=== PATIENT | female | born 1960 | race Caucasian/White ===

== ENCOUNTER → 2016-04-23 | Outpatient (REF) | payer BC | LOC: M LAB REF 16:17 | PROVIDERS: ATTEND Internal Medicine | DX: M79.662 Pain in left lower leg (principal) ==

== ENCOUNTER → 2016-04-23 | Outpatient (CLI) | payer BC ==
[~2016-04-23] MED LIST: ISOVUE-370 76% 100ML VIAL (Q9967) As Ordered ONE
--- NOTE | 2016-04-23 17:06 | REP ---
Left lower extremity Duplex Doppler venous ultrasound: Real time compression and duplex Doppler interrogation of the left lower extremity deep venous system is performed. The left common femoral, superficial femoral and popliteal veins are fully compressible with transducer pressure and demonstrate normal spontaneous and phasic flow, without evidence of deep venous thrombosis. Impression: No evidence of deep venous thrombosis of the left lower extremity femoral popliteal venous system. Signed by Francisco Barrientos MD 04/23/2016 04:57 P
--- NOTE | 2016-04-23 18:26 | REP ---
CHEST PA AND LATERAL: 04/23/2016. Clinical history: Dyspnea and chest pain. Lower extremity swelling on the left. Two-views show the lung cooper adequately inflated. Some minor basilar fibrotic change but no definite effusion. Some minor lateral pleural thickening. No pneumothorax, acute infiltrate or nodular mass. Heart size not grossly enlarged. The aorta is normal for age. Airway is intact. No mediastinal or hilar mass. Degenerative changes are seen in the spine. Bony thorax shows no compression deformity. Right upper quadrant clips from prior cholecystectomy. Impression: 1. Minor basilar fibrotic change without acute cardiopulmonary change. Signed by Brooks Hernández MD 04/23/2016 07:41 P
--- NOTE | 2016-04-23 18:39 | REP ---
CT ANGIOGRAM OF THE CHEST: 04/23/2016. Clinical history: Dyspnea, chest pain, evaluate for pulmonary emboli. Technique: Bolus of 75 mL of Isovue-370 with scanning through the chest with our pulmonary embolism protocol and with coronal and sagittal thick slab MIP reformats. Comparison: 06/30/2012 CT. Findings: Atelectatic changes seen bilaterally in the mid and lower chest. There is no pleural effusion, acute infiltrate or air bronchograms. No bronchiectasis. I do not see any significant interstitial lung disease or fibrosis. No parenchymal mass or nodules. Heart size mildly enlarged, but no pericardial thickening or effusion. The aorta shows atherosclerotic changes but without aneurysm or dissection. The main, right and left pulmonary arteries and the mediastinum are without filling defects. The lobar, segmental and subsegmental arteries are without filling defects or vessel cutoff within either lung. No hilar adenopathy or mass and no axillary, supraclavicular mass. The bone windows show sternum, manubrium, medial heads of the clavicles, scapulae, visualized portions of the glenohumeral joints and humeral heads as well as the ribs all without fracture or destructive lesion. Marginal osteophytes throughout the mid and lower thoracic spine, greatest in the lower thoracic spine, but without compression deformity or destructive lesion. In the upper abdomen, there is no splenomegaly or focal splenic lesion. Only a portion of the liver is included without gross enlargement of the right lobe, although the left lobe is mildly prominent. No biliary dilatation or adjacent ascites. Adrenal glands intact. Upper poles of kidneys show function without obstruction. The adrenal glands without nodular cyst. That portion of pancreas included was unremarkable. Clips about the gallbladder fossa noted with the common duct without visible filling defect. No hiatal hernia. Impression: 1. No CT evidence of pulmonary thromboembolism. I see no infiltrate, effusion or pneumothorax. There is some dependent atelectatic change but no nodule, mass or other significant finding. 2. Slightly prominent left hepatic lobe, but no gross hepatosplenomegaly. 3. No mediastinal, hilar, axillary, supraclavicular or upper abdominal adenopathy. Bones are intact. Signed by Brooks Hernández MD 04/23/2016 07:42 P
== END ==
LOC: M RAD 16:18
PROVIDERS: ATTEND Internal Medicine
DX: R06.02 Shortness of breath (principal); M79.605 Pain in left leg
CPT/HCPCS: 71020; 71275; 93971; Q9967

== ENCOUNTER → 2016-05-02 | Outpatient (CLI) | payer BC ==
[~2016-05-02] MED LIST changes: -ISOVUE-370 76% 100ML VIAL (Q9967) As Ordered ONE; +METHACHOLINE KIT (J7674) INH ONE
== END ==
LOC: M CARPUL 12:31
PROVIDERS: ATTEND Internal Medicine
DX: R06.00 Dyspnea, unspecified (principal)

== ENCOUNTER → 2016-06-25 | Outpatient (REF) | payer BC | LOC: M LAB REF 12:06 | PROVIDERS: ATTEND Internal Medicine | DX: L02.413 Cutaneous abscess of right upper limb (principal) ==

== ENCOUNTER → 2016-06-25 | Outpatient (CLI) | payer BC ==
--- NOTE | 2016-06-27 14:45 | SLEEPHOME ---
DATE OF PROCEDURE: 06/25/2016 REFERRING PROVIDER: Kathy Mckeon NP INTERPRETATION: Diagnostic home sleep testing was performed due to concern for the obstructive sleep apnea syndrome in this patient with history of excessive somnolence. For testing, a NOX-T3 respiratory monitoring device was used. Continuous record was made of pulse, oxygen saturation, air flow, chest and abdominal strain, and body position. 9 hours and 59 minutes of data were reviewed. Of these, 7 hours and 29 minutes were marked as time in bed. During the interval marked time in bed, there were 174 respiratory events identified of 10 seconds in duration or greater for a respiratory event index of 23.2. The events were primarily obstructive. Baseline heart rate was 69 beats per minute. Pulse rate ranged 56 to 84. Baseline saturation was 89%. Lowest oxygen saturation recorded was 57%. Testing was performed in both the supine and nonsupine positions. IMPRESSION: Abnormal home sleep testing with repetitive respiratory events and oxygen desaturations to 57% with a respiratory event index of 23 is consistent with the obstructive sleep apnea syndrome. RECOMMENDATION: The patient should undergo formal sleep evaluation and in laboratory pressure titration in light of the profound oxygen desaturations.
== END ==
LOC: M SLEEP HO 09:59
PROVIDERS: ATTEND Nurse Practitioner Adult Health
DX: G47.30 Sleep apnea, unspecified (principal)

== ENCOUNTER → 2016-08-05 | Outpatient (CLI) | payer BC ==
--- NOTE | 2016-08-07 11:19 | SLEEPCENT ---
DATE OF STUDY: 08/05/2016 ORDERING PROVIDER: Kathy Mckeon NP Nocturnal polysomnography was performed for the titration of pressure therapy in this patient with a clinical diagnosis of obstructive sleep apnea syndrome, confirmed by home testing, which revealed a respiratory event index of 24. For testing, the patient was fit with a ResMed AirFit F20 full face mask of medium size. 4 cm of water pressure were applied to the circuit, and the lights were extinguished. 7 hours and 22 minutes of data were reviewed. There were 373 minutes of sleep identified. Sleep latency was prolonged at 59 minutes. Rapid eye movement (REM) latency was prolonged at 110 minutes. Sleep architecture was quite good with three REM periods appreciated. Overall sleep efficiency was 85%. The patient's electrocardiogram (EKG) showed a sinus rhythm with an average heart rate of 58 beats per minute. Electroencephalogram (EEG) showed normal waveforms for awake and sleep. Respiratory events were fully palliated with continuous positive airway pressure (CPAP) at a pressure of +8. Hypoventilatory oxygen desaturations, however, prompted the addition of supplemental oxygen at 2 liters. Best sleep was seen with CPAP 8 cm and 2 liters of oxygen bled through the system. Limb activity persisted over the course of the study, but arousals were few, and the remaining measures of sleep physiology were normal. IMPRESSION: Obstructive sleep apnea syndrome (G47.33). RECOMMENDATION: Nightly use of pressure therapy with 8 cm of water with supplemental oxygen at 2 liters to address hypoventilatory oxygen desaturations.
== END ==
LOC: M SLEEP 20:25
PROVIDERS: ATTEND Nurse Practitioner Adult Health
DX: G47.33 Obstructive sleep apnea (adult) (pediatric) (principal)

== ENCOUNTER → 2016-12-28 | Outpatient (REF) | payer BC | LOC: M LAB REF 16:19 | PROVIDERS: ATTEND Internal Medicine | DX: L03.115 Cellulitis of right lower limb (principal) ==

== ENCOUNTER → 2017-02-19 | Outpatient (REF) | payer BC | LOC: M LAB REF 12:05 | PROVIDERS: ATTEND Internal Medicine | DX: L72.3 Sebaceous cyst (principal) ==

== ENCOUNTER → 2017-04-17 | Outpatient (REF) | payer MEDICAID | LOC: M LAB REF 17:10 | DX: J20.9 Acute bronchitis, unspecified (principal) ==

== ENCOUNTER → 2018-02-21 | Outpatient (REF) | payer MEDICAID, OTHER | LOC: M SFHCPLAZ 17:36 | DX: L57.0 Actinic keratosis (principal); L57.8 Other skin changes due to chronic exposure to nonionizing radiation | CPT/HCPCS: 88305 ==

== ENCOUNTER → 2019-03-26 | Outpatient (REF) | payer OTHER, MEDICAID | LOC: M LAB REF 18:15 | PROVIDERS: ATTEND Dermatology | DX: L57.0 Actinic keratosis (principal) ==

== ENCOUNTER → 2019-07-16 | Outpatient (REF) | payer OTHER | LOC: M LAB REF 16:56 | PROVIDERS: ATTEND Dermatology | DX: L72.0 Epidermal cyst (principal) ==

== ENCOUNTER → 2020-04-06 | Outpatient (CLI) | payer OTHER ==
--- NOTE | 2020-04-06 10:48 | REP ---
INDICATION: DVT COMPARISON: None. TECHNIQUE: Barrientos scale and color Doppler evaluation right lower extremity using linear high frequency transducer. FINDINGS: Ultrasound examination of the right lower extremity deep venous structures from the common femoral vein to the popliteal vein demonstrates normal compressibility flow and wave patterns in response to respiration and augmentation. There is no evidence for deep venous thrombosis. IMPRESSION: No evidence for deep venous thrombosis. <Electronically signed by Gerson Pollard > 04/06/20 [id number]
== END ==
LOC: M RAD 10:03
PROVIDERS: ATTEND Physician Assistant
DX: R22.41 Localized swelling, mass and lump, right lower limb (principal); M79.604 Pain in right leg

== ENCOUNTER 2020-11-10 20:38 | Emergency (ER) | payer OTHER ==
[~2020-11-10] VITALS: Ht 170.2 cm; Wt 114.8 kg
[2020-11-10] MEDS ORDERED: GABA-282 (20:54)
[2020-11-10] MEDS ORDERED: IRBE150T7 (20:54)
[2020-11-10] MEDS ORDERED: PRAM1TAB7 (20:54)
[2020-11-10] MEDS ORDERED: DULO1CAP6 (20:54)
[2020-11-10] MEDS ORDERED: XARE15TA (20:54)
[2020-11-10] MEDS ORDERED: MONT10TA10 (20:54)
[2020-11-10] MEDS ORDERED: SIMV10TA21 (20:54)
[2020-11-10] MEDS ORDERED: LEVO150T7 (20:54)
--- NOTE | 2020-11-10 22:03 | REPVR ---
PROCEDURE INFORMATION: Exam: US Duplex Right Lower Extremity Veins, Limited Exam date and time: 11/10/2020 9:41 PM Age: 60 years old Clinical indication: Pain; Leg, lower; Right; Additional info: HX of bloot clots with pain and swelling of right lower leg TECHNIQUE: Imaging protocol: Real-time Duplex ultrasound of the Right Lower Extremity with 2-D gr scale, color Doppler flow and spectral waveform analysis with image documentation. Limited exam was focused on the right lower extremity veins. COMPARISON: US Duplex, Ext,LOWER veins,unilat 04/06/2020 10:38 AM FINDINGS: Right deep veins: Unremarkable. The common femoral, femoral, proximal profunda femoral and popliteal veins are patent without thrombus. Normal Doppler waveforms. Normal compressibility and/or augmentation response. Right superficial veins: Unremarkable. Saphenofemoral junction is patent without thrombus. Soft tissues: Unremarkable. IMPRESSION: No evidence of deep vein thrombosis. Electronically signed by: Abner Crow On 11/10/2020 22:02:56 PM
[2020-11-10 23:53] LABS: BASO % 0.4 % (0.0-1.0); EOS # 0.3 10^3/uL (0.0-0.5); EOS % 3.6 % (0.0-3.0); HEMATOCRIT 42.6 % (36.0-47.0); HEMOGLOBIN 13.5 g/dl (12.0-15.5); LYMPH # 2.4 10^3/uL (1.5-5.0); LYMPH % 32.9 % (24.0-44.0); MEAN CORPUSCULAR HEMOGLOBIN 30.2 pg (27.0-33.0); MEAN CORPUSCULAR HGB CONC 31.7 g/dl (32.0-36.5); MEAN CORPUSCULAR VOLUME 95.3 fl (80.0-96.0); MONO # 0.8 10^3/uL (0.0-0.8); MONO % 11.7 % (2.0-8.0); NEUTROPHILS # 3.7 10^3/uL (1.5-8.5); NEUTROPHILS % 51.1 % (36.0-66.0); PLATELET COUNT, AUTOMATED 248 10^3/uL (150-450); RED BLOOD COUNT 4.47 10^6/uL (4.00-5.40); WHITE BLOOD COUNT 7.2 10^3/uL (4.0-10.0)
[2020-11-11 00:07] LABS: PARTIAL THROMBOPLASTIN TIME 29.4 SECONDS (25.9-37.0)
[2020-11-11] MEDS ORDERED: ACETAMINOPHEN 500 MG TAB PO ONE (00:15)
[2020-11-11] MEDS ORDERED: GABAPENTIN 300 MG CAP PO ONE (00:15)
[2020-11-11 00:29] LABS: BLOOD UREA NITROGEN 12 MG/DL (7-18); C REACTIVE PROTEIN QUANTITATIV 1.14 MG/DL (0.00-0.30); CALCIUM LEVEL 8.8 MG/DL (8.8-10.2); CARBON DIOXIDE LEVEL 29 MEQ/L (21-32); CHLORIDE LEVEL 111 MEQ/L (98-107); CREATININE FOR GFR 0.88 MG/DL (0.55-1.30); GLOMERULAR FILTRATION RATE > 60.0 (>45); GLUCOSE, FASTING 95 MG/DL (70-100); SODIUM LEVEL 143 MEQ/L (136-145); URIC ACID 6.2 MG/DL (2.6-6.0)
[2020-11-11 00:33] LABS: INR 0.95; PROTHROMBIN TIME 13.1 SECONDS (12.7-14.5)
[2020-11-11 00:36] LABS: ERYTHROCYTE SEDIMENTATION RATE 35 mm/hr (0-30)
--- NOTE | 2020-11-11 01:49 | REPVR ---
PROCEDURE INFORMATION: Exam: XR Right Foot Exam date and time: 11/11/2020 12:49 AM Age: 60 years old Clinical indication: Other: R foot pain, redness/swelling TECHNIQUE: Imaging protocol: XR Right foot. Views: 3 or more views. COMPARISON: 1. US Duplex, Ext,LOWER veins,unilat RIGHT 2020-11-10 21:32 2. US Duplex, Ext,LOWER veins,unilat 2020-04-06 10:38 FINDINGS: Bones/joints: Moderate degenerative joint disease. No bony erosion. Soft tissues: Soft tissue swelling. IMPRESSION: Soft tissue swelling. No bony erosion. Electronically signed by: Tahir Patton On 11/11/2020 01:48:56 AM
--- NOTE | 2020-11-11 01:50 | REPVR ---
PROCEDURE INFORMATION: Exam: XR Right Tibia and Fibula Exam date and time: 11/11/2020 12:49 AM Age: 60 years old Clinical indication: Other: Rle redness/swelling, ttp TECHNIQUE: Imaging protocol: XR Right tibia and fibula. Views: 2 views. COMPARISON: 1. US Duplex, Ext,LOWER veins,unilat RIGHT 2020-11-10 21:32 2. US Duplex, Ext,LOWER veins,unilat 2020-04-06 10:38 FINDINGS: Bones/joints: Moderate degenerative joint disease.No acute fracture or dislocation. Soft tissues: Mild soft tissue swelling. IMPRESSION: No acute osseous abnormality. Electronically signed by: Tahir Patton On 11/11/2020 01:50:23 AM
[2020-11-11] MEDS ORDERED: CLINDAMYCIN 600 MG in IV 1 EA IV ONE (02:00)
[2020-11-11] MEDS ORDERED: CEPH500C PO (02:01)
[2020-11-11] MEDS ORDERED: PRED20TA PO (02:01)
[2020-11-11 02:54] VITALS: BP 152/76
== END 2020-11-11 02:56 | disposition home or self-care (01) ==
LOC: M ED 20:38
DX: L03.115 Cellulitis of right lower limb (principal); E66.9 Obesity, unspecified; I10 Essential (primary) hypertension; M51.86 Other intervertebral disc disorders, lumbar region; M54.9 Dorsalgia, unspecified; E78.5 Hyperlipidemia, unspecified; J45.909 Unspecified asthma, uncomplicated; E03.9 Hypothyroidism, unspecified; F32.9 Major depressive disorder, single episode, unspecified; Z86.718 Personal history of other venous thrombosis and embolism

== ENCOUNTER 2021-01-08 14:21 | Emergency (ER) | payer OTHER ==
[~2021-01-08] VITALS: Ht 167.6 cm; Wt 127.3 kg
[~2021-01-08 14:21] MED LIST changes: +CEPH500C PO; +DULO1CAP6; +GABA-282; +IRBE150T7; +LEVO150T7; -METHACHOLINE KIT (J7674) INH ONE; +MONT10TA10; +PRAM1TAB7; +PRED20TA PO; +SIMV10TA21; +XARE15TA
--- OUTSIDE RECORDS SUMMARY | 2021-01-08 14:28 | CCD | Continuity of Care Document ---
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 take on empty stomach. 30tabs Unknown Gabapentin 100mg Capsules 1 by mouth twice a day Unknown Irbesartan 150mg Tablets Take One Tablet By Mouth Every Day Unknown Pramipexole Dihydrochloride 1mg Ta blets Take One Tablet By Mouth Every Morning And One Tablet Before Bedtime Unknown Immunizations Description No Information Available Vital Signs Date Vital Result Comment 03/16/2019 10:27am BP Systolic 153 mmHg BP Diastolic 80 mmHg Heart Rate 67 /min Respiratory Rate 20 /min O2 % BldC Oximetry 97 % Body Temperature 99.0 F Weight 228.00 lb Height 67 inches 5'7" BMI (Body Mass Index) 35.7 kg/m2 Pain Level 5 12/06/2018 1:06pm BP Systolic 143 mmHg BP Diastolic 79 mmHg Heart Rate 61 /min Respiratory Rate 18 /min O2 % BldC Oximetry 97 % Body Temperature 98.7 F Weight 228.00 lb Height 67 inches 5'7" BMI (Body Mass Index) 35.7 kg/m2 Pain Level 6 Results Test Acquired Date Facility Test Result H/L Range Note Basic Metabolic Profile 11/10/[address] [address] [phone] Glucose, Fasting 95 mg/dL Normal 70-100 1 Blood Urea Nitrogen 12 mg/dL Normal 7-18 Creatinine For GFR 0.88 mg/dL Normal 0.55-1.30 Glomerular Filtration Rate > 60.0 Normal >45 2 Sodium Level 143 mEq/L Normal 136-145 Potassium Serum 4.0 mEq/L Normal 3.5-5.1 Chloride Level 111 mEq/L High 98-107 Carbon Dioxide Level 29 mEq/L Normal 21-32 Anion Gap 3 mEq/L Low 8-16 Calcium Level 8.8 mg/dL Normal 8.8-10.2 Laboratory test finding 11/10/[address] [address] [phone] Uric Acid 6.2 mg/dL High 2.6-6.0 3 C Reactive Protein Quantitativ 1.14 mg/dL High 0.00-0.30 4 Prothrombin Time/Inr 11/10/2020 [facility] enter [address] [place] [address] [phone] Prothrombin Time 13.1 seconds Normal 12.7-14.5 Inr 0.95 Normal 5 Laboratory test finding 11/10/[address] [address] [phone] Partial Thromboplastin Time 29.4 seconds Normal 25 .9-37.0 CBC With Differential 11/10/[address] [address] [phone] White Blood Count 7.2 10 Normal 4.0-10.0 Red Blood Count 4.47 10 Normal 4.00-5.40 Hemoglobin 13.5 g/dL Normal 12.0-15.5 Hematocrit 42.6 % Normal 36.0-47.0 Mean Corpuscular Volume 95.3 fl Normal 80.0-96.0 Mean Corpuscular Hemoglobin 30.2 pg Normal 27.0-33.0 Mean Corpuscular HGB Conc 31.7 g/dL Low 32.0-36.5 Red Cell Distribution Width 13.1 % Normal 11.5-14.5 Platelet Count, Automated 248 10 Normal 150-450 Neutrophils % 51.1 % Normal 36.0-66.0 Lymph % 32.9 % Normal 24.0-44.0 [place] % 11.7 % High 2.0-8.0 Eos % 3.6 % High 0.0-3.0 Baso % 0.4 % Normal 0.0-1.0 Immature Granulocyte % 0.3 % Normal 0-3.0 Nucleated Red Blood Cell % 0.0 % Normal 0-0 Neutrophils # 3.7 10 Normal 1.5-8.5 Lymph # 2.4 10 Normal 1.5-5.0 [place] # 0.8 10 Normal 0.0-0.8 Eos # 0.3 10 Normal 0.0-0.5 Baso # 0.0 10 Normal 0.0-0.2 Laboratory test finding 11/10/2020 [place] [address] [phone] Erythrocyte Sedimentation Rate 35 mm/hr High 0 -30 1 Not an Urgent Care Patient 2 Units are mL/min/1.73 m2 Chronic Kidney Disease Staging per NKF: Stage I & II GFR >=60 Normal to Mildly Decreased Stage III GFR 30-59 Moderately Decreased Stage IV GFR 15-29 Severely Decreased Stage V GFR <15 Very Little GFR Left ESRD GFR <15 on MAID SUPERVISOR 3 0003] @---END MOBILAB COMMEN T--- 4 0003] @---END MOBILAB COMMEN T--- 5 THERAPUTIC HUMAN INR VALUES INDICATIONS NORMAL RANGES PROPHYLAXIS/TREATMENT OF: VENOUS THROMBOSIS 2.0-3.0 PULMONARY EMBOLISM 2.0-3.0 PREVENTION OF SYSTEMIC EMBOLISM FROM: TISSUE HEART VALVES 2.0-3.0 ACUTE MYOCARDIAL INFARCTION 2.0-3.0 VALVULAR HEART DISEASE 2.0-3.0 ATRIAL FIBRILLATION 2.0-3.0 MECHANICAL VALVES(HIGH RISK) 2.5-3.5 RECURRENT MYOCARDIAL INFARCTION 2.5-3.5 Procedures Description No Information Available Medical Devices Description No Information Available Encounters Description No Information Available Assessments Description No Information Available Plan of Treatment No Information Available Functional Status Description No Information Available Mental Status Description No Information Available Referrals Description No Information Available
--- OUTSIDE RECORDS SUMMARY | 2021-01-08 14:28 | CCD | Continuity of Care Document ---
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 Camp ra DO Grace Onset: 08/03/2011 Pure hypercholesterolemia Fatou Greco DO Onset: 012 Varicose veins of lower extremity Fatou Greco DO Onset: 08/03/2011 Social History Type Date Description Comments Sex Unknown Tobacco Use Start: Unknown Never Smoked Cigarettes ETOH Use Occasionally consumes wine Tobacco Use Start: Unknown Patient has never smoked Allergies, Adverse Reactions, Alerts Description No Known Drug Allergies Medications Active Medications SIG Qnty Indications Ordering Provide r Date Xarelto 10mg Tablets 1 by mouth every day with food 30tabs Fatou Greco DO 09/07/2020 Gabapentin 100mg Capsules 1 an am and 1 in afternoon 60gerard Greco DO 07/08/2020 Levothyroxine Sodium 150mcg Tablet s take one tablet by mouth every day 30tabs Fatou Greco DO Aspirin 81 Low Dose 81mg Chewtabs 1 by mouth every day 30units Fatou Greco DO 04/07/2020 Duloxetine HCL 60mg Caps DR Part Take One Capsule By Mouth Twice A Day 60caps Fatou Greco DO 05/2019 Montelukast Sodium 10mg Tablets Take One Tablet By Mouth AT Bedtime 30tabs Fatou Greco,DO 01/19 Pramipexole Dihydrochloride 1mg Ta blets take one tablet by mouth every morning and take one tablet by mouth at bedtime 60tabs Fatou Greco,DO 09/12/2018 Irbesartan 150mg Tablets Take One Tablet By Mouth Every Day 90tabs Fatou Greco,DO 10/22/2017 Simvastatin 10mg Tablets take one tablet by mouth at bedtime 30tabs Fatou Greco,DO 09/19/2017 Cetirizine HCL 10mg Tablets one tab by mouth daily at bed time 30tabs Fatou Greco,DO 03/07/20 17 Hibiclens 4% Liquid use as directed with showering daily 750ml Fatou Greco,DO 01/04/2017 Vesicare 10mg Tablets take one tablet by mouth every day 30tabs Fatou Greco,DO 11/05/2016 Clobetasol Propionate E 0.05% Crea m apply to affected areas twice a day 180gm Fatou Greco,DO Proair Respiclick 10 8(90Base) mcg/Act Aerosol one to two puffs four times a day or as needed for cough or shortness of breath and before exercising. 1units Fatou GrecoDO Co Q 10 100mg Capsules 1 by mouth every day Fatou Greco,DO 01/20/2016 Tylenol 8 Hour Arthritis Pain 650mg Tablets ER 1 by mouth as needed every 8 hours Fatou GrecoDO 11/29/2015 Flonase Allergy Relief 50mcg/Act Suspension 2 sprays per nostril every in the morning as needed 1units Fatou GrecoDO 05/06/2015 Gabapentin 300mg Capsules take one in pm 30caps Fatou GrecoDO 12/08/2014 Compression Stockings 30-40 use as directed 2units Fatou Greco DO 04/04/2011 Triamcinolone Acetonide 0.1% Cream use bid as directed 1Tube Fatou Greco DO 04/04/2011 Vitamin D3 2000Unit Capsules 1 po qd 30caps Fatou GrecoDO 03/15/2009 Clindamycin Phosphate 1% Solution 1 drop to affected area bid Unknown Medications Administered in Office Medication SIG Qnty Indications Ordering Provider Date Immunization Adminstration,1 Vaccine/Tox oid Injection Fatou Greco,DO 12/28/2019 Immunization Adminstration,1 Vaccine/Tox oid Injection Fatou Greco,DO 01/20/2019 Immunization Adminstration,1 Vaccine/Tox oid Injection Fatou Greco,DO 01/23/2018 Immunizations CPT Code Status Date Vaccine Lot # [id number] Given 12/28/2019 Influenza Vaccin e Quadrivalent Preser/Antibiotic Free Im Use [id number] Given 01/20/2019 Influenza Vaccin e Quadrivalent Preser/Antibiotic Free Im Use [id number] [id number] Given 01/23/2018 Influenza Virus Vaccine, Quadrivalent ([id number]), Derived From 2 Given 12/28/2016 Influenza Vaccin e Quadrivalent Preser/Antibiotic Free Im Use [id number] Q2037 Given 02/20/2016 Fluvirin Virus Vaccine [id number] 01 Q2037 Given 12/24/2014 Fluvirin Virus Vaccine [id number] 01 Q2037 Given 01/09/2013 Fluvirin Virus Vaccine [id number] 01 Q2037 Given 01/14/2012 Fluvirin Virus Vaccine 60617 01 [id number] Given 01/31/2009 Influenza Virus Vaccine Vital Signs Date Vital Result Comment 09/07/2020 9:35am BP Systolic 132 mmHg BP Diastolic 80 mmHg Heart Rate 74 /min Height 66 inches 5'6" Weight 256.00 lb BMI (Body Mass Index) 41.3 kg/m2 07/08/2020 9:37am BP Systolic 138 mmHg RT Arm BP Diastolic 84 mmHg RT Arm Heart Rate 64 /min Height 66 inches 5'6" Weight 260.12 lb BMI (Body Mass Index) 42.0 kg/m2 Results Test Acquired Date Facility Test Result H/L Range Note Basic Metabolic Profile 11/10/[address] [address] [phone] Glucose, Fasting 95 mg/dL Normal 70-100 Blood Urea Nitrogen 12 mg/dL Normal 7-18 Creatinine For GFR 0.88 mg/dL Normal 0.55-1.30 Glomerular Filtration Rate > 60.0 Normal >45 1 Sodium Level 143 mEq/L Normal 136-145 Potassium Serum 4.0 mEq/L Normal 3.5-5.1 Chloride Level 111 mEq/L High 98-107 Carbon Dioxide Level 29 mEq/L Normal 21-32 Anion Gap 3 mEq/L Low 8-16 Calcium Level 8.8 mg/dL Normal 8.8-10.2 Laboratory test finding 11/10/[address] [address] [phone] Uric Acid 6.2 mg/dL High 2.6-6.0 2 C Reactive Protein Quantitativ 1.14 mg/dL High 0.00-0.30 3 Prothrombin Time/Inr 11/10/2020 [facility] enter [address] [place] [address] [phone] Prothrombin Time 13.1 seconds Normal 12.7-14.5 Inr 0.95 Normal 4 Laboratory test finding 11/10/[address] [address] [phone] Partial Thromboplastin Time 29.4 seconds Normal 25 .9-37.0 CBC With Differential 11/10/[address] [address] [phone] White Blood Count 7.2 10 Normal 4.0-10.0 [...] 36.0-66.0 Lymph % 32.9 % Normal 24.0-44.0 Campbell % 11.7 % High 2.0-8.0 Eos % 3.6 % High 0.0-3.0 Baso % 0.4 % Normal 0.0-1.0 Immature Granulocyte % 0.3 % Normal 0-3.0 Nucleated Red Blood Cell % 0.0 % Normal 0-0 Neutrophils # 3.7 10 Normal 1.5-8.5 Lymph # 2.4 10 Normal 1.5-5.0 Campbell # 0.8 10 Normal 0.0-0.8 Eos # 0.3 10 Normal 0.0-0.5 Baso # 0.0 10 Normal 0.0-0.2 Laboratory test finding 11/10/2020 [facility] [address] [id number] [phone] Erythrocyte Sedimentation Rate 35 mm/hr High 0 -30 Comprehensive Chem Profile 09/07/2020 [facility] [employer] Instrument Tuner: [place] [address] [phone] Glucose 116 mg/dL High 74 - 99 5 BUN 14 mg/dL 7 - 18 Creatinine 0.9 mg/dL 0.6 - 1.3 Sodium 140 mEq/L 136 - 145 Potassium 4.2 mEq/L 3.5 - 5.1 Chloride 104 mEq/L 98 - 107 Carbon Dioxide 28 mEq/L 21 - 32 Calcium 9.1 mg/dL 8.5 - 10.1 Alk. Phosphatase 122 mg/dL High 46 - 116 Total Bilirubin 0.4 mg/dL 0.2 - 1.0 Ast (Sgot) 19 U/L 15 - 37 Alt (SGPT) 23 U/L 12 - 78 Albumin 3.4 g/dL 3.4 - 5.0 Total Protein 7.0 g/dL 6.4 - 8.2 A/G Ratio 0.94 CALC Low 1.00 - 1.90 GFR >= 60 mL/min >60 GFR >= 60 mL/min >60 6 Laboratory test finding 09/07/2020 [facility] P[employer] Instrument Tuner: [place] [address] [phone] Thyroid Stimulating Hormone 0.84 uIU/mL 0.3 6 - 3.74 Complete Blood Count 07/08/2020 [facility] [employer] Instrument Tuner: [place] [address] [phone] WBC 5.6 x10*3/UL 4.1 - 10.9 RBC 4.44 x10*6/UL 4.20 - 6.30 Hemoglobin 13.5 g/dL 12.0 - 18.0 Hematocrit 40.2 % 37.0 - 51.0 MCV 90.5 fL 80.0 - 97.0 MCH 30.5 pg 26.0 - 32.0 MCHC 33.7 g/dL 31.0 - 38.0 RDW 12.8 % 11.6 - 13.7 PLT 230 x10*3/UL 140 - 440 MPV 9.9 FL 7.8 - 11.0 Lymph % 31.2 % 10.0 - 58.5 Mid % 8.5 % 1.7 - 9.3 Neut % 60.3 % 37.0 - 92.0 Lymph # 1.7 x10*3/UL 0.6 - 4.1 Mid # 0.5 x10*3/UL 0.1 - 0.6 Neut # 3.4 x10*3/UL 2.0 - 7.8 Comprehensive Chem Profile 07/08/2020 [facility] [employer] Tuner: [place] [address] [phone] Glucose 123 mg/dL High 74 - 99 7 BUN 18 mg/dL 7 - 18 Creatinine 1.0 mg/dL 0.6 - 1.3 Sodium 140 mEq/L 136 - 145 Potassium 4.1 mEq/L 3.5 - 5.1 Chloride 105 mEq/L 98 - 107 Carbon Dioxide 28 mEq/L 21 - 32 Calcium 8.8 mg/dL 8.5 - 10.1 Alk. Phosphatase 111 mg/dL 46 - 116 Total Bilirubin 0.5 mg/dL 0.2 - 1.0 Ast (Sgot) 26 U/L 15 - 37 Alt (SGPT) 30 U/L 12 - 78 Albumin 3.8 g/dL 3.4 - 5.0 Total Protein 7.5 g/dL 6.4 - 8.2 A/G Ratio 1.03 CALC 1.00 - 1.90 GFR 57 mL/min Low >60 GFR >= 60 mL/min >60 8 Laboratory test finding 07/08/2020 [facility] Percussion Instrument Tuner: Dr Enmanuel [place] [address] [phone] Thyroid Stimulating Hormone 3.58 uIU/mL 0.3 6 - 3.74 T4 Free 1.04 ng/dL 0.76 - 1.46 1 Units are mL/min/1.73 m2 Chronic Kidney Disease Staging per NKF: Stage I & II GFR >=60 Normal to Mildly Decreased Stage III GFR 30-59 Moderately Decreased Stage IV GFR 15-29 Severely Decreased Stage V GFR <15 Very Little GFR Left ESRD GFR <15 on [facility] [facility] 2 0003] @---END MOBILAB COMMEN T--- 3 0003] @---END MOBILAB COMMEN T--- 4 THERAPUTIC HUMAN INR VALUES INDICATIONS NORMAL RANGES PROPHYLAXIS/TREATMENT OF: VENOUS THROMBOSIS 2.0-3.0 PULMONARY EMBOLISM 2.0-3.0 PREVENTION OF SYSTEMIC EMBOLISM FROM: TISSUE HEART VALVES 2.0-3.0 ACUTE MYOCARDIAL INFARCTION 2.0-3.0 VALVULAR HEART DISEASE 2.0-3.0 ATRIAL FIBRILLATION 2.0-3.0 MECHANICAL VALVES(HIGH RISK) 2.5-3.5 RECURRENT MYOCARDIAL INFARCTION 2.5-3.5 5 100-125 mg/dL PRE-DIABET ES/FASTING >126 mg/dL DIABETES/FASTING 6 CHRONIC KIDNEY DISEASE STAGI NG PER NKF STAGE I & II GFR >= 60 NORMAL TO MILDLY DECREASED STAGE III GFR 30-59 MODERATELY DECREASED STAGE IV GFR 15-29 SEVERELY DECREASED STAGE V GFR <15 VERY LITTLE GFR LEFT ESRD GFR <15 ON [facility] 7 100-125 mg/dL PRE-DIABET ES/FASTING >126 mg/dL DIABETES/FASTING 8 CHRONIC KIDNEY DISEASE STAGI NG PER NKF STAGE I & II GFR >= 60 NORMAL TO MILDLY DECREASED STAGE III GFR 30-59 MODERATELY DECREASED STAGE IV GFR 15-29 SEVERELY DECREASED STAGE V GFR <15 VERY LITTLE GFR LEFT ESRD GFR <15 ON [facility] Procedures Date Code Description Status 09/07/2020 10685 Office/Outpatient Established Mo d MDM 30-39 Min Completed 07/08/2020 09892 Office/Outpatient Established Mo d MDM 30-39 Min Completed 01/15/2020 [id number] Mammogram Completed 08/25/2018 [id number] Mammogram Completed 04/30/2014 [id number] Colonoscopy Completed 02/15/2014 [id number] Mammogram Completed 02/10/2013 [id number] Mammogram Completed 01/24/2012 [id number] Mammogram Completed Medical Devices Description No Information Available Encounters Type Date Location Provider Dx Diagnosis [facility]/07[facility] I[facility] Phlbts and thombophlb of superfic vessels of low extrm, bi M43.17 Spondylolisthesis, lumbosacr al region M54.17 Radiculopathy, lumbosacral r egion E03.9 Hypothyroidism, unspecified G47.33 Obstructive sleep apnea (carolyn lt) (pediatric) I10 Essential (primary) hyperten ami G89.29 Other chronic pain E66.01 Morbid (severe) obesity due to excess calories Z68.41 Body mass index [BMI] 40.0-4 4.9, adult Office Visit 07/08/2020 9:[facility] I80.03 Phlbts and thombophlb of superfic vessels of low extrm, bi M43.17 Spondylolisthesis, lumbosacr al region M54.17 Radiculopathy, lumbosacral r egion E03.9 Hypothyroidism, unspecified G47.33 Obstructive sleep apnea (carolyn lt) (pediatric) I10 Essential (primary) hyperten ami H81.319 Aural vertigo, unspecified e ar E66.01 Morbid (severe) obesity due to excess calories Z68.41 Body mass index [BMI] 40.0-4 4.9, adult Assessments Date Code Description Provider 09/07/2020 I80.03 Phlebitis and thromb ophlebitis of superficial vessels of lower extremities, bilateral Fatou Greco,DO 09/07/2020 M43.17 Spondylolisthesis, lumbosacral r egion Fatou Greco,DO 09/07/2020 M54.17 Radiculopathy, lumbosacral regio n Fatou Greco,DO 09/07/2020 E03.9 Hypothyroidism, unspecified Fritz Greco,DO 09/07/2020 G47.33 Obstructive sleep apnea (adult) (pediatric) Fatou Greco,DO 09/07/2020 I10 Essential (primary) hypertension Fatou Greco,DO 09/07/2020 G89.29 Other chronic pain Damari Escobar 09/07/2020 E66.01 Morbid (severe) obesity due to e xcess calories Fatou Greco,DO 09/07/2020 Z68.41 Body mass index [BMI]40.0-44.9, adult Fatou Greco,DO 07/08/2020 I80.03 Phlebitis and thromb ophlebitis of superficial vessels of lower extremities, bilateral Fatou Greco,DO 07/08/2020 M43.17 Spondylolisthesis, lumbosacral r egion Fatou Greco,DO 07/08/2020 M54.17 Radiculopathy, lumbosacral regio n Fatou Greco,DO 07/08/2020 E03.9 Hypothyroidism, unspecified Fritz Greco,DO 07/08/2020 G47.33 Obstructive sleep apnea (adult) (pediatric) Fatou Greco,DO 07/08/2020 I10 Essential (primary) hypertension Fatou Greco,DO 07/08/2020 H81.319 Aural vertigo, unspecified ear L darion Greco,DO 07/08/2020 E66.01 Morbid (severe) obesity due to e xcess calories Fatou Greco,DO 07/08/2020 Z68.41 Body mass index [BMI]40.0-44.9, adult Fatou Greco DO Plan of Treatment Future Appointment(s):* 02/03/2021 10:20 am - Fatou Greco DO at [facility] 09/07/2020 - Fatou Greco DO* I80.03 Phlebitis and thrombophlebitis of superficial vessels of lower extremities, bilateral * M43.17 Spondylolisthesis, lumbosacral region * M54.17 Radiculopathy, lumbosacral region * E03.9 Hypothyroidism, unspecified * G47.33 Obstructive sleep apnea (adult) (pediatric) * I10 Essential (primary) hypertension * G89.29 Other chronic pain * E66.01 Morbid (severe) obesity due to excess calories * Z68.41 Body mass index [BMI]40.0-44.9, adult * All * New Medication:* Xarelto 10 mg - 1 by mouth every day with food Functional Status Description No Information Available Mental Status Description No Information Available Referrals Description No Information Available
--- OUTSIDE RECORDS SUMMARY | 2021-01-08 14:29 | CCD ---
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 Name Role Phone Shanae Astudillo MD Unavailable Unavailable Shanae sAtudillo MD Unavailable Unavailable Shanae Astudillo MD Unavailable Unavailable Shanae Astudillo MD Unavailable Unavailable Shanae Astudillo MD Unavailable Unavailable Shanae Astudillo MD Unavailable Unavailable Shanae Astudillo MD Unavailable Unavailable Shanae Astudillo MD Unavailable Unavailable Shanae Astudillo MD Unavailable Unavailable Shanae Astudillo MD Unavailable Unavailable Shanae Astudillo MD Unavailable Unavailable Shanae Astudillo MD Unavailable Unavailable Shanae Astudillo MD Unavailable Unavailable Shanae Astudillo MD Unavailable Unavailable Shanae Astudillo MD Unavailable Unavailable Shanae Astudillo MD Unavailable Unavailable Shanae Astudillo MD Unavailable Unavailable Shanae Astudillo MD Unavailable Unavailable Shanae Astudillo MD Unavailable Unavailable Sahnae Astudillo MD Unavailable Unavailable Shanae Astudillo MD Unavailable Unavailable Shanae Astudillo MD Unavailable Unavailable Shanae Astudillo MD Unavailable Unavailable Shanae Astudillo MD Unavailable Unavailable Bolla, S Kieran DAIGLE Unavailable Unavailable Bolla, Shanae Alcaraz MD Unavailable Unavailable Bolla, S Kieran DAIGLE Unavailable Unavailable Bolla, S Kieran DAIGLE Unavailable Unavailable Bolla, S Kieran DAIGLE Unavailable Unavailable Bolla, S Kieran DAIGLE Unavailable Unavailable Bolla, Shanae Alcaraz MD Unavailable Unavailable Bolla, S Kieran DAIGLE Unavailable Unavailable Bolla, S Kieran DIAGLE Unavailable Unavailable Bolla, S Kieran DAIGLE Unavailable Unavailable Bolla, S Kieran DAIGLE Unavailable Unavailable Bolla, S Kieran DAIGLE Unavailable Unavailable Bolla, S Kieran DAIGLE Unavailable Unavailable Bolla, S Kieran DAIGLE Unavailable Unavailable Bolla, S Kieran DAIGLE Unavailable Unavailable Bolla, S Kieran DAIGLE Unavailable Unavailable Bolla, S Kieran DAIGLE Unavailable Unavailable Bolla, S Kieran DAIGLE Unavailable Unavailable Bolla, S Kieran DAIGLE Unavailable Unavailable Bolla, S Kieran DAIGLE Unavailable Unavailable Bolla, S Kieran DAIGLE Unavailable Unavailable Bolla, S Kieran DAIGLE Unavailable Unavailable Bolla, S Kieran DAIGLE Unavailable Unavailable Bolla, S Kieran DAIGLE Unavailable Unavailable Bolla, Shanae Alcaraz MD Unavailable Unavailable CHANG, Isaiah SHAW MD Unavailable Unavailable CHANG, Isaiah SHAW MD Unavailable Unavailable CHANG, Isaiah SHAW MD Unavailable Unavailable CHANG, Isaiah SHAW MD Unavailable Unavailable CHANG, Isaiah SHAW MD Unavailable Unavailable CHANG, Isaiah SHAW MD Unavailable Unavailable CHANG, Isaiah SHAW MD Unavailable Unavailable CHANG, Isaiah SHAW MD Unavailable Unavailable CHANG, Isaiah SHAW MD Unavailable Unavailable CHANG, Isaiah SHAW MD Unavailable Unavailable CHANG, Isaiah SHAW MD Unavailable Unavailable CHANG, Isaiah SHAW MD Unavailable Unavailable CHANG, Isaiah SHAW MD Unavailable Unavailable CHANG, Isaiah SHAW MD Unavailable Unavailable CHANG, Isaiah SHAW MD Unavailable Unavailable CHANG, Isaiah SHAW MD Unavailable Unavailable CHANG, Isaiah SHAW MD Unavailable Unavailable CHANG, Isaiah SHAW MD Unavailable Unavailable CHANG, Isaiah SHAW MD Unavailable Unavailable CHANG, Isaiah SHAW MD Unavailable Unavailable CHANG, Isaiah SHAW MD Unavailable Unavailable CHANG, Isaiah SHAW MD Unavailable Unavailable CHANG, Isaiah SHAW MD Unavailable Unavailable CHANG, Isaiah SHAW MD Unavailable Unavailable CHANG, Isaiah SHAW MD Unavailable Unavailable CHANG, Isaiah SHAW MD Unavailable Unavailable CHANG, Isaiah SHAW MD Unavailable Unavailable CHANG, Isaiah SHAW MD Unavailable Unavailable CHANG, L COLIN DAIGLE Unavailable Unavailable CHANG, L COLIN DAIGLE Unavailable Unavailable CHANG, L COLIN DAIGLE Unavailable Unavailable CHANG, L COLIN DAIGLE Unavailable Unavailable CHANG, L COLIN DAIGLE Unavailable Unavailable CHANG, L COLIN DAIGLE Unavailable Unavailable CHANG, L COLIN DAIGLE Unavailable Unavailable CHANG, L COLIN DAIGLE Unavailable Unavailable CHANG, L COLIN DAIGLE Unavailable Unavailable CHANG, L COLIN DAIGLE Unavailable Unavailable CHANG, L COLIN DAIGLE Unavailable Unavailable CHANG, L COLIN DAIGLE Unavailable Unavailable CHANG, L COLIN DAIGLE Unavailable Unavailable CHANG, L COLIN DAIGLE Unavailable Unavailable CHANG, L COLIN DAIGLE Unavailable Unavailable CHANG, L COLIN DAIGLE Unavailable Unavailable CHANG, L COLIN DAIGLE Unavailable Unavailable BETO, Pradeep BROUSSARD MD Unavailable Unavailable BETO, Pradeep BROUSSARD MD Unavailable Unavailable BETO, Pradeep BROUSSARD MD Unavailable Unavailable BETO, Pradeep BROUSSARD MD Unavailable Unavailable BETO, Pradeep BROUSSARD MD Unavailable Unavailable BETO, Pradeep BROUSSARD MD Unavailable Unavailable BETO, Pradeep BROUSSARD MD Unavailable Unavailable BETO, Pradeep BROUSSARD MD Unavailable Unavailable BETO, Pradeep BROUSSARD MD Unavailable Unavailable BETO, Pradeep BROUSSARD MD Unavailable Unavailable BETO, Pradeep BROUSSARD MD Unavailable Unavailable BETO, Pradeep BROUSSARD MD Unavailable Unavailable BETO, Pradeep BROUSSRAD MD Unavailable Unavailable BETO, Pradeep BROUSSARD MD Unavailable Unavailable BETO, Pradeep BROUSSARD MD Unavailable Unavailable BETO, Pradeep BROUSSARD MD Unavailable Unavailable BETO, Pradeep BROUSSARD MD Unavailable Unavailable BETO, Pradeep BROUSSARD MD Unavailable Unavailable BETO, Pradeep BROUSSARD MD Unavailable Unavailable BETO, Pradeep BROUSSARD MD Unavailable Unavailable BETO, Pradeep BROUSSARD MD Unavailable Unavailable BETO, Pradeep BROUSSARD MD Unavailable Unavailable BETOPradeep CERON MD Unavailable Unavailable BETO, Pradeep BROUSSARD MD Unavailable Unavailable EBTO, Pradeep BROUSSARD MD Unavailable Unavailable BETO, Pradeep BROUSSARD MD Unavailable Unavailable BETO, Pradeep BROUSSARD MD Unavailable Unavailable BETO, Pradeep BROUSSARD MD Unavailable Unavailable BETO, Pradeep BROUSSARD MD Unavailable Unavailable BETO, Pradeep BROUSSARD MD Unavailable Unavailable BETO, Pradeep BROUSSARD MD Unavailable Unavailable BETO, Pradeep BROUSSARD MD Unavailable Unavailable BETO, Pradeep BROUSSARD MD Unavailable Unavailable BETO, Pradeep BROUSSARD MD Unavailable Unavailable BETO, Pradeep BROUSSARD MD Unavailable Unavailable BETO, Pradeep BROUSSARD MD Unavailable Unavailable BETO, Pradeep BROUSSARD MD Unavailable Unavailable BETO, Pradeep BROUSSARD MD Unavailable Unavailable BETO, Pradeep BROUSSARD MD Unavailable Unavailable BETO, Pradeep BROUSSARD MD Unavailable Unavailable BETO, Pradeep BROUSSARD MD Unavailable Unavailable BETO, Pradeep BROUSSARD MD Unavailable Unavailable BETO, Pradeep BROUSSARD MD Unavailable Unavailable BETO, Pradeep BROUSSARD MD Unavailable Unavailable BETO, Pradeep BROUSSARD MD Unavailable Unavailable BETO, Pradeep BROUSSARD MD Unavailable Unavailable BETO, Pradeep BROUSSARD MD Unavailable Unavailable BETO, Pradeep BROUSSARD MD Unavailable Unavailable BETO, Pradeep BROUSSARD MD Unavailable Unavailable BETO, E BOBO DAIGLE Unavailable Unavailable BETO, Pradeep BROUSSARD MD Unavailable Unavailable BETO, E BOBO DAIGLE Unavailable Unavailable BETO, Pradeep BROUSSARD MD Unavailable Unavailable BETO, Pradeep BROUSSARD MD Unavailable Unavailable BETO, Pradeep BROUSSARD MD Unavailable Unavailable BETO, Pradeep BROUSSARD MD Unavailable Unavailable BETO, Pradeep BROUSSARD MD Unavailable Unavailable BETO, Pradeep BROUSSARD MD Unavailable Unavailable BETO, Pradeep BROUSSARD MD Unavailable Unavailable BETO, Pradeep BROUSSARD MD Unavailable Unavailable BETO, Pradeep BROUSSARD MD Unavailable Unavailable BETO, Pradeep BROUSSARD MD Unavailable Unavailable BETO, Pradeep BROUSSARD MD Unavailable Unavailable BETO, Pradeep BROUSSARD MD Unavailable Unavailable BETO, Pradeep BROUSSARD MD Unavailable Unavailable BETO, Pradeep BROUSSARD MD Unavailable Unavailable BETO, Pradeep BROUSSARD MD Unavailable Unavailable BETO, Pradeep BROUSSARD MD Unavailable Unavailable BETO, Pradeep BROUSSARD MD Unavailable Unavailable BETO, Pradeep BROUSSARD MD Unavailable Unavailable BETO, Pradeep BROUSSARD MD Unavailable Unavailable BETO, Pradeep BROUSSARD MD Unavailable Unavailable BETO, Pradeep BROUSSARD MD Unavailable Unavailable BETO, Pradeep BROUSSARD MD Unavailable Unavailable BETO, Pradeep BROUSSARD MD Unavailable Unavailable BETO, Pradeep BROUSSARD MD Unavailable Unavailable BETO, Pradeep BROUSSARD MD Unavailable Unavailable BETO, Pradeep BROUSSARD MD Unavailable Unavailable BETO, Pradeep BROUSSARD MD Unavailable Unavailable BETO, Pradeep BROUSSARD MD Unavailable Unavailable BETO, Pradeep BROUSSARD MD Unavailable Unavailable BETO, Pradeep BROUSSARD MD Unavailable Unavailable BETO, Pradeep BROUSSARD MD Unavailable Unavailable BETO, Pradeep BROUSSARD MD Unavailable Unavailable BETO, Pradeep BROUSSARD MD Unavailable Unavailable BETO, Pradeep BROUSSARD MD Unavailable Unavailable BETO, Pradeep BROUSSARD MD Unavailable Unavailable BETO, Pradeep BROUSSARD MD Unavailable Unavailable BETO, Pradeep BROUSSARD MD Unavailable Unavailable BETO, Pradeep BROUSSARD MD Unavailable Unavailable BETO, Pradeep BROUSSARD MD Unavailable Unavailable BETO, Pradeep BROUSSARD MD Unavailable Unavailable BETO, Pradeep BROUSSARD MD Unavailable Unavailable BETO, Pradeep BROUSSARD MD Unavailable Unavailable BETO, Pradeep BROUSSARD MD Unavailable Unavailable BETO, Pradeep BROUSSARD MD Unavailable Unavailable BETO, Pradeep BROUSSARD MD Unavailable Unavailable BETO, Pradeep BROUSSARD MD Unavailable Unavailable Grace, Fatou DO Unavailable Unavailable Grace, Fatou DO Unavailable Unavailable Grace, Fatou DO Unavailable Unavailable Grace, Fatou DO Unavailable Unavailable Grace, Fatou DO Unavailable Unavailable Grace, Fatou DO Unavailable Unavailable Grace, Fatou DO Unavailable Unavailable Grace, Fatou DO Unavailable Unavailable Grace, Fatou DO Unavailable Unavailable Grace, Fatou DO Unavailable Unavailable Grace, Fatou DO Unavailable Unavailable Grace, Fatou DO Unavailable Unavailable Grace, Fatou DO Unavailable Unavailable Grace, Fatou DO Unavailable Unavailable Grace, Fatou DO Unavailable Unavailable Grace, Fatou DO Unavailable Unavailable Grace, Fatou DO Unavailable Unavailable Grace, Fatou DO Unavailable Unavailable Grace, Fatou DO Unavailable Unavailable Grace, Fatou DO Unavailable Unavailable Grace, Fatou DO Unavailable Unavailable Grace, Fatou DO Unavailable Unavailable Grace, Fatou DO Unavailable Unavailable Grace, Fatou DO Unavailable Unavailable Grace, Fatou DO Unavailable Unavailable Grace, Fatou DO Unavailable Unavailable Grace, Fatou DO Unavailable Unavailable Grace, Fatou DO Unavailable Unavailable Grace, Fatou DO Unavailable Unavailable Grace, Fatou DO Unavailable Unavailable Grace, Fatou DO Unavailable Unavailable Grace, Fatou DO Unavailable Unavailable Grace, Fatou DO Unavailable Unavailable Grace, Fatou DO Unavailable Unavailable Grace, Fatou DO Unavailable Unavailable Grace, Fatou DO Unavailable Unavailable Grace, Fatou DO Unavailable Unavailable Grace, Fatou DO Unavailable Unavailable Grace, Fatuo DO Unavailable Unavailable Grace, Fatou DO Unavailable Unavailable Grace, Fatou DO Unavailable Unavailable Grace, Fatou DO Unavailable Unavailable Grace, Fatou DO Unavailable Unavailable Grace, Fatou DO Unavailable Unavailable Grace, Fatou DO Unavailable Unavailable Grace, Fatou DO Unavailable Unavailable Grace, Fatou DO Unavailable Unavailable Grace, Fatou DO Unavailable Unavailable Grace, Fatou DO Unavailable Unavailable Grace, Fatou DO Unavailable Unavailable Grace, Fatou DO Unavailable Unavailable Grace, Fatou DO Unavailable Unavailable Grace, Fatou DO Unavailable Unavailable Grace, Fatou DO Unavailable Unavailable Grace, Fatou DO Unavailable Unavailable Grace, Fatou DO Unavailable Unavailable Grace, Fatou DO Unavailable Unavailable Grace, Fatou DO Unavailable Unavailable Grace, Fatou DO Unavailable Unavailable Grace, Fatou DO Unavailable Unavailable Grace, Fatou DO Unavailable Unavailable Grace, Fatou DO Unavailable Unavailable Grace, Fatou DO Unavailable Unavailable Grace, Fatou DO Unavailable Unavailable Grace, Fatou DO Unavailable Unavailable Grace, Fatou DO Unavailable Unavailable Grace, Fatou DO Unavailable Unavailable Grace, Fatou DO Unavailable Unavailable Grace, Fatou DO Unavailable Unavailable Grace, Fatou DO Unavailable Unavailable Grace, Fatou DO Unavailable Unavailable Grace, Fatou DO Unavailable Unavailable Grace, Fatou DO Unavailable Unavailable Grace, Fatou DO Unavailable Unavailable DEY, L ARPITA PA Unavailable Unavailable DEY, L ARPITA PA Unavailable Unavailable DEY, L ARPITA PA Unavailable Unavailable DEY, L ARPITA PA Unavailable Unavailable DEY, L ARPITA PA Unavailable Unavailable DEY, L ARPITA PA Unavailable Unavailable DEY, L ARPITA PA Unavailable Unavailable DEY, L ARPITA PA Unavailable Unavailable DEY, L ARPITA PA Unavailable Unavailable DEY, L ARPITA PA Unavailable Unavailable DEY, L ARPITA PA Unavailable Unavailable DEY, L ARPITA PA Unavailable Unavailable DEY, L ARPITA PA Unavailable Unavailable DEY, L ARPITA PA Unavailable Unavailable DEY, L ARPITA PA Unavailable Unavailable DEY, L ARPITA PA Unavailable Unavailable DEY, L ARPITA PA Unavailable Unavailable DEY, L ARPITA PA Unavailable Unavailable DEY, L ARPITA PA Unavailable Unavailable DEY, L ARPITA PA Unavailable Unavailable DEY, L ARPITA PA Unavailable Unavailable DEY, L ARPITA PA Unavailable Unavailable DEY, L ARPITA PA Unavailable Unavailable DEY, L ARPITA PA Unavailable Unavailable DEY, L ARPITA PA Unavailable Unavailable DEY, L ARPITA PA Unavailable Unavailable DEY, L ARPITA PA Unavailable Unavailable DEY, L ARPITA PA Unavailable Unavailable DEY, L ARPITA PA Unavailable Unavailable DEY, L ARPITA PA Unavailable Unavailable DEY, L ARPITA PA Unavailable Unavailable DEY, L ARPITA PA Unavailable Unavailable DEY, L ARPITA PA Unavailable Unavailable DEY, L ARPITA PA Unavailable Unavailable DEY, L ARPITA PA Unavailable Unavailable Isaiah DEY PA Unavailable Unavailable Isaiah DEY PA Unavailable Unavailable ESTRELLITA, L ARPITA PA Unavailable Unavailable DEY, L ARPITA PA Unavailable Unavailable Grace, Fatou DO Unavailable Unavailable Grace, Fatou DO Unavailable Unavailable Grace, Fatou DO Unavailable Unavailable Grace, Fatou DO Unavailable Unavailable Grace, Fatou DO Unavailable Unavailable Grace, Fatou DO Unavailable Unavailable Grace, Fatou DO Unavailable Unavailable Grace, Fatou DO Unavailable Unavailable Grace, Fatou DO Unavailable Unavailable Grace, Fatou DO Unavailable Unavailable Grace, Fatou DO Unavailable Unavailable Grace, Fatou DO Unavailable Unavailable Grace, Fatou DO Unavailable Unavailable Grace, Fatou DO Unavailable Unavailable Grace, Fatou DO Unavailable Unavailable Grace, Fatou DO Unavailable Unavailable Grace, Fatou DO Unavailable Unavailable Grace, Fatou DO Unavailable Unavailable Grace, Fatou DO Unavailable Unavailable Grace, Fatou DO Unavailable Unavailable Grace, Fatou DO Unavailable Unavailable Grace, Fatou DO Unavailable Unavailable Grace, Fatou DO Unavailable Unavailable Grace, Fatou DO Unavailable Unavailable Grace, Fatou DO Unavailable Unavailable Grace, Fatou DO Unavailable Unavailable Grace, Fatou DO Unavailable Unavailable Grace, Fatou DO Unavailable Unavailable Grace, Fatou DO Unavailable Unavailable Grace, Fatou DO Unavailable Unavailable Grace, Fatou DO Unavailable Unavailable Grace, Fatou DO Unavailable Unavailable Grace, Fatou DO Unavailable Unavailable Grace, Fatou DO Unavailable Unavailable Grace, Fatou DO Unavailable Unavailable Grace, Fatou DO Unavailable Unavailable Grace, Fatou DO Unavailable Unavailable Grace, Fatou DO Unavailable Unavailable Grace, Fatou DO Unavailable Unavailable Grace, Fatou DO Unavailable Unavailable Grace, Fatou DO Unavailable Unavailable Grace, Fatou DO Unavailable Unavailable Grace, Fatou DO Unavailable Unavailable Grace, Fatou DO Unavailable Unavailable Grace, Fatou DO Unavailable Unavailable Grace, Fatou DO Unavailable Unavailable Grace, Fatou DO Unavailable Unavailable Grace, Fatou DO Unavailable Unavailable Grace, Fatou DO Unavailable Unavailable Grace, Fatou DO Unavailable Unavailable Grace, Fatou DO Unavailable Unavailable Grace, Fatou DO Unavailable Unavailable Grace, Fatou DO Unavailable Unavailable Grace, Fatou DO Unavailable Unavailable Grace, Fatou DO Unavailable Unavailable Grace, Fatou DO Unavailable Unavailable Grace, Fatou DO Unavailable Unavailable Grace, Fatou DO Unavailable Unavailable Grace, Fatou DO Unavailable Unavailable Grace, Fatou DO Unavailable Unavailable Grace, Fatou DO Unavailable Unavailable Grace, Fatou DO Unavailable Unavailable Grace, Fatou DO Unavailable Unavailable Grace, Fatou DO Unavailable Unavailable Grace, Fatou DO Unavailable Unavailable Grace, Fatou DO Unavailable Unavailable Grace, Fatou DO Unavailable Unavailable Grace, Fatou DO Unavailable Unavailable Grace, Fatou DO Unavailable Unavailable Grace, Fatou DO Unavailable Unavailable Grace, Fatou DO Unavailable Unavailable Grace, Fatou DO Unavailable Unavailable Grace, Fatou DO Unavailable Unavailable Grace, Fatou DO Unavailable Unavailable Re-disclosure Warning The records that you are about to access may contain information from federally-assisted alcohol or drug abuse programs. If such information is present, then the following federally mandated warning applies: This information has been disclosed to you from records protected by federal confidentiality rules (42 CFR part 2). The federal rules prohibit you from making any further disclosure of this information unless further disclosure is expressly permitted by the written consent of the person to whom it pertains or as otherwise permitted by 42 CFR part 2. A general authorization for the release of medical or other information is NOT sufficient for this purpose. The Federal rules restrict any use of the information to criminally investigate or prosecute any alcohol or drug abuse patient.The records that you are about to access may contain highly sensitive health information, the redisclosure of which is protected by Article 27-F of the [facility] Public Health law. If you continue you may have access to information: Regarding HIV / AIDS; Provided by facilities licensed or operated by the [facility] Office of Mental Health; or Provided by the [facility] Office for People With Developmental Disabilities. If such information is present, then the following [facility] mandated warning applies: This information has been disclosed to you from confidential records which are protected by state law. State law prohibits you from making any further disclosure of this information without the specific written consent of the person to whom it pertains, or as otherwise permitted by law. Any unauthorized further disclosure in violation of state law may result in a fine or retirement sentence or both. A general authorization for the release of medical or other information is NOT sufficient authorization for further disc losure. Family History Family Member Name Family Member Gender Family Member Status Date o f Status Description Data Source(s) Unknown Unknown Problem [facility] Encounters Encounter Providers Location Date Indications Data Source(s ) Outpatient Attender: Fatou Delgado 09/07 09:20:00 AM EDT [facility] ([facility] ) Outpatient Attender: Fatou Delgado 07/08 09:40:00 AM EDT [facility] ([facility] ) Outpatient Attender: Fatou Delgado 04/22 01:45:00 PM EST [facility] ([facility] ) Outpatient Attender: ARPITA DEY PAReferrer: Fatou Burk 04/18/2020 02:19:26 PM EST [facility] Recurring Patient Attender: BOBO PÉREZ MDReferrer: Fatou Edwards DO 04/18/2020 09:34:00 AM EST [facility] Outpatient Attender: Fatou Delgado 04/07 01:15:00 PM EST [facility] ([facility] ) Outpatient Attender: COLIN CHANG MD [facility] [employer] quality [employer] 07:45:00 AM EST [facility] ([facility]) Outpatient [address] [facility] [id number] 03/31/2020 12:00:00 AM EST eCW1 ([facility]) [facility] Dermatology [address] [place] [id number] 03/31/2020 12:00:00 AM EST eCW1 ([facility]) Recurring Patient Attender: BOBO PÉREZ MDReferrer: Fatou Edwards DO 03/28/2020 09:48:24 AM EST [facility] Recurring Patient Attender: BOBO PÉREZ MDReferrer: Fatou Edwards DO 03/23/2020 01:27:48 PM EST [facility] Recurring Patient Attender: BOBO PÉREZ MDReferrer: Fatou Edwards DO 03/23/2020 01:15:33 PM EST [facility] Outpatient Attender: COLIN [facility] [employer]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 Attender: Kieran Astudillo MD [place] - [facility] - Main Office 03/08/2020 12:00:00 AM EST [facility] ([facility]) Outpatient Attender: Fatou Delgado 02/25 12:30:00 PM EST [facility] ([facility] ) Outpatient Attender: Fatou Delgado 01/25 12:00:00 PM EST [facility] ([facility] ) Outpatient [address] [place] [id number] 01/11/2020 12:00:00 AM EDT eCW1 ([facility]) Outpatient Attender: Fatou Delgado 12/27 09:00:00 AM EDT [facility] ([facility] ) Outpatient Attender: Fatou Delgado 11/23 09:40:00 AM EDT [facility] ([facility] ) Immunizations Vaccine Date Status Description Data Source(s) COVID-19 VACCINE Moderna 07/12/2020 12:00:00 AM EDT completed [facility] Vaccine Series Complete: YESThis Data wa s Submitted to [facility]. COVID-19 VACCINE Moderna 06/10/2020 12:00:00 AM EDT completed [facility] Vaccine Series Complete: NOThis Data was Submitted to [facility]. Influenza, injectable, MDCK, preservative free, jaylan valent 12/28/2019 09:57:00 AM EDT completed [facility] ([facility]) Medications Medication Brand Name Start Date Product Form Dose Route Admi nistrative Instructions Pharmacy Instructions Status Indications Reaction Description Data Source(s) 20 mg 11/11/2020 12:00:00 AM EDT tablet 3 TAKE ONE TABLET BY MOUTH EVERY DAY TAKE ONE TABLET BY MOUTH EVERY DAY SOLD: 11/11/2020 [facility] Cephalexin 500 MG Oral Capsule CEPHALEXIN 11/11/2020 12:00:00 AM EDT capsule 28 TAKE ONE CAPSULE BY MOUTH FOUR TIMES A DAY TAKE ONE CA PSULE BY MOUTH FOUR TIMES A DAY SOLD: 11/11/2020 [facility] 10 mg 09/22/2020 12:00:00 AM EDT tablet 30 TAKE ONE TABLET BY MOUTH AT BEDTIME TAKE ONE TABLET BY MOUTH AT BEDTIME SOLD: 10/24/2020 [facility] 10 mg 09/22/2020 12:00:00 AM EDT tablet 30 TAKE ONE TABLET BY MOUTH AT BEDTIME TAKE ONE TABLET BY MOUTH AT BEDTIME SOLD: 09/30/2020 [facility] 10 mg 09/22/2020 12:00:00 AM EDT tablet 30 TAKE ONE TABLET BY MOUTH AT BEDTIME TAKE ONE TABLET BY MOUTH AT BEDTIME SOLD: 12/02/2020 [facility] rivaroxaban 10 MG Oral Tablet [Xarelto] Xarelto 09/07/2020 12:00:0 0 AM EDT ORAL active [facility] ([facility]) montelukast 10 MG Oral Tablet MONTELUKAST SODIUM 09/05/2020 12:0 0:00 AM EDT tablet 30 TAKE ONE TABLET BY MOUTH AT BEDT ABIDA TAKE ONE TABLET BY MOUTH AT BEDTIME SOLD: 09/07/2020 [facility] 60 mg 09/05/2020 12:00:00 AM EDT capsule,delayed release (DR/EC) 60 TAKE ONE CAPSULE BY MOUTH TWICE A DAY TAKE ONE CAPSULE BY MOUTH TWICE A DAY SOLD: 09/07/2020 [facility] 60 mg 09/05/2020 12:00:00 AM EDT capsule,delayed release (DR/EC) 60 TAKE ONE CAPSULE BY MOUTH TWICE A DAY TAKE ONE CAPSULE BY MOUTH TWICE A DAY SOLD: 12/02/2020 [facility] montelukast 10 MG Oral Tablet MONTELUKAST SODIUM 09/05/2020 12:0 0:00 AM EDT tablet 30 TAKE ONE TABLET BY MOUTH AT BEDT ABIDA TAKE ONE TABLET BY MOUTH AT BEDTIME SOLD: 12/02/2020 [facility] 60 mg 09/05/2020 12:00:00 AM EDT capsule,delayed release (DR/EC) 60 TAKE ONE CAPSULE BY MOUTH TWICE A DAY TAKE ONE CAPSULE BY MOUTH TWICE A DAY SOLD: 10/24/2020 [facility] montelukast 10 MG Oral Tablet MONTELUKAST SODIUM 09/05/2020 12:0 0:00 AM EDT tablet 30 TAKE ONE TABLET BY MOUTH AT BEDT ABIDA TAKE ONE TABLET BY MOUTH AT BEDTIME SOLD: 10/24/2020 [facility] gabapentin 100 MG Oral Capsule Gabapentin 07/08/2020 12:00:00 AM EDT active [facility] ([facility]) 300 mg 06/18/2020 12:00:00 AM EDT capsule 90 TAKE ONE CAPSULE BY MOUTH EVERY MORNING AND THEN TAKE TWO CAPSULES BY MOUTH EVERY EVENING TAKE ONE CAPSULE BY MOUTH EVERY MORNING AND THEN TAKE TWO CAPSULES BY MOUTH EVERY EVENING SOLD: 09/01/2020 [facility] 300 mg 06/18/2020 12:00:00 AM EDT capsule 90 TAKE ONE CAPSULE BY MOUTH EVERY MORNING AND THEN TAKE TWO CAPSULES BY MOUTH EVERY EVENING TAKE ONE CAPSULE BY MOUTH EVERY MORNING AND THEN TAKE TWO CAPSULES BY MOUTH EVERY EVENING SOLD: 10/24/2020 [facility] 300 mg 06/18/2020 12:00:00 AM EDT capsule 90 TAKE ONE CAPSULE BY MOUTH EVERY MORNING AND THEN TAKE TWO CAPSULES BY MOUTH EVERY EVENING TAKE ONE CAPSULE BY MOUTH EVERY MORNING AND THEN TAKE TWO CAPSULES BY MOUTH EVERY EVENING SOLD: 06/21/2020 [facility] 300 mg 06/18/2020 12:00:00 AM EDT capsule 90 TAKE ONE CAPSULE BY MOUTH EVERY MORNING AND THEN TAKE TWO CAPSULES BY MOUTH EVERY EVENING TAKE ONE CAPSULE BY MOUTH EVERY MORNING AND THEN TAKE TWO CAPSULES BY MOUTH EVERY EVENING SOLD: 12/02/2020 [facility] 300 mg 06/18/2020 12:00:00 AM EDT capsule 90 TAKE ONE CAPSULE BY MOUTH EVERY MORNING AND THEN TAKE TWO CAPSULES BY MOUTH EVERY EVENING TAKE ONE CAPSULE BY MOUTH EVERY MORNING AND THEN TAKE TWO CAPSULES BY MOUTH EVERY EVENING SOLD: 07/30/2020 [facility] 150 mg 06/15/2020 12:00:00 AM EDT tablet 30 TAKE ONE TABLET BY MOUTH EVERY DAY TAKE ONE TABLET BY MOUTH EVERY DAY SOLD: 10/24/2020 [facility] 150 mg 06/15/2020 12:00:00 AM EDT tablet 30 TAKE ONE TABLET BY MOUTH EVERY DAY TAKE ONE TABLET BY MOUTH EVERY DAY SOLD: 07/30/2020 [facility] 150 mg 06/15/2020 12:00:00 AM EDT tablet 30 TAKE ONE TABLET BY MOUTH EVERY DAY TAKE ONE TABLET BY MOUTH EVERY DAY SOLD: 12/02/2020 [facility] 150 mg 06/15/2020 12:00:00 AM EDT tablet 30 TAKE ONE TABLET BY MOUTH EVERY DAY TAKE ONE TABLET BY MOUTH EVERY DAY SOLD: 09/01/2020 [facility] 150 mg 06/15/2020 12:00:00 AM EDT tablet 30 TAKE ONE TABLET BY MOUTH EVERY DAY TAKE ONE TABLET BY MOUTH EVERY DAY SOLD: 06/21/2020 [facility] 60 mg 05/10/2020 12:00:00 AM EST capsule,delayed release (DR/EC) 60 TAKE ONE CAPSULE BY MOUTH TWICE A DAY TAKE ONE CAPSULE BY MOUTH TWICE A DAY SOLD: 06/21/2020 [facility] 60 mg 05/10/2020 12:00:00 AM EST capsule,delayed release (DR/EC) 60 TAKE ONE CAPSULE BY MOUTH TWICE A DAY TAKE ONE CAPSULE BY MOUTH TWICE A DAY SOLD: 05/14/2020 [facility] 60 mg 05/10/2020 12:00:00 AM EST capsule,delayed release (DR/EC) 60 TAKE ONE CAPSULE BY MOUTH TWICE A DAY TAKE ONE CAPSULE BY MOUTH TWICE A DAY SOLD: 07/30/2020 [facility] 150 mcg 04/25/2020 12:00:00 AM EST tablet 30 TAKE ONE TABLET BY MOUTH EVERY DAY TAKE ONE TABLET BY MOUTH EVERY DAY SOLD: 07/30/2020 [facility] 150 mcg 04/25/2020 12:00:00 AM EST tablet 30 TAKE ONE TABLET BY MOUTH EVERY DAY TAKE ONE TABLET BY MOUTH EVERY DAY SOLD: 12/02/2020 [facility] 150 mcg 04/25/2020 12:00:00 AM EST tablet 30 TAKE ONE TABLET BY MOUTH EVERY DAY TAKE ONE TABLET BY MOUTH EVERY DAY SOLD: 06/21/2020 [facility] 150 mcg 04/25/2020 12:00:00 AM EST tablet 30 TAKE ONE TABLET BY MOUTH EVERY DAY TAKE ONE TABLET BY MOUTH EVERY DAY SOLD: 05/08/2020 [facility] 150 mcg 04/25/2020 12:00:00 AM EST tablet 30 TAKE ONE TABLET BY MOUTH EVERY DAY TAKE ONE TABLET BY MOUTH EVERY DAY SOLD: 10/24/2020 [facility] 150 mcg 04/25/2020 12:00:00 AM EST tablet 30 TAKE ONE TABLET BY MOUTH EVERY DAY TAKE ONE TABLET BY MOUTH EVERY DAY SOLD: 09/01/2020 [facility] 1 mg 04/23/2020 12:00:00 AM EST tablet 60 TAKE ONE TABLET BY MOUTH EVERY MORNING AND 1 AT BEDTIME TAKE ONE TABLET BY MOUTH EVERY MORNING A ND 1 AT BEDTIME SOLD: 07/30/2020 [facility] 1 mg 04/23/2020 12:00:00 AM EST tablet 60 TAKE ONE TABLET BY MOUTH EVERY MORNING AND 1 AT BEDTIME TAKE ONE TABLET BY MOUTH EVERY MORNING A ND 1 AT BEDTIME SOLD: 12/02/2020 [facility] 1 mg 04/23/2020 12:00:00 AM EST tablet 60 TAKE ONE TABLET BY MOUTH EVERY MORNING AND 1 AT BEDTIME TAKE ONE TABLET BY MOUTH EVERY MORNING A ND 1 AT BEDTIME SOLD: 10/24/2020 [facility] 1 mg 04/23/2020 12:00:00 AM EST tablet 60 TAKE ONE TABLET BY MOUTH EVERY MORNING AND 1 AT BEDTIME TAKE ONE TABLET BY MOUTH EVERY MORNING A ND 1 AT BEDTIME SOLD: 04/24/2020 [facility] 1 mg 04/23/2020 12:00:00 AM EST tablet 60 TAKE ONE TABLET BY MOUTH EVERY MORNING AND 1 AT BEDTIME TAKE ONE TABLET BY MOUTH EVERY MORNING A ND 1 AT BEDTIME SOLD: 06/21/2020 [facility] 1 mg 04/23/2020 12:00:00 AM EST tablet 60 TAKE ONE TABLET BY MOUTH EVERY MORNING AND 1 AT BEDTIME TAKE ONE TABLET BY MOUTH EVERY MORNING A ND 1 AT BEDTIME SOLD: 09/01/2020 [facility] Levothyroxine Sodium 0.15 MG Oral Tablet Levothyroxine Sodiu m 04/22/2020 12:00:00 AM EST ORAL active M [facility]ANTA ([facility]) 15 mg 04/08/2020 12:00:00 AM EST tablet 30 TAKE ONE TABLET BY MOUTH EVERY DAY WITH FOOD TAKE ONE TABLET BY MOUTH EVERY DAY WITH FOOD SOLD: 06/21/2020 [facility] 15 mg 04/08/2020 12:00:00 AM EST tablet 30 TAKE ONE TABLET BY MOUTH EVERY DAY WITH FOOD TAKE ONE TABLET BY MOUTH EVERY DAY WITH FOOD SOLD: 05/14/2020 [facility] 15 mg 04/08/2020 12:00:00 AM EST tablet 30 TAKE ONE TABLET BY MOUTH EVERY DAY WITH FOOD TAKE ONE TABLET BY MOUTH EVERY DAY WITH FOOD SOLD: 07/30/2020 [facility] 15 mg 04/08/2020 12:00:00 AM EST tablet 30 TAKE ONE TABLET BY MOUTH EVERY DAY WITH FOOD TAKE ONE TABLET BY MOUTH EVERY DAY WITH FOOD SOLD: 04/11/2020 [facility] rivaroxaban 15 MG Oral Tablet [Xarelto] Xarelto 04/07/2020 12:00:0 0 AM EST ORAL completed [facility] ([facility]) Aspirin 81 MG Chewable Tablet Aspirin 81 Low Dose 04/07/2020 12:00: 00 AM EST ORAL active [facility] ([facility]) 10 mg 02/19/2020 12:00:00 AM EST tablet 30 TAKE ONE TABLET BY MOUTH AT BEDTIME TAKE ONE TABLET BY MOUTH AT BEDTIME SOLD: 02/26/2020 [facility] 10 mg 02/19/2020 12:00:00 AM EST tablet 30 TAKE ONE TABLET BY MOUTH AT BEDTIME TAKE ONE TABLET BY MOUTH AT BEDTIME SOLD: 06/21/2020 [facility] 10 mg 02/19/2020 12:00:00 AM EST tablet 30 TAKE ONE TABLET BY MOUTH AT BEDTIME TAKE ONE TABLET BY MOUTH AT BEDTIME SOLD: 09/01/2020 [facility] 10 mg 02/19/2020 12:00:00 AM EST tablet 30 TAKE ONE TABLET BY MOUTH AT BEDTIME TAKE ONE TABLET BY MOUTH AT BEDTIME SOLD: 05/14/2020 [facility] 10 mg 02/19/2020 12:00:00 AM EST tablet 30 TAKE ONE TABLET BY MOUTH AT BEDTIME TAKE ONE TABLET BY MOUTH AT BEDTIME SOLD: 07/30/2020 [facility] 10 mg 02/19/2020 12:00:00 AM EST tablet 30 TAKE ONE TABLET BY MOUTH AT BEDTIME TAKE ONE TABLET BY MOUTH AT BEDTIME SOLD: 04/07/2020 [facility] 60 mg 01/28/2020 12:00:00 AM EST capsule,delayed release (DR/EC) 60 TAKE ONE CAPSULE BY MOUTH TWICE A DAY TAKE ONE CAPSULE BY MOUTH TWICE A DAY SOLD: 01/29/2020 [facility] 60 mg 01/28/2020 12:00:00 AM EST capsule,delayed release (DR/EC) 60 TAKE ONE CAPSULE BY MOUTH TWICE A DAY TAKE ONE CAPSULE BY MOUTH TWICE A DAY SOLD: 04/07/2020 [facility] montelukast 10 MG Oral Tablet MONTELUKAST SODIUM 01/26/2020 12:0 0:00 AM EST tablet 30 TAKE ONE TABLET BY MOUTH AT BEDT ABIDA TAKE ONE TABLET BY MOUTH AT BEDTIME SOLD: 06/21/2020 [facility] montelukast 10 MG Oral Tablet MONTELUKAST SODIUM 01/26/2020 12:0 0:00 AM EST tablet 30 TAKE ONE TABLET BY MOUTH AT BEDT ABIDA TAKE ONE TABLET BY MOUTH AT BEDTIME SOLD: 05/14/2020 [facility] montelukast 10 MG Oral Tablet MONTELUKAST SODIUM 01/26/2020 12:0 0:00 AM EST tablet 30 TAKE ONE TABLET BY MOUTH AT BEDT ABIDA TAKE ONE TABLET BY MOUTH AT BEDTIME SOLD: 07/30/2020 [facility] montelukast 10 MG Oral Tablet MONTELUKAST SODIUM 01/26/2020 12:0 0:00 AM EST tablet 30 TAKE ONE TABLET BY MOUTH AT BEDT ABIDA TAKE ONE TABLET BY MOUTH AT BEDTIME SOLD: 01/29/2020 [facility] duloxetine 60 MG Delayed Release Oral Capsule Duloxetine HCL 01/26/2020 12:00:00 AM EST active [facility] ([facility] montelukast 10 MG Oral Tablet MONTELUKAST SODIUM 01/26/2020 12:0 0:00 AM EST tablet 30 TAKE ONE TABLET BY MOUTH AT BEDT ABIDA TAKE ONE TABLET BY MOUTH AT BEDTIME SOLD: 04/07/2020 [facility] 10 mg 01/26/2020 12:00:00 AM EST tablet 30 TAKE ONE TABLET BY MOUTH AT BEDTIME TAKE ONE TABLET BY MOUTH AT BEDTIME SOLD: 01/29/2020 [facility] 30 mg 12/29/2019 12:00:00 AM EDT capsule,delayed release (DR/EC) 60 TAKE ONE CAPSULE BY MOUTH EVERY DAY FOR 7 DAYS THEN TAKE ONE CAPSULE BY MOUTH TWICE A DAY TAKE ONE CAPSULE BY MOUTH EVERY DAY FOR 7 DAYS THEN TAKE ONE CAPSULE BY MOUTH TWICE A DAY SOLD: 01/05/2020 [facility] Immunization Adminstration,1 Vaccine/Toxoid 12/28/2019 12:00 :00 AM EDT completed [facility] ([facility]) Medication administered onsite duloxetine 30 MG Delayed Release Oral Capsule Duloxetine HCL 12/28/2019 12:00:00 AM EDT ORAL completed [facility] ([facility]) 137 mcg 11/25/2019 12:00:00 AM EDT tablet 30 TAKE ONE TABLET BY MOUTH EVERY DAY TAKE ONE TABLET BY MOUTH EVERY DAY SOLD: 12/01/2019 [facility] 137 mcg 11/25/2019 12:00:00 AM EDT tablet 30 TAKE ONE TABLET BY MOUTH EVERY DAY TAKE ONE TABLET BY MOUTH EVERY DAY SOLD: 04/07/2020 [facility] 137 mcg 11/25/2019 12:00:00 AM EDT tablet 30 TAKE ONE TABLET BY MOUTH EVERY DAY TAKE ONE TABLET BY MOUTH EVERY DAY SOLD: 02/26/2020 [facility] 137 mcg 11/25/2019 12:00:00 AM EDT tablet 30 TAKE ONE TABLET BY MOUTH EVERY DAY TAKE ONE TABLET BY MOUTH EVERY DAY SOLD: 01/11/2020 [facility] Levothyroxine Sodium 0.137 MG Oral Tablet Levothyroxine Sodi um 11/24/2019 12:00:00 AM EDT ORAL completed [facility] ([facility]) Amoxicillin 500 MG / Clavulanate 125 MG Oral Tablet [Augment in] Augmentin 06/15/2019 12:00:00 AM EDT ORAL completed [facility] ([facility]) Escitalopram 20 MG Oral Tablet ESCITALOPRAM OXALATE 06/15/2019 1 2:00:00 AM EDT tablet 30 TAKE ONE TABLET BY MOUTH AT BEDT ABIDA TAKE ONE TABLET BY MOUTH AT BEDTIME SOLD: 12/23/2019 [facility] Escitalopram 20 MG Oral Tablet ESCITALOPRAM OXALATE 06/15/2019 1 2:00:00 AM EDT tablet 30 TAKE ONE TABLET BY MOUTH AT BEDT ABIDA TAKE ONE TABLET BY MOUTH AT BEDTIME SOLD: 11/13/2019 [facility] 150 mg 06/15/2019 12:00:00 AM EDT tablet 30 TAKE ONE TABLET BY MOUTH EVERY DAY TAKE ONE TABLET BY MOUTH EVERY DAY SOLD: 04/07/2020 [facility] 125 mcg 06/15/2019 12:00:00 AM EDT tablet 30 TAKE ONE TABLET BY MOUTH EVERY DAY TAKE ONE TABLET BY MOUTH EVERY DAY SOLD: 11/13/2019 [facility] 1 mg 06/15/2019 12:00:00 AM EDT tablet 60 TAKE ONE TABLET BY MOUTH EVERY MORNING AND TAKE ONE TABLET BY MOUTH AT BEDTIME TAKE ONE TABLET BY MOUTH EVERY MORNING AND TAKE ONE TABLET BY MOUTH AT BEDTIME SOLD: 12/23/2019 [facility] 150 mg 06/15/2019 12:00:00 AM EDT tablet 30 TAKE ONE TABLET BY MOUTH EVERY DAY TAKE ONE TABLET BY MOUTH EVERY DAY SOLD: 11/13/2019 [facility] 10 mg 06/15/2019 12:00:00 AM EDT tablet 30 TAKE ONE TABLET BY MOUTH AT BEDTIME TAKE ONE TABLET BY MOUTH AT BEDTIME SOLD: 11/13/2019 [facility] montelukast 10 MG Oral Tablet MONTELUKAST SODIUM 06/15/2019 12:0 0:00 AM EDT tablet 30 TAKE ONE TABLET BY MOUTH AT BEDT ABIDA TAKE ONE TABLET BY MOUTH AT BEDTIME SOLD: 12/23/2019 [facility] 10 mg 06/15/2019 12:00:00 AM EDT tablet 30 TAKE ONE TABLET BY MOUTH AT BEDTIME TAKE ONE TABLET BY MOUTH AT BEDTIME SOLD: 12/23/2019 [facility] 1 mg 06/15/2019 12:00:00 AM EDT tablet 60 TAKE ONE TABLET BY MOUTH EVERY MORNING AND TAKE ONE TABLET BY MOUTH AT BEDTIME TAKE ONE TABLET BY MOUTH EVERY MORNING AND TAKE ONE TABLET BY MOUTH AT BEDTIME SOLD: 01/29/2020 [facility] 150 mg 06/15/2019 12:00:00 AM EDT tablet 30 TAKE ONE TABLET BY MOUTH EVERY DAY TAKE ONE TABLET BY MOUTH EVERY DAY SOLD: 05/14/2020 [facility] montelukast 10 MG Oral Tablet MONTELUKAST SODIUM 06/15/2019 12:0 0:00 AM EDT tablet 30 TAKE ONE TABLET BY MOUTH AT BEDT ABIDA TAKE ONE TABLET BY MOUTH AT BEDTIME SOLD: 11/13/2019 [facility] 150 mg 06/15/2019 12:00:00 AM EDT tablet 30 TAKE ONE TABLET BY MOUTH EVERY DAY TAKE ONE TABLET BY MOUTH EVERY DAY SOLD: 12/23/2019 [facility] 150 mg 06/15/2019 12:00:00 AM EDT tablet 30 TAKE ONE TABLET BY MOUTH EVERY DAY TAKE ONE TABLET BY MOUTH EVERY DAY SOLD: 01/29/2020 [facility] 1 mg 06/15/2019 12:00:00 AM EDT tablet 60 TAKE ONE TABLET BY MOUTH EVERY MORNING AND TAKE ONE TABLET BY MOUTH AT BEDTIME TAKE ONE TABLET BY MOUTH EVERY MORNING AND TAKE ONE TABLET BY MOUTH AT BEDTIME SOLD: 11/13/2019 [facility] 300 mg 05/14/2019 12:00:00 AM EST capsule 90 TAKE ONE CAPSULE BY MOUTH EVERY MORNING AND THEN TAKE TWO CAPSULES BY MOUTH EVERY EVENING TAKE ONE CAPSULE BY MOUTH EVERY MORNING AND THEN TAKE TWO CAPSULES BY MOUTH EVERY EVENING SOLD: 11/13/2019 [facility] 300 mg 05/14/2019 12:00:00 AM EST capsule 90 TAKE ONE CAPSULE BY MOUTH EVERY MORNING AND THEN TAKE TWO CAPSULES BY MOUTH EVERY EVENING TAKE ONE CAPSULE BY MOUTH EVERY MORNING AND THEN TAKE TWO CAPSULES BY MOUTH EVERY EVENING SOLD: 04/07/2020 [facility] 300 mg 05/14/2019 12:00:00 AM EST capsule 90 TAKE ONE CAPSULE BY MOUTH EVERY MORNING AND THEN TAKE TWO CAPSULES BY MOUTH EVERY EVENING TAKE ONE CAPSULE BY MOUTH EVERY MORNING AND THEN TAKE TWO CAPSULES BY MOUTH EVERY EVENING SOLD: 05/14/2020 [facility] 8 HR Acetaminophen 650 MG Extended Relea se Oral Tablet [Tylenol] Tylenol Arthritis Pain 650 mg tablet,extended release Take 2 tablets every 8 hours by oral route. Tylenol Arthritis Pain 650 mg tablet,ext ended release Take 2 tablets every 8 hours by oral route. 2 complete d 8 HR acetaminophen 650 MG Extended Release Oral Tablet [Tylenol] SE[facility]US ([facility]) chlorhexidine gluconate 40 MG/ML Medicat ed Liquid Soap [Hibiclens] Hibiclens 4 % topical liquid NEEDED Hibiclens 4 % topical liquid NEEDED completed chlorhexidine glucon ate 40 MG/ML Medicated Liquid Soap [Hibiclens] [facility] ([facility]) 200 ACTUAT Albuterol 0.09 MG/ACTUAT Dry Powder Inhaler [ProAir] ProAir RespiClick 90 mcg/actuation breath activated Inhale 2 puffs every 4 hours by inhalation route as needed. ProAir RespiClick 90 mcg/actuation breat h activated Inhale 2 puffs every 4 hours by inhalation route as needed. 2 puff(s) completed 200 ACTUAT albuterol 0.09 MG/ACT UAT Dry Powder Inhaler [ProAir] [facility] ([facility]) Insurance Providers Payer name Policy type / Coverage type Policy ID Covered libertarian ID Covered libertarian's relationship to foley Policy Foley Plan Information [facility] Healthcare Commercial [id number] Self [id number] [facility] [place] [id number] [facility] Commercial [id number] Self [id number] [place] [employer] Medigap Part B [id number] Self [id number] [place] [employer] Commercial [id number] Self BS [place] Tr[employer]/[place] Commercial [id number] Self [id number] BS [place] [employer] Commercial [id number] Self [id number] BS [place] [employer] Commercial [id number] Self [id number] [place] [employer] Commercial [id number] Self [id number] [place] [employer] Medigap Part B [id number] Self [id number] BS [place] Tr[employer]/[place] Commercial [id number] Self [id number] [place] [employer] Commercial [id number] Self BS [place] Trad/[place] Medigap Part B [id number] Self [id number] BS [place] [employer]/[place] Commercial [id number] Self [id number] [place] [employer] Commercial [id number] Self [id number] BS [place] Trad/[place] Medigap Part B [id number] Self [id number] Blue Cross Blue Shield P [id number] SELF [id number] BS [place] Trad/[place] Commercial [id number] Self [id number] Blue Cross Blue Shield P [id number] SELF [id number] [place] Tr[employer]/[place] Commercial [id number] Self [id number] BS [place] Trad/[place] Commercial [id number] Self [id number] BS [place] Trad/[place] Commercial [id number] Self [id number] BS [place] Trad/[place] Medigap Part B [id number] Self [id number] O BLUE [id number] SP [id number] MVP Medicaid Commercial [id number] Self [id number] MVP Medicaid F [id number] SELF [id number] MVP Medicaid F [id number] SELF [id number] [employer] BC[employer] P [id number] S [id number] SELF PAY UNAVAILABLE UNAVAILA BLE [employer] BCBS S UNAVAILABLE [id number] S UNAV AILABLE [facility] PHY [id number] SP [id number] MVP [id number] SP [id number] [facility] O [id number] S [id number] [facility] [id number] SP [id number] MEDICAID M [id number] S [id number] [facility] P [id number] S [id number] [facility] [id number] SP [id number] MEDICAID [id number] SP [id number] Medicaid Medigap Part B [id number] Self [id number] [facility] Medigap Part B [id number] Self [id number] [facility] Medigap Part B [id number] Self [id number] ANSI-Not a Secondary Insurance [id number] ANSI-Medicaid [id number] Medicaid Medigap Part B [id number] Self [id number] Medicaid Medigap Part B [id number] Self [id number] Medicaid Medigap Part B [id number] Self [id number] Medicaid Medicaid [id number] Self [id number] [employer] BCBS B [id number] S [id number] Medicaid Medicaid [id number] Self [id number] [place] [facility] Medigap Part B [id number] Self Umr Medigap Part B [id number] Self [place] 306/806 [id number] SP [id number] [place] 306/806 [id number] SP [id number] [place] PPO 302/307 [id number] SP [id number] [employer] BCBS B [id number] S [id number] [place] 090/590 [id number] SP [id number] [place] 090/590 [id number] SP [id number] [employer] BCBS P [id number] S [place] [id number] Problems, Conditions, and Diagnoses Code Display Name Description Problem Type Effective Dates Data Source(s) D22.71 [id number] Melanocytic nevi of right lower limb, inc luding hip Problem 03/31/2020 12:00:00 AM EST eCW1 ([facility]) D22.72 [id number] Melanocytic nevi of left lower l imb, including hip Problem 03/31/2020 12:00:00 AM EST eCW1 ([facility]) D18.01 [id number] [place] angioma Problem 03/31/2020 12:00:00 A M EST eCW1 ([facility]) D22.61 [id number] Melanocytic nevi of right upper limb, including shoulder Problem 03/31/2020 12:00:00 AM EST eCW1 ([facility]) D22.62 [id number] Melanocytic nevi of left upper l imb, including shoulder Problem 03/31/2020 12:00:00 AM EST eCW1 ([facility]) Surgeries/Procedures Procedure Description Date Indications Data Source(s) OFFICE OUTPATIENT VISIT 25 MINUTES 09/07/2020 12:00:00 AM EDT [facility] ([facility]) OFFICE OUTPATIENT VISIT 25 MINUTES 07/08/2020 12:00:00 AM EDT [facility] ([facility]) OFFICE OUTPATIENT VISIT 25 MINUTES 04/22/2020 12:00:00 AM EST [facility] ([facility]) OFFICE OUTPATIENT VISIT 25 MINUTES 04/07/2020 12:00:00 AM EST [facility] ([facility]) Pessary Fitting & Insertion Of Pessary/Intravaginal Support Rima 03/30/2020 12:00:00 AM EST [facility] ([facility]) Mammogram 01/15/2020 12:00:00 AM EDT M EDENT ([facility]) Results ID Date Data Source [id number] 11/10/2020 11:42:00 PM EDT MED[facility] ([facility]) Name Value Range Interpretation Code Description Data Fabiana rce(s) Supporting Document(s) Erythrocyte sedimentation rate by Westergren method 35 mm/hr 0-30 [facility] ([facility]) ID Date Data Source [id number] 11/10/2020 11:42:00 PM EDT [facility] ([facility]) Name Value Range Interpretation Code Description Data Fabiana rce(s) Supporting Document(s) White Blood Count 7.2 10 4.0-10.0 [facility] ([facility]) Red Blood Count 4.47 10 4.00-5.40 [facility] ([facility]) Hemoglobin 13.5 g/dL 12.0-15.5 [facility] Hematocrit 42.6 % 36.0-47.0 [facility] Mean Corpuscular Volume 95.3 fl 80.0-96.0 [facility] Mean Corpuscular Hemoglobin 30.2 pg 27.0-33.0 [facility] ([facility]) Mean Corpuscular HGB Conc 31.7 g/dL 32.0-36.5 [facility] Red Cell Distribution Width 13.1 % 11.5-14.5 [facility] ([facility]) Platelet Count, Automated 248 10 150-450 MED[facility] NT ([facility]) Neutrophils % 51.1 % 36.0-66.0 [facility] ([facility]) Lymph % 32.9 % 24.0-44.0 [facility] [place] % 11.7 % 2.0-8.0 [facility] ([facility]) Eos % 3.6 % 0.0-3.0 [facility] ([facility]) Immature Granulocyte % 0.3 % 0-3.0 [facility] ([facility]) Baso % 0.4 % 0.0-1.0 [facility] ([facility]) Neutrophils # 3.7 10 1.5-8.5 [facility] ([facility]) Nucleated Red Blood Cell % 0.0 % 0-0 MED ENT ([facility]) Lymph # 2.4 10 1.5-5.0 [facility] ([facility]) Knox # 0.8 10 0.0-0.8 [facility] ([facility]) Baso # 0.0 10 0.0-0.2 [facility] ([facility]) Eos # 0.3 10 0.0-0.5 [facility] ([facility]) ID Date Data Source [id number] 11/10/2020 11:42:00 PM EDT [facility] ([facility]) Name Value Range Interpretation Code Description Data Fabiana rce(s) Supporting Document(s) aPTT in Blood by Coagulation assay 29.4 s 25.9-37.0 [facility] ([facility]) ID Date Data Source [id number] 11/10/2020 11:42:00 PM EDT [facility] ([facility]) Name Value Range Interpretation Code Description Data Fabiana rce(s) Supporting Document(s) Prothrombin Time 13.1 s 12.7-14.5 [facility] ([facility]) Inr 0.95 [facility] ([facility]) THERAPUTIC HUMAN INR VALUES INDICATIONS NORMAL RANGES PROPHYLAXIS/TREATMENT OF: VENOUS THROMBOSIS 2.0-3.0 PULMONARY EMBOLISM 2.0-3.0 PREVENTION OF SYSTEMIC EMBOLISM FROM: TISSUE HEART VALVES 2.0-3.0 ACUTE MYOCARDIAL INFARCTION 2.0-3.0 VALVULAR HEART DISEASE 2.0-3.0 ATRIAL FIBRILLATION 2.0-3.0 MECHANICAL VALVES(HIGH RISK) 2.5-3.5 RECURRENT MYOCARDIAL INFARCTION 2.5-3.5 ID Date Data Source [id number] 11/10/2020 11:42:00 PM EDT [facility] ([facility]) Name Value Range Interpretation Code Description Data Fabiana rce(s) Supporting Document(s) Urate [Mass/volume] in Serum or Plasma 6.2 mg/dL 2.6-6.0 [facility] ([facility]) 0003] @---END MOBILAB COMMENT--- C reactive protein [Mass/volume] in Serum or Plasma by High sensitivity method 1.14 mg/dL 0.00-0.30 [email or web address] 0003] @---END MOBILAB COMMENT--- ID Date Data Source [id number] 11/10/2020 11:42:00 PM EDT [facility] ([facility]) Name Value Range Interpretation Code Description Data Fabiana rce(s) Supporting Document(s) Glucose, Fasting 95 mg/dL 70-100 [facility] ([facility]) Blood Urea Nitrogen 12 mg/dL 7-18 [facility] ([facility]) Glomerular Filtration Rate Laboratory [facility] <content>Units are mL/min/1.73 m2</content>
<content></content>
<content>Chronic Kidney Disease Staging per NKF:</content>
<content></content>
<content>Stage I & II GFR >=60 Normal to Mildly Decreased</content>
<content>Stage III GFR 30-59 Moderately Decreased</content>
<content>Stage IV GFR 15-29 Severely Decreased</content>
<content>Stage V GFR <15 Very Little GFR Left</content>
<content>ESRD GFR <15 on HAMMERER TAB</content>
<content></content> Creatinine For GFR 0.88 mg/dL 0.55-1.30 [facility] Sodium Level 143 meq/L 136-145 [facility] ([facility]) Potassium Serum 4.0 meq/L 3.5-5.1 [facility] ([facility]) Chloride Level 111 meq/L 98-107 [facility] ([facility]) Anion Gap 3 meq/L 8-16 [facility] ([facility]) Carbon Dioxide Level 29 meq/L 21-32 [facility] ([facility]) Calcium Level 8.8 mg/dL 8.8-10.2 [facility] ([facility]) ID Date Data Source [id number] 11/10/2020 11:42:00 PM EDT [facility] ([facility], [facility]) Name Value Range Interpretation Code Description Data Fabiana rce(s) Supporting Document(s) Erythrocyte sedimentation rate by 2H Westergren method 35 mm/hr 0-3 0 [facility] ([facility], [facility]) Not an Urgent Care Patient ID Date Data Source [id number] 11/10/2020 11:42:00 PM EDT [facility] ([facility], [facility]) Name Value Range Interpretation Code Description Data Fabiana rce(s) Supporting Document(s) White Blood Count 7.2 10 4.0-10.0 [facility] ([facility], [facility]) Not an Urgent Care Patient Red Blood Count 4.47 10 4.00-5.40 [facility] ([facility], [facility]) Not an Urgent Care Patient Hematocrit 42.6 % 36.0-47.0 [facility] Not an Urgent Care Patient Hemoglobin 13.5 g/dL 12.0-15.5 [facility] Not an Urgent Care Patient Mean Corpuscular Volume 95.3 fl 80.0-96.0 M EDENT ([facility], [facility]) Not an Urgent Care Patient Mean Corpuscular Hemoglobin 30.2 pg 27.0-33.0 [facility] ([facility], [facility]) Not an Urgent Care Patient Mean Corpuscular HGB Conc 31.7 g/dL 32.0-36.5 [facility] ([facility], [facility]) Not an Urgent Care Patient Red Cell Distribution Width 13.1 % 11.5-14.5 [facility] ([facility], [facility]) Not an Urgent Care Patient Neutrophils % 51.1 % 36.0-66.0 [facility] ([facility], [facility]) Not an Urgent Care Patient Platelet Count, Automated 248 10 150-450 [facility] ([facility], [facility]) Not an Urgent Care Patient Lymph % 32.9 % 24.0-44.0 [facility] ([facility], [facility]) Not an Urgent Care Patient Knox % 11.7 % 2.0-8.0 [facility] ([facility], [facility]) Not an Urgent Care Patient Eos % 3.6 % 0.0-3.0 [facility] ([facility], [facility]) Not an Urgent Care Patient Baso % 0.4 % 0.0-1.0 [facility] ([facility], [facility]) Not an Urgent Care Patient Immature Granulocyte % 0.3 % 0-3.0 [facility] ([facility]) Not an Urgent Care Patient Nucleated Red Blood Cell % 0.0 % 0-0 MED ENT ([facility], [facility]) Not an Urgent Care Patient Neutrophils # 3.7 10 1.5-8.5 [facility] ([facility], [facility]) Not an Urgent Care Patient Lymph # 2.4 10 1.5-5.0 [facility] ([facility], [facility]) Not an Urgent Care Patient Knox # 0.8 10 0.0-0.8 [facility] ([facility], [facility]) Not an Urgent Care Patient Baso # 0.0 10 0.0-0.2 [facility] ([facility], [facility]) Not an Urgent Care Patient Eos # 0.3 10 0.0-0.5 [facility] ([facility], [facility]) Not an Urgent Care Patient ID Date Data Source [id number] 11/10/2020 11:42:00 PM EDT [facility] ([facility]) Name Value Range Interpretation Code Description Data Fabiana rce(s) Supporting Document(s) aPTT in Platelet poor plasma by Coagulation assay 29.4 s 25.9-37. 0 [facility] ([facility]) Not an Urgent Care Patient ID Date Data Source [id number] 11/10/2020 11:42:00 PM EDT [facility] ([facility]) Name Value Range Interpretation Code Description Data Fabiana rce(s) Supporting Document(s) Prothrombin Time 13.1 s 12.7-14.5 [facility] ([facility]) Not an Urgent Care Patient Inr 0.95 [facility] ([facility]) Not an Urgent Care Patient ID Date Data Source [id number] 11/10/2020 11:42:00 PM EDT [facility] ([facility]) Name Value Range Interpretation Code Description Data Fabiana rce(s) Supporting Document(s) Urate [Mass/volume] in Serum or Plasma 6.2 mg/dL 2.6-6.0 [facility] ([facility]) Not an Urgent Care Patient C reactive protein [Mass/volume] in Serum or Plasma by High sensitivity method 1.14 mg/dL 0.00-0.30 [facility] Not [facility] Patient ID Date Data Source [id number] 11/10/2020 11:42:00 PM EDT [facility] ([facility]) Name Value Range Interpretation Code Description Data Fabiana rce(s) Supporting Document(s) Blood Urea Nitrogen 12 mg/dL 7-18 [facility] ([facility]) Not an Urgent Care Patient Glucose, Fasting 95 mg/dL 70-100 [facility] ([facility]) Not an Urgent Care Patient Creatinine For GFR 0.88 mg/dL 0.55-1.30 [facility] ([facility]) Not an Urgent Care Patient Glomerular Filtration Rate Laboratory test result [facility] ([facility]) Not an Urgent Care Patient Potassium Serum 4.0 meq/L 3.5-5.1 [facility] ([facility]) Not an Urgent Care Patient Sodium Level 143 meq/L 136-145 [facility] ([facility]) Not an Urgent Care Patient Carbon Dioxide Level 29 meq/L 21-32 [facility] ( [facility]) Not an Urgent Care Patient Chloride Level 111 meq/L 98-107 [facility] ([facility], [facility]) Not an Urgent Care Patient Calcium Level 8.8 mg/dL 8.8-10.2 [facility] ([facility], [facility]) Not an Urgent Care Patient Anion Gap 3 meq/L 8-16 [facility] ([facility], [facility]) Not an Urgent Care Patient ID Date Data Source [id number] 09/07/2020 10:14:00 AM EDT [facility] ([facility]) Name Value Range Interpretation Code Description Data Fabiana rce(s) Supporting Document(s) Thyrotropin [Units/volume] in Serum or Plasma by Detec tion limit <= 0.05 mIU/L 0.84 uIU/mL 0.36-3.74 [facility] ([facility] ) ID Date Data Source [id number] 09/07/2020 10:14:00 AM EDT [facility] ([facility]) Name Value Range Interpretation Code Description Data Fabiana rce(s) Supporting Document(s) Glucose [Mass/volume] in Serum or Plasma 116 mg/dL 74-99 [facility] ([facility]) 100-125 mg/dL PRE-DIABETES/FASTING >126 mg/dL DIABETES/FASTING Urea nitrogen [Mass/volume] in Serum or Plasma 14 mg/dL 7-18 [facility] ([facility]) Sodium [Moles/volume] in Serum or Plasma 140 meq/L 136-145 [facility] ([facility]) Creatinine 0.9 mg/dL 0.6-1.3 [facility] ([facility]) Chloride [Moles/volume] in Serum or Plasma 104 meq/L 98-107 [facility] ([facility]) Potassium [Moles/volume] in Serum or Plasma 4.2 meq/L 3.5-5.1 [facility] ([facility]) Alkaline phosphatase isoenzyme [Units/volume] in Serum or Pl asma 122 mg/dL 46-116 [facility] ([facility]) Carbon dioxide, total [Moles/volume] in Serum or Plasma 28 meq/L 21 -32 [facility] ([facility]) Calcium [Mass/volume] in Serum or Plasma 9.1 mg/dL 8.5-10.1 [facility] ([facility]) Total Bilirubin 0.4 mg/dL 0.2-1.0 [facility] ([facility]) Alanine aminotransferase [Enzymatic activity/volume] in Seru m or Plasma 23 U/L 12-78 [facility] ([facility]) Aspartate aminotransferase [Enzymatic activity/volume] in Serum or Plasma 19 U/L 15-37 [facility] ([facility] ) Albumin [Mass/volume] in Serum or Plasma 3.4 g/dL 3.4-5.0 [facility] ([facility]) Proteinase 3 Ab [Units/volume] in Serum 7.0 g/dL 6.4-8.2 [facility] ([facility]) A/G Ratio 0.94 CALC 1.00-1.90 [facility] Glomerular filtration rate/1.73 sq M pre dicted among non-blacks [Volume Rate/Area] in Serum or Plasma by Creatinine-based formula (MDRD) Laboratory test result [facility] ([facility] ) Glomerular filtration rate/1.73 sq M pre dicted among blacks [Volume Rate/Area] in Serum or Plasma by Creatinine-based formula (MDRD) Laboratory test result [facility] ([facility]) <content>CHRONIC KIDNEY DISEASE STAGING PER NKF</content>
<content></content>
<content>STAGE I & II GFR >= 60 NORMAL TO MILDLY DECREASED</content>
<content>STAGE III GFR 30-59 MODERATELY DECREASED</content>
<content>STAGE IV GFR 15-29 SEVERELY DECREASED</content>
<content>STAGE V GFR <15 VERY LITTLE GFR LEFT</content>
<content>ESRD GFR <15 ON HAMMERER TAB</content>
<content></content> ID Date Data Source [id number] 07/08/2020 10:30:00 AM EDT [facility] ([facility]) Name Value Range Interpretation Code Description Data Fabiana rce(s) Supporting Document(s) Thyrotropin [Units/volume] in Serum or Plasma by Detec tion limit <= 0.05 mIU/L 3.58 uIU/mL 0.36-3.74 [facility] ([facility] ) Thyroxine (T4) free [Mass/volume] in Serum or Plasma 1.04 ng/dL 0.76- 1.46 [facility] ([facility]) ID Date Data Source [id number] 07/08/2020 10:30:00 AM EDT [email or web address] Name Value Range Interpretation Code Description Data Fabiana rce(s) Supporting Document(s) Glucose [Mass/volume] in Serum or Plasma 123 mg/dL 74-99 [facility] ([facility]) 100-125 mg/dL PRE-DIABETES/FASTING >126 mg/dL DIABETES/FASTING Urea nitrogen [Mass/volume] in Serum or Plasma 18 mg/dL 7-18 [facility] ([facility]) Creatinine 1.0 mg/dL 0.6-1.3 [facility] ([facility] Sodium [Moles/volume] in Serum or Plasma 140 meq/L 136-145 [facility] ([facility]) Potassium [Moles/volume] in Serum or Plasma 4.1 meq/L 3.5-5.1 [facility] ([facility]) Chloride [Moles/volume] in Serum or Plasma 105 meq/L 98-107 [facility] ([facility]) Carbon dioxide, total [Moles/volume] in Serum or Plasma 28 meq/L 21 -32 [facility] ([facility]) Calcium [Mass/volume] in Serum or Plasma 8.8 mg/dL 8.5-10.1 [facility] ([facility]) Alkaline phosphatase isoenzyme [Units/volume] in Serum or Pl asma 111 mg/dL 46-116 [facility] ([facility]) Total Bilirubin 0.5 mg/dL 0.2-1.0 [facility] ([facility]) Aspartate aminotransferase [Enzymatic activity/volume] in Serum or Plasma 26 U/L 15-37 [facility] ([facility] ) Alanine aminotransferase [Enzymatic activity/volume] in Seru m or Plasma 30 U/L 12-78 [facility]) Albumin [Mass/volume] in Serum or Plasma 3.8 g/dL 3.4-5.0 [facility] ([facility]) Proteinase 3 Ab [Units/volume] in Serum 7.5 g/dL 6.4-8.2 [facility] ([facility]) A/G Ratio 1.03 CALC 1.00-1.90 [facility] Glomerular filtration rate/1.73 sq M pre dicted among non-blacks [Volume Rate/Area] in Serum or Plasma by Creatinine-based formula (MDRD) 57 mL/min [email or web address] Glomerular filtration rate/1.73 sq M pre dicted among blacks [Volume Rate/Area] in Serum or Plasma by Creatinine-based formula (MDRD) Laboratory test result [facility] ([facility]) <content>CHRONIC KIDNEY DISEASE STAGING PER NKF</content>
<content></content>
<content>STAGE I & II GFR >= 60 NORMAL TO MILDLY DECREASED</content>
<content>STAGE III GFR 30-59 MODERATELY DECREASED</content>
<content>STAGE IV GFR 15-29 SEVERELY DECREASED</content>
<content>STAGE V GFR <15 VERY LITTLE GFR LEFT</content>
<content>ESRD GFR <15 ON HAMMERER TAB</content>
<content></content> ID Date Data Source [id number] 07/08/2020 10:30:00 AM EDT [email or web address] Name Value Range Interpretation Code Description Data Fabiana rce(s) Supporting Document(s) Leukocytes [#/volume] in Blood by Automated count 5.6 x10*3/UL 4.1-10 .9 [email or web address] Erythrocytes [#/volume] in Blood by Automated count 4.44 x10*6/UL 4.2 0-6.30 [email or web address] Hemoglobin [Mass/volume] in Blood 13.5 g/dL 12.0-18.0 [facility] ([facility]) Hematocrit [Volume Fraction] of Blood by Automated count 40.2 % 3 7.0-51.0 [facility] ([facility]) MCV 90.5 fL 80.0-97.0 [facility] ([facility]) MCH 30.5 pg 26.0-32.0 [facility] ([facility]) MCHC 33.7 g/dL 31.0-38.0 [facility] ([facility]) Erythrocyte distribution width [Ratio] by Automated count 12.8 % 11.6-13.7 [facility] ([email or web address] Platelets [#/volume] in Blood by Automated count 230 x10*3/UL 140-440 [facility] ([facility]) MPV 9.9 FL 7.8-11.0 [facility] ([facility]) Lymph % 31.2 % 10.0-58.5 [facility] ([facility]) Mid % 8.5 % 1.7-9.3 [facility] ([facility] Neut % 60.3 % 37.0-92.0 [facility] ([facility]) Lymph # 1.7 x10*3/UL 0.6-4.1 [facility] ([facility]) Mid # 0.5 x10*3/UL 0.1-0.6 [facility] ([facility]) Neut # 3.4 x10*3/UL 2.0-7.8 [facility] ([facility]) ID Date Data Source [id number] 04/22/2020 03:20:00 PM EST [facility] ([facility]) Name Value Range Interpretation Code Description Data Fabiana rce(s) Supporting Document(s) Thyroxine (T4) free [Mass/volume] in Serum or Plasma 1.10 ng/dL 0.76- 1.46 [facility] ([facility]) ID Date Data Source [id number] 04/22/2020 03:20:00 PM EST [facility] ([facility]) Name Value Range Interpretation Code Description Data Fabiana rce(s) Supporting Document(s) Thyrotropin [Units/volume] in Serum or Plasma by Detec tion limit <= 0.05 mIU/L 7.53 uIU/mL 0.36-3.74 [facility] ) ID Date Data Source [id number] 04/22/2020 03:20:00 PM EST [facility] ([facility]) Name Value Range Interpretation Code Description Data Fabiana rce(s) Supporting Document(s) Glucose [Mass/volume] in Serum or Plasma 90 mg/dL 74-99 [facility] ([facility]) 100-125 mg/dL PRE-DIABETES/FASTING >126 mg/dL DIABETES/FASTING Urea nitrogen [Mass/volume] in Serum or Plasma 10 mg/dL 7-18 [facility] ([facility]) Sodium [Moles/volume] in Serum or Plasma 143 meq/L 136-145 [facility] ([facility]) Creatinine 0.9 mg/dL 0.6-1.3 [facility] ([facility]) Potassium [Moles/volume] in Serum or Plasma 3.9 meq/L 3.5-5.1 [facility] ([facility]) Chloride [Moles/volume] in Serum or Plasma 105 meq/L 98-107 [facility] ([facility]) Carbon dioxide, total [Moles/volume] in Serum or Plasma 29 meq/L 21 -32 [facility] ([facility]) Calcium [Mass/volume] in Serum or Plasma 9.1 mg/dL 8.5-10.1 [facility] ([email or web address] Glomerular filtration rate/1.73 sq M pre dicted among blacks [Volume Rate/Area] in Serum or Plasma by Creatinine-based formula (MDRD) Laboratory test result [email or web address] <content>CHRONIC KIDNEY DISEASE STAGING PER NKF</content>
<content></content>
<content>STAGE I & II GFR >= 60 NORMAL TO MILDLY DECREASED</content>
<content>STAGE III GFR 30-59 MODERATELY DECREASED</content>
<content>STAGE IV GFR 15-29 SEVERELY DECREASED</content>
<content>STAGE V GFR <15 VERY LITTLE GFR LEFT</content>
<content>ESRD GFR <15 ON HAMMERER TAB</content>
<content></content> Glomerular filtration rate/1.73 sq M pre dicted among non-blacks [Volume Rate/Area] in Serum or Plasma by Creatinine-based formula (MDRD) Laboratory test result [facility] ([facility] ) ID Date Data Source [id number] 04/18/2020 02:19:26 PM EST [facility] PCName: Francine JohnsonOB: 1960rovider: Vincent Dey: 04/18/2020 Reason For VisitFrancine Masters is here today for lumbar spine. Patient is seen at the request of PCP. Francine Masters is a new patient. Patient has xrays and MRI -[facility] . Patient states she has low back pain across the low back. Chronic - NKI. The patient has had a course of physical therapy for greater than 4 weeks. Physical therapy and/or home exercise program has not been effective. 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 History of Present IllnessPatient comes in with years of low back pain. There was no injury. It is in her low back and buttocks. She denies leg pain or numbness. She is on gabapentin from her primary care. She recently has begun Xarelto. She has a history of blood clots and this was started. She will know in a few days if this is more of a long-term or short-term medication. She has tried injections but not for several years. She is looking for other options. She would admit surgery is not her first choice. She feels the pain is worse when she is standing and walking. She is improved when she sitting, but she cannot sit all day. Results/Data Site: Lumbar Spine Views: 4 Views, AP/Lateral/Obliques Findings:. No fractures, dislocations, or other significant abnormalities. XRays previously taken at 12/28/19 were reviewed today. Previous x-rays are very difficult to read due to exposure. Results/Data OtherLumbar Spine I reviewed the MRI images (films) taken at 03/21/20 and the report of the Radiologist. Recent MRI from 03/13/2020 shows a spondylolisthesis L5-S1. It is grade 1. She has degenerative disc disease multilevel's but worse at L5-S1. Neuroforaminal stenosis is mild to moderate at L5-S1. AssessmentSpondylolisthesis L5-S1 grade 1. Degenerative disc disease L5-S1. PlanPlan, Assessment and Recommendation(s) Follow up as needed, if not improving, or getting worse. At this time this patient is not a candidate for surgery. Firstly, she is on Xarelto and we do not know if this is long-term. Secondly, she is morbidly obese. I did advise that if she did consider surgery in the future, she would need to lose some weight. She is talking to her doctor on Saturday to see if the Xarelto is a short-term or long-term. To get an injection with Dr. Amezquita from [facility], she would even need to be off it short-term. If her circumstances change and she consider surgery in the future, we will be here. Work / School NoteThe percentage of temporary impairment is 0%. The patient is not working at this time. This docum ent was dictated and electronically signed using [employer] software. A reasonable attempt at proof reading has been made to minimize errors. Please call with any questions. Signatures Electronically signed by : Arpita Dey PA-C; Apr 18 2020 10:09AM EST (Author) Electronically signed by : Bobo Pérez M.D.; Apr 18 2020 2:19PM EST Name Value Range Interpretation Code Description Data Fabiana rce(s) Supporting Document(s) ID Date Data Source [id number] 03/21/2020 12:00:00 AM EST [facility] Fatou Edwards DO Patient Name: FRANCINE MASTERS [id number] [facility] Date of : 1960[address] [facility]: [facility] [id number] Fax: [phone] EXAM: MRI LUMBAR SPINE WITHOUT CONTRASTPROCEDURE INFORMATION:Exam: MR Lumbar Spine Without Contrast.Exam date and time: 03/21/2020 7:43 AM Age: 59 years old Clinicalindication: Low back painTECHNIQUE: Imaging protocol: Multiplanar magnetic resonance images of thelumbar spine without intravenous contrast.COMPARISON: LUMBOSACRAL SPINE (4 VIEWS) 12/28/2019 11:07 AMFINDINGS:Vertebrae: Slight mid lumbar dextroconvex scoliosis, possibly related tosupine positioning. 6 mm of grade 1 anterolisthesis of L5 on S1 due to T5ajfrwquntxbkr. No acute fracture seen. Mild, chronic anterior wedging ofT12.Spinal cord: The conus medullaris ends normally. There is disc desiccationthroughout. Mild disc height loss and spondylosis with small endplateSchmorl's nodes at T10-11, T11-12 and L1-L2. Marked disc height loss andspondylosis at L5-S1. Slight lumbar prevertebral spondylosis elsewhere.L1-L2: Vfom-gw-bzpmjpwr diffuse disc bulge, facet arthropathy andligamentum flavum buckling. The central spinal canal remains patent. Mildbilateral neural foraminal stenoses.L2-L3: Mild disc bulge as well as mild to moderate facet arthropathy andligamentum flavum buckling. The central spinal canal remains patent.Minimal right neural foraminal stenosis.L3-L4: Mild diffuse disc bulge as well as mild to moderate left and mildright facet arthropathy. The central spinal canal remains patent. Mild leftneural foraminal stenosis. No significant right neural foraminal narrowing.L4-L5: Crch-uj-jrexgayd facet arthropathy. The central spinal canal ispatent. Minimal bilateral neural foraminal stenoses.L5- S1: Anterolisthesis with pseudobulging of the intervertebral disc.Moderate to severe facet arthropathy. The central spinal canal remainspatent. No evidence of S1 nerve root impingement. Dxrn-pb-tnvqhpde rightand mild left neural foraminal stenoses, the exiting right L5 nerve rootcontacts foraminal disc osteophyte.Soft tissues: Nonspecific edema in the back subcutaneous fat, potentiallydependent/positional.IMPRESSION:1. Grade 1 L5-S1 spondylolisthesis.2. Advanced L5-S1 degenerative disc disease.3. Ljtv-mw-javndshx right neural foraminal stenosis at L5-S1.Thank you for allowing us to participate in the care of your patient.Dictated and Authenticated by: Angie Chavez MD 03/21/2020 11:11 AMEastern Time ([place] & [place])JenniV/Susan you for referring FRANCINE MASTERS to our office. Electronically Signed - JENNI 03/21/20 15:33 Name Value Range Interpretation Code Description Data Fabiana rce(s) Supporting Document(s) ID Date Data Source [id number] 01/15/2020 12:00:00 AM EDT [facility] Fatou Edwards DO Patient Name: FRANCINE MASTERS [id number] [facility] 1960[facility] Date of Exam: 01/15/2020[place], [place] [id number]#: Fax: [phone] EXAM: MAMMO SCREENING WITH CADCLINICAL INFORMATION: Screening.Based on the personal and family history information your patient suppliedat the time of imaging, her lifetime risk of breast cancer estimated by theTyrer-Cuzick model is 7.0%. Given that this patient has less than 20% TCrisk score, no further medical management is currently recommended at thistime.Digital screening (2D) mammography was performed bilaterally in the CC andMLO projections. Additionally, breast tomosynthesis (3D mammography) wasperformed bilaterally in the CC and MLO projections. Today's exam wascompared to the prior exam(s).By history, the patient has no complaints of a palpable breast abnormalityor other significant breast complaints.The patient states last clinical breast exam was two years ago.The breasts are unchanged in size and shape. There are no jasmine- soft tissuedensities or spiculated masses. There is no internal architecturaldistortion. There are no suspicious jasmine-calcific clusters. Skinthickening or nipple retraction is not present. Benign calcifications areagain seen bilaterally.The Volpara volumetric breast density category is A, the breasts are almostentirely fatty.IMPRESSION:BI-RADS Category 2 - Benign Finding(s). Stable mammogram. There is noevidence of malignant alteration of the breasts. Followup examinationrecommended in one year.This mammogram was read with the assistance of [employer], an FDAapproved computer aided detection system for mammography.Negative x-ray reports should not delay surgical consultation if a dominantor clinically suspicious mass is present.Not all breast cancers can be identified by mammography. Therefore, werecommend that you continue to perform regular breast self-examination andphysical examination and then promptly contact your physician of anyconcerns or changes.Adenosis and dense breasts may obscure an underlying neoplasm.JOYCE Rodarte/Susan you for referring FRANCINE MASTERS to our office.Electronically Signed - MIKAELA LUA DO 01/15/20 12:02 Name Value Range Interpretation Code Description Data Fabiana rce(s) Supporting Document(s) ID Date Data Source [id number] 12/28/2019 12:00:00 AM EDT [facility] Fatou Edwards DO Patient Name: FRANCINE MASTERS [id number] Date [facility] : 1960[facility] Date of Exam: 12/28/2019CarlJEREMIAH casey [id number]#: Fax: [phone] EXAM: LUMBOSACRAL SPINE (4 VIEWS)CLINICAL INFORMATION: Chronic low back pain.Five views.Comparison 11/09/2009.Scattered bilateral marginal osteophytosis has increased from the priorexam. There is posterior disc space narrowing at every level which ismoderate and has increased from the prior exam with severe changes seen atL5-S1. There is an unchanged Grade II L5 upon S1 spondylolisthesis butwith increased disc space narrowing at that level. There are degenerativefacet joint changes seen bilaterally at every level, increased.IMPRESSION:Worsened chronic changes as described above.JOYCE Rodarte/Susan you for referring FRANCINE MASTERS to our office. Electronically Signed - MIKAELA LUA DO 12/29/19 14:20 Name Value Range Interpretation Code Description Data Fabiana rce(s) Supporting Document(s) ID Date Data Source [id number] 12/28/2019 12:00:00 AM EDT [facility] Fatou Edwards DO Patient Name: FRANCINE MASTERS [id number] Date [facility] : 1960[facility]: [facility] [id number]#: Fax: [phone] EXAM: CHEST (2 VIEW) X-RAYCLINICAL INFORMATION: Dyspnea.Two views.The superior mediastinal structures are midline. The heart is notenlarged. The diaphragmatic surfaces of the lungs are regular and thecostophrenic angles are clear. The pulmonary cooper are clear. Thevisualized osseous structures are intact.IMPRESSION:There is no acute cardiopulmonary disease.No significant change from the prior exam.JOYCE Hernandez/Susan you for referring FRANCINE MASTERS to our office. Electronically Signed - MIKAELA LUA DO 12/29/19 14:20 Name Value Range Interpretation Code Description Data Fabiana rce(s) Supporting Document(s) ID Date Data Source [id number] 12/28/2019 09:38:00 AM EDT [facility] ([facility]) Name Value Range Interpretation Code Description Data Fabiana rce(s) Supporting Document(s) Urea nitrogen [Mass/volume] in Serum or Plasma 14 mg/dL 7-18 [facility] ([facility]) Glucose [Mass/volume] in Serum or Plasma 118 mg/dL 74-99 [facility] ([facility]) 100-125 mg/dL PRE-DIABETES/FASTING >126 mg/dL DIABETES/FASTING Creatinine 0.9 mg/dL 0.6-1.3 [facility] ([facility]) Potassium [Moles/volume] in Serum or Plasma 3.9 meq/L 3.5-5.1 [facility] ([facility]) Chloride [Moles/volume] in Serum or Plasma 103 meq/L 98-107 [facility] ([facility]) Sodium [Moles/volume] in Serum or Plasma 141 meq/L 136-145 [facility] ([facility]) Carbon dioxide, total [Moles/volume] in Serum or Plasma 26 meq/L 21 -32 [facility] ([facility]) Calcium [Mass/volume] in Serum or Plasma 9.1 mg/dL 8.5-10.1 [facility] ([facility]) Glomerular filtration rate/1.73 sq M pre dicted among non-blacks [Volume Rate/Area] in Serum or Plasma by Creatinine-based formula (MDRD) Laboratory test result [email or web address] Glomerular filtration rate/1.73 sq M pre dicted among blacks [Volume Rate/Area] in Serum or Plasma by Creatinine-based formula (MDRD) Laboratory test result [email or web address] <content>CHRONIC KIDNEY DISEASE STAGING PER NKF</content>
<content></content>
<content>STAGE I & II GFR >= 60 NORMAL TO MILDLY DECREASED</content>
<content>STAGE III GFR 30-59 MODERATELY DECREASED</content>
<content>STAGE IV GFR 15-29 SEVERELY DECREASED</content>
<content>STAGE V GFR <15 VERY LITTLE GFR LEFT</content>
<content>ESRD GFR <15 ON HAMMERER TAB</content>
<content></content> ID Date Data Source [id number] 12/28/2019 09:38:00 AM EDT [facility] ([facility]) Name Value Range Interpretation Code Description Data Fabiana rce(s) Supporting Document(s) Natriuretic peptide B [Mass/volume] in Serum or Plasma 82.8 pg/mL 0.0 -100.0 [email or web address] ID Date Data Source [id number] 12/28/2019 09:38:00 AM EDT [email or web address] Name Value Range Interpretation Code Description Data Fabiana rce(s) Supporting Document(s) Leukocytes [#/volume] in Blood by Automated count 5.7 x10*3/UL 4.1-10 .9 [facility] Erythrocytes [#/volume] in Blood by Automated count 4.56 x10*6/UL 4.2 0-6.30 [facility] ([facility]) MCV 88.1 fL 80.0-97.0 [facility] Hematocrit [Volume Fraction] of Blood by Automated count 40.2 % 3 7.0-51.0 [facility] ([facility]) Hemoglobin [Mass/volume] in Blood 13.6 g/dL 12.0-18.0 [facility] ([facility]) MCHC 33.9 g/dL 31.0-38.0 [facility] ([facility]) MCH 29.9 pg 26.0-32.0 [facility] ([facility]) Erythrocyte distribution width [Ratio] by Automated count 12.7 % 11.6-13.7 [facility] ([email or web address] Platelets [#/volume] in Blood by Automated count 198 x10*3/UL 140-440 [facility] ([facility]) Lymph % 31.3 % 10.0-58.5 [facility] ([facility]) MPV 9.8 FL 7.8-11.0 [facility] ([facility]) Mid % 7.9 % 1.7-9.3 [facility] ([facility]) Neut % 60.8 % 37.0-92.0 [facility] ([facility]) Mid # 0.6 x10*3/UL 0.1-0.6 [facility] ([facility]) Lymph # 1.7 x10*3/UL 0.6-4.1 [facility] ([facility]) Neut # 3.4 x10*3/UL 2.0-7.8 [facility] ([facility]) ID Date Data Source [id number] 11/24/2019 10:33:00 AM EDT [facility] ([facility]) Name Value Range Interpretation Code Description Data Fabiana rce(s) Supporting Document(s) Thyrotropin [Units/volume] in Serum or Plasma by Detec tion limit <= 0.05 mIU/L 6.64 uIU/mL 0.36-3.74 [facility] ([facility] ) ID Date Data Source [id number] 11/24/2019 10:33:00 AM EDT [facility] ([facility]) Name Value Range Interpretation Code Description Data Fabiana rce(s) Supporting Document(s) Triglyceride [Mass/volume] in Serum or Plasma 216 mg/dL 30-150 [facility] ([facility]) Cholesterol [Mass/volume] in Serum or Plasma 223 mg/dL 131-200 [facility] ([facility]) Cholesterol in HDL [Mass/volume] in Serum or Plasma 56 mg/dL 35-60 [facility] ([facility]) Cholesterol in LDL [Mass/volume] in Serum or Plasma by calcu lation 124 CALC 50-159 [facility] ([facility]) ID Date Data Source [id number] 11/24/2019 10:33:00 AM EDT [facility] ([facility]) Name Value Range Interpretation Code Description Data Fabiana rce(s) Supporting Document(s) Glucose [Mass/volume] in Serum or Plasma 108 mg/dL 74-99 [facility] ([facility]) 100-125 mg/dL PRE-DIABETES/FASTING >126 mg/dL DIABETES/FASTING Urea nitrogen [Mass/volume] in Serum or Plasma 12 mg/dL 7-18 [facility] ([facility]) Sodium [Moles/volume] in Serum or Plasma 143 meq/L 136-145 [facility] ([facility]) Creatinine 0.8 mg/dL 0.6-1.3 [facility] Chloride [Moles/volume] in Serum or Plasma 104 meq/L 98-107 [facility] ([facility]) Carbon dioxide, total [Moles/volume] in Serum or Plasma 26 meq/L 21 -32 [facility] ([facility]) Potassium [Moles/volume] in Serum or Plasma 4.4 meq/L 3.5-5.1 [facility] ([facility]) Glomerular filtration rate/1.73 sq M pre dicted among blacks [Volume Rate/Area] in Serum or Plasma by Creatinine-based formula (MDRD) [email or web address] <content>CHRONIC KIDNEY DISEASE STAGING PER NKF</content>
<content></content>
<content>STAGE I & II GFR >= 60 NORMAL TO MILDLY DECREASED</content>
<content>STAGE III GFR 30-59 MODERATELY DECREASED</content>
<content>STAGE IV GFR 15-29 SEVERELY DECREASED</content>
<content>STAGE V GFR <15 VERY LITTLE GFR LEFT</content>
<content>ESRD GFR <15 ON HAMMERER TAB</content>
<content></content> Glomerular filtration rate/1.73 sq M pre dicted among non-blacks [Volume Rate/Area] in Serum or Plasma by Creatinine-based formula (MDRD) Laboratory test result [facility] ([facility] ) Calcium [Mass/volume] in Serum or Plasma 9.1 mg/dL 8.5-10.1 [facility] ([facility]) Procedure Social History Code Duration Value Status Description Data Source(s ) Smoking 03/31/2020 12:00:00 AM EST Never Smoker completed Never S moker eCW1 ([facility]) Smoking 03/14/2020 12:00:00 AM EST Patient has never smoked co mpleted Patient has never smoked [facility] ([facility]) Smoking 01/11/2020 12:00:00 AM EDT Never Smoker completed Never S moker eCW1 ([facility]) Vital Signs ID Date Data Source UNK Name Value Range Interpretation Code Description Data Source(s) Body weight 256.00 [lb_av] 256.00 [lb_av] [facility] T ([facility]) Diastolic blood pressure 80 mm[Hg] 80 mm[Hg] [facility] ([facility]) Heart rate 74 /min 74 /min [facility] ([facility]) Systolic blood pressure 132 mm[Hg] 132 mm[Hg] M EDENT ([facility]) Body height 66 [in_i] 66 [in_i] [facility] 5'6" Body mass index (BMI) [Ratio] 41.3 kg/m2 41.3 k g/m2 [facility] Diastolic blood pressure 84 mm[Hg] 84 mm[Hg] [facility] ([facility]) RT Arm Heart rate 64 /min 64 /min [facility] ([facility]) Body height 66 [in_i] 66 [in_i] [facility] ([facility]) 5'6" Body weight 260.12 [lb_av] 260.12 [lb_av] [facility] T ([facility]) Body mass index (BMI) [Ratio] 42.0 kg/m2 42.0 k g/m2 [facility] ([facility]) Systolic blood pressure 138 mm[Hg] 138 mm[Hg] M EDENT ([facility]) RT Arm Systolic blood pressure 130 mm[Hg] 130 mm[Hg] M EDENT ([facility]) Diastolic blood pressure 78 mm[Hg] 78 mm[Hg] [facility] ([facility]) Body height 66 [in_i] 66 [in_i] [facility] ([facility]) 5'6" Body weight 260.00 [lb_av] 260.00 [lb_av] MED[facility] T ([facility]) Body mass index (BMI) [Ratio] 42.0 kg/m2 42.0 k g/m2 [facility] ([facility]) Body height 66 [in_i] 66 [in_i] [facility] ([facility]) 5'6" Heart rate 76 /min 76 /min [facility] ([facility]) Diastolic blood pressure 70 mm[Hg] 70 mm[Hg] [facility] ([facility]) Systolic blood pressure 126 mm[Hg] 126 mm[Hg] M EDENT ([facility]) Body weight 260 [lb_av] 260 [lb_av] W1 ([facility]) Body height 66 [in_i] 66 [in_i] eCW1 ([facility]) Body mass index (BMI) [Ratio] 41.96 kg/m2 41.96 kg/m2 eCW1 ([facility]) Systolic blood pressure 132 mm[Hg] 132 mm[Hg] e CW1 ([facility]) Diastolic blood pressure 78 mm[Hg] 78 mm[Hg] eCW1 ([facility]) Body weight 261.00 [lb_av] 261.00 [lb_av] MED[facility] T ([facility]) Body mass index (BMI) [Ratio] 44.4 kg/m2 44.4 k g/m2 [facility] ([facility]) Systolic blood pressure 168 mm[Hg] 168 mm[Hg] M EDENT ([facility]) Body surface area Derived from formula 2.20 m2 2.20 m2 [facility] ([facility]) Diastolic blood pressure 88 mm[Hg] 88 mm[Hg] [facility] ([facility]) Body height 64.25 [in_i] 64.25 [in_i] [facility] ([facility]) 5'4.25" Diastolic blood pressure 88 mm[Hg] 88 mm[Hg] SE[facility] ([facility]) Systolic blood pressure 150 mm[Hg] 150 mm[Hg] A THENA ([facility]) Body mass index (BMI) [Ratio] 45.7 kg/m2 45.7 k g/m2 [facility] ([facility]) Body weight 266 [lb_av] 266 [lb_av] [facility]) Body height 64 [in_i] 64 [in_i] [facility] ([facility]) Systolic blood pressure 126 mm[Hg] 126 mm[Hg] M EDENT ([facility]) Diastolic blood pressure 78 mm[Hg] 78 mm[Hg] [facility] ([facility]) Heart rate 74 /min 74 /min [facility] ([facility]) Body height 66 [in_i] 66 [in_i] [facility] ([facility]) 5'6" Systolic blood pressure 128 mm[Hg] 128 mm[Hg] M EDENT ([facility]) Body weight 267.00 [lb_av] 267.00 [lb_av] MEDEN T ([facility]) Oxygen saturation in Arterial blood by Pulse oximetry 97 % 97 % [facility] ([facility]) Air Body mass index (BMI) [Ratio] 43.1 kg/m2 43.1 k g/m2 [facility] ([facility]) Diastolic blood pressure 80 mm[Hg] 80 mm[Hg] [facility] ([facility]) Heart rate 76 /min 76 /min [facility] ([facility]) Body height 66 [in_i] 66 [in_i] [facility] ([facility]) 5'6" Body weight 269.4 [lb_av] 269.4 [lb_av] [facility] Systolic blood pressure 140 mm[Hg] 140 mm[Hg] e CW1 ([facility]) Body height 66 [in_i] 66 [in_i] eCW1 ([facility]) Diastolic blood pressure 84 mm[Hg] 84 mm[Hg] eCW1 ([facility]) Body mass index (BMI) [Ratio] 43.48 kg/m2 43.48 kg/m2 eCW1 ([facility]) Oxygen saturation in Arterial blood by Pulse oximetry 96 % 96 % [facility] ([facility]) RM Air Body mass index (BMI) [Ratio] 43.1 kg/m2 43.1 k g/m2 [facility] ([facility]) Systolic blood pressure 130 mm[Hg] 130 mm[Hg] M EDENT ([facility]) Diastolic blood pressure 80 mm[Hg] 80 mm[Hg] [facility] ([facility]) Heart rate 69 /min 69 /min [facility] ([facility]) Body height 66 [in_i] 66 [in_i] [facility] ([facility]) 5'6" Body weight 267.00 [lb_av] 267.00 [lb_av] MEDEN T ([facility]) Systolic blood pressure 130 mm[Hg] 130 mm[Hg] M EDENT ([facility]) Oxygen saturation in Arterial blood by Pulse oximetry 95 % 95 % [facility] ([facility]) RM Air Body mass index (BMI) [Ratio] 43.3 kg/m2 43.3 k g/m2 [facility] ([facility]) Diastolic blood pressure 82 mm[Hg] 82 mm[Hg] [facility] ([facility]) Heart rate 78 /min 78 /min [facility] ([facility]) Body height 66 [in_i] 66 [in_i] [facility] ([facility]) 5'6" Body weight 268.00 [lb_av] 268.00 [lb_av] MEDEN T ([facility]) Patient Treatment Plan of Care Planned Activity Planned Date Details Description Data Source (s) 8 HR Acetaminophen 650 MG Extended Release Oral Tablet [Tylenol] [facility] ([facility]) 200 ACTUAT Albuterol 0.09 MG/ACTUAT Dry Powder Inhaler [ProAir] [facility] ([facility]) chlorhexidine gluconate 40 MG/ML Medicated Liquid Soap [Hibiclens] [facility] ([facility])
[2021-01-08] MEDS ORDERED: KETOROLAC 30 MG/ML 1ML VIAL IV ONE (14:40)
--- OUTSIDE RECORDS SUMMARY | 2021-01-08 15:07 | CCD ---
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 Care Appraiser Name Role Phone Shanae Astudillo MD Unavailable Unavailable Shanae Astudillo [...] Unavailable Unavailable Shanae Astudillo MD Unavailable Unavailable Boljohnnie, Shanae Alcaraz MD Unavailable Unavailable Bolla, S [...] Unavailable Bolla, S Kieran DAIGLE Unavailable Unavailable CHANG, Isaiah SHAW MD Unavailable [...] CHANG, L COLIN DAIGLE Unavailable Unavailable BETO, Praedep BROUSSARD MD Unavailable Unavailable BETO, Pradeep BROUSSARD [...] Pradeep BROUSSARD MD Unavailable Unavailable BETO, Pradeep BROUSSADR MD Unavailable Unavailable BETO, Pradeep BROUSSARD MD [...] BETO, E BOBO DAIGLE Unavailable Unavailable BETO, E BOBO DAIGLE Unavailable Unavailable BETO, E BOBO DAIGLE Unavailable [...] Unavailable BETO, Pradeep BROUSSARD MD Unavailable Unavailable BEOT, Pradeep BROUSSARD MD Unavailable Unavailable BETO, Pradeep [...] Unavailable Unavailable Grace, Fatou DO Unavailable Unavailable Garce, Fatou DO Unavailable Unavailable Grace, Fatou DO [...] L ARPITA PA Unavailable Unavailable DEY, L APRITA PA Unavailable Unavailable DEY, L ARPITA PA Unavailable Unavailable DEY, L ARPITA PA Unavailable Unavailable DEY, L ARPITA PA Unavailable Unavailable DEY, L ARPITA PA Unavailable Unavailable DEY, L ARPITA PA Unavailable Unavailable Isaiah DEY PA Unavailable Unavailable Isaiah DEY PA Unavailable Unavailable Isaiah DEY PA Unavailable Unavailable Grace, Fatou DO Unavailable [...] is protected by Article 27-F of the [facility] Public Health law. If you continue you may have access to information: Regarding HIV / AIDS; Provided by facilities licensed or operated by the [facility] Office of Mental Health; or Provided by the [facility] Office for People With Developmental Disabilities. If such information is present, then the following [facility] mandated warning applies: This information has [...] law may result in a fine or group home sentence or both. A general authorization for the release of medical or other information is NOT sufficient authorization for further disc losure. Family History Family Member Name Family Member Gender Family Member Status Date o f Status Description Data Source(s) Unknown Unknown Problem [facility] ([facility]) Encounters Encounter Providers Location Date Indications Data Source(s ) Outpatient Attender: Fatou Delgado 09/07 09:20:00 AM EDT MED[facility] ([facility] ) Outpatient Attender: Fatou Delgado 07/08 09:40:00 AM EDT MED[facility] ([facility] ) Outpatient Attender: Fatou Delgado 04/22 01:45:00 PM EST MED[facility] ([facility] ) Outpatient Attender: ARPITA DEY PAReferrer: Fatou Burk 04/18/2020 02:19:26 PM EST [facility] Recurring Patient Attender: BOBO PÉREZ MDReferrer: Fatou Edwards DO 04/18/2020 09:34:00 AM EST [facility] Outpatient Attender: Fatou Delgado 04/07 01:15:00 PM EST MEDENT ([facility] ) Outpatient Attender: COLIN Mcgrath Woman repatcher 07:45:00 AM EST [facility] ([facility]) Outpatient [facility] [id number] 03/31/2020 12:00:00 AM EST eCW1 ([facility]) [facility] Dermatology [address] [place] [phone] 03/31/2020 12:00:00 AM EST eCW1 ([facility]) Recurring Patient Attender: BOBO PÉREZ MDReferrer: Fatou Edwards DO 03/28/2020 09:48:24 AM EST [facility] Recurring Patient Attender: BOBO PÉREZ MDReferrer: Fatou Edwards DO 03/23/2020 01:27:48 PM EST [facility] Recurring Patient Attender: BOBO PÉREZ MDReferrer: Fatou Edwards DO 03/23/2020 01:15:33 PM EST [facility] Outpatient Attender: COLIN CHANG MD [facility] repat[facility] 07:45:00 AM EST MED[facility] ([facility]) Kieran Astudillo MD: [address] [address], [place] [address], Ph. Attender: Kieran Astudillo MD [place] - [facility] - Main Office 03/08/2020 12:00:00 AM EST [facility] ([facility]) Outpatient Attender: Fatou Delgado 02/25 12:30:00 PM EST MED[facility] ([facility] ) Outpatient Attender: Fatou Delgado 01/25 12:00:00 PM EST [facility] ([facility] ) Outpatient [address] [facility] [address] 01/11/2020 12:00:00 AM EDT eCW1 ([facility]) Outpatient Attender: Fatou Delgado 12/27 09:00:00 AM EDT MED[facility] ([facility] ) Outpatient Attender: Fatou Delgado 11/23 09:40:00 AM EDT [facility] ([facility] ) Immunizations Vaccine Date Status Description Data Source(s) COVID-19 VACCINE Moderna 07/12/2020 12:00:00 AM EDT completed [facility] Vaccine Series Complete: YESThis Data wa s Submitted to [facility] Via [employer]. COVID-19 VACCINE Moderna 06/10/2020 12:00:00 AM EDT completed [place] Vaccine Series Complete: NOThis Data was Submitted to [facility] Via [employer]. Influenza, injectable, MDCK, preservative free, jaylan valent 12/28/2019 09:57:00 AM EDT completed [facility]) Medications Medication Brand Name Start [...] 12:00:0 0 AM EDT ORAL active MED[facility] ([facility]) montelukast 10 MG Oral Tablet MONTELUKAST [...] Gabapentin 07/08/2020 12:00:00 AM EDT active MED[facility] ([facility]) 300 mg 06/18/2020 12:00:00 AM EDT [...] 12:00:00 AM EST ORAL active M SAMANTA ([facility]) 15 mg 04/08/2020 12:00:00 AM EST [...] 12:00:00 AM EST active MEDENT ([facility]) montelukast 10 MG Oral Tablet MONTELUKAST [...] 12/28/2019 12:00 :00 AM EDT completed MEDENT ([facility]) Medication administered onsite duloxetine 30 MG Delayed Release Oral Capsule Duloxetine HCL 12/28/2019 12:00:00 AM EDT ORAL completed MED[facility] ([facility]) 137 mcg 11/25/2019 12:00:00 AM EDT [...] 11/24/2019 12:00:00 AM EDT ORAL completed MED[facility] ([facility]) Amoxicillin 500 MG / Clavulanate 125 MG Oral Tablet [Augment in] Augmentin 06/15/2019 12:00:00 AM EDT ORAL completed MED[facility] ([facility]) Escitalopram 20 MG Oral Tablet ESCITALOPRAM [...] Release Oral Tablet [Tylenol] [facility] ([facility]) chlorhexidine gluconate 40 MG/ML Medicat ed Liquid Soap [Hibiclens] Hibiclens 4 % topical liquid NEEDED Hibiclens 4 % topical liquid NEEDED completed chlorhexidine glucon ate 40 MG/ML Medicated Liquid Soap [Hibiclens] [facility] ([facility]) 200 ACTUAT Albuterol 0.09 MG/ACTUAT Dry Powder Inhaler [ProAir] ProAir RespiClick 90 mcg/actuation breath activated Inhale 2 puffs every 4 hours by inhalation route as needed. ProAir RespiClick 90 mcg/actuation breat h activated Inhale 2 puffs every 4 hours by inhalation route as needed. 2 puff(s) completed 200 ACTUAT albuterol 0.09 MG/ACT UAT Dry Powder Inhaler [ProAir] [facility] ([facility]) Insurance Providers Payer name Policy type / Coverage type Policy ID Covered constitution party ID Covered constitution party's relationship to foley Policy Foley Plan Information [facility] Healthcare Commercial [id number] Self [id number] [facility] [place] [id number] Self Hmo MVP Commercial [id number] [id number] Self [id number] BS Gordon Trad/MX Medigap Part B [id number] Self [id number] BS Gordon Trad/MX Commercial [id number] Self BS Gordon Trad/MX Commercial [id number] [id number] Self [id number] BS Gordon Trad/MX Commercial [id number] [id number] Self [id number] BS Melvin Trad/MX Commercial [id number] Self [id number] BS Melvin Trad/MX Commercial [id number] [id number] Self [id number] BS Melvin Trad/MX Medigap Part B [id number] Self [id number] BS Melvin Trad/MX Commercial [id number] [id number] Self [id number] BS Melvin Trad/MX Commercial [id number] Self BS Melvin Trad/MX Medigap Part B [id number] [id number] Self [id number] BS Gordon Trad/MX Commercial [id number] [id number] Self [id number] BS Melvin Trad/MX Commercial [id number] Self [id number] BS Melvin Trad/MX Medigap Part B [id number] Self [id number] Blue Cross Blue Shield P [id number] SELF [id number] BS Melvin Trad/MX Commercial [id number] Self [id number] Blue Cross Blue Shield P [id number] SELF [id number] BS Melvin Trad/MX Commercial [id number] Self 82 BS Melvin Trad/MX Commercial [id number] Self [id number] BS Melvin Trad/MX Commercial [id number] Self [id number] BS Melvin Trad/MX Medigap Part B [id number] Self [id number] O BLUE [id number] SP [id number] MVP Medicaid Commercial [id number] Self [id number] MVP Medicaid F [id number] SELF [id number] MVP Medicaid F [id number] SELF [id number] EXCELLUS BCBS P [id number] S [id number] [id number] SELF PAY UNAVAILABLE UNAVAILA BLE EXCELLUS BCBS S UNAVAILABLE [id number] S UNAV AILABLE [facility] PHY [id number] SP [id number] MVP [id number] [id number] SP [id number] [facility] O [id number] S [id number] [id number] SP [id number] MEDICAID M [id number] S [id number] [facility] P [id number] S [id number] [facility] [id number] SP [id number] MEDICAID [id number] SP [id number] Medicaid Medigap Part B [id number] Self [id number] [facility] Medigap Part B [id number] Self [id number] [facility] Medigap Part B [id number] Self [id number] ANSI-Not a Secondary Insurance [id number] ANSI-Medicaid [id number] Medicaid Medigap Part B [id number] Self [id number] Medicaid Medigap Part B [id number] 91.0 Self [id number] Medicaid Medigap Part B [id number] 91.0 Self [id number] Medicaid Medicaid [id number] Self [id number] [facility] B [id number] S [id number] Medicaid Medicaid [id number] Self [id number] [facility] Medigap Part B [id number] Self Umr Medigap Part B [id number] Self [place] 306/806 [id number] SP [id number] [place] 306/806 [id number] SP [id number] [place]BS [place] PPO 302/307 [id number] SP [id number] EXCELLUS BCBS B [id number] S [id number] [place] 090/590 [id number] SP [id number] [place] 090/590 [id number] SP [id number] EXCELLUS BCBS P [id number] [place] [id number] Problems, Conditions, and Diagnoses Code Display Name Description Problem Type Effective Dates Data Source(s) D22.71 [id number] Melanocytic nevi of right lower limb, inc luding hip Problem 03/31/2020 12:00:00 AM EST eCW1 ([facility]) D22.72 [id number] Melanocytic nevi of left lower l imb, including hip Problem 03/31/2020 12:00:00 AM EST eCW1 ([facility]) D18.01 [id number] [place] angioma Problem 03/31/2020 12:00:00 A M EST eCW1 ([facility]) D22.61 [id number] Melanocytic nevi of right upper limb, including shoulder Problem 03/31/2020 12:00:00 AM EST eCW1 ([facility]) D22.62 [id number] Melanocytic nevi of left upper l imb, including shoulder Problem 03/31/2020 12:00:00 AM EST eCW1 ([facility]) Surgeries/Procedures Procedure Description Date Indications Data Source(s) OFFICE OUTPATIENT VISIT 25 MINUTES 09/07/2020 12:00:00 AM EDT MEDENT ([facility]) OFFICE OUTPATIENT VISIT 25 MINUTES 07/08/2020 12:00:00 AM EDT MEDENT ([facility]) OFFICE OUTPATIENT VISIT 25 MINUTES 04/22/2020 12:00:00 AM EST MED[facility] ([facility]) OFFICE OUTPATIENT VISIT 25 MINUTES 04/07/2020 12:00:00 AM EST MED[facility] ([facility]) Pessary Fitting & Insertion Of Pessary/Intravaginal Support Rima 03/30/2020 12:00:00 AM EST MED[facility] ([facility]) Mammogram 01/15/2020 12:00:00 AM EDT M EDENT ([facility]) Results ID Date Data Source [id number] 11/10/2020 11:42:00 PM EDT MEDENT ([facility]) Name Value Range Interpretation Code Description Data Fabiana rce(s) Supporting Document(s) Erythrocyte sedimentation rate by Westergren method 35 mm/hr 0-30 [facility] ([facility]) ID Date Data Source [id number] 11/10/2020 11:42:00 PM EDT MEDENT ([facility]) Name Value Range Interpretation Code Description Data Fabiana rce(s) Supporting Document(s) White Blood Count 7.2 10 4.0-10.0 MEDENT ([facility]) Red Blood Count 4.47 10 4.00-5.40 [facility] ([facility]) Hemoglobin 13.5 g/dL 12.0-15.5 [facility] Hematocrit 42.6 % 36.0-47.0 [facility] Mean Corpuscular Volume 95.3 fl 80.0-96.0 [facility] Mean Corpuscular Hemoglobin 30.2 pg 27.0-33.0 [facility] ([facility]) Mean Corpuscular HGB Conc 31.7 g/dL 32.0-36.5 [facility] NT ([facility]) Red Cell Distribution Width 13.1 % 11.5-14.5 [facility] ([facility]) Platelet Count, Automated 248 10 150-450 MEDE NT ([facility]) Neutrophils % 51.1 % 36.0-66.0 MEDENT ([facility]) Lymph % 32.9 % 24.0-44.0 [facility] Blaine % 11.7 % 2.0-8.0 [facility] Eos % 3.6 % 0.0-3.0 [facility] Immature Granulocyte % 0.3 % 0-3.0 [facility] ([facility]) Baso % 0.4 % 0.0-1.0 [facility] Neutrophils # 3.7 10 1.5-8.5 MED[facility] ([facility]) Nucleated Red Blood Cell % 0.0 % 0-0 MED [facility] ([facility]) Lymph # 2.4 10 1.5-5.0 [facility] Blaine # 0.8 10 0.0-0.8 [facility] Baso # 0.0 10 0.0-0.2 [facility] Eos # 0.3 10 0.0-0.5 [facility] ID Date Data Source [id number] 11/10/2020 11:42:00 PM EDT MED[facility] ([facility]) Name Value Range Interpretation Code Description Data Fabiana rce(s) Supporting Document(s) aPTT in Blood by Coagulation assay 29.4 s 25.9-37.0 [facility] ([facility]) ID Date Data Source [id number] 11/10/2020 11:42:00 PM EDT MED[facility] ([facility]) Name Value Range Interpretation Code Description Data Fabiana rce(s) Supporting Document(s) Prothrombin Time 13.1 s 12.7-14.5 [facility] ([facility]) Inr 0.95 [facility] THERAPUTIC HUMAN INR VALUES INDICATIONS NORMAL RANGES PROPHYLAXIS/TREATMENT OF: VENOUS THROMBOSIS 2.0-3.0 PULMONARY EMBOLISM 2.0-3.0 PREVENTION OF SYSTEMIC EMBOLISM FROM: TISSUE HEART VALVES 2.0-3.0 ACUTE MYOCARDIAL INFARCTION 2.0-3.0 VALVULAR HEART DISEASE 2.0-3.0 ATRIAL FIBRILLATION 2.0-3.0 MECHANICAL VALVES(HIGH RISK) 2.5-3.5 RECURRENT MYOCARDIAL INFARCTION 2.5-3.5 ID Date Data Source [id number] 11/10/2020 11:42:00 PM EDT MED[facility] ([facility]) Name Value Range Interpretation Code Description Data Fabiana rce(s) Supporting Document(s) Urate [Mass/volume] in Serum or Plasma 6.2 mg/dL 2.6-6.0 [facility] 0003] @---END MOBILAB COMMENT--- C reactive protein [Mass/volume] in Serum or Plasma by High sensitivity method 1.14 mg/dL 0.00-0.30 [facility] 0003] @---END MOBILAB COMMENT--- ID Date Data Source [id number] 11/10/2020 11:42:00 PM EDT [facility] Name Value Range Interpretation Code Description Data Fabiana rce(s) Supporting Document(s) Glucose, Fasting 95 mg/dL 70-100 [facility]) Blood Urea Nitrogen 12 mg/dL 7-18 [facility]) Glomerular Filtration Rate Laboratory test result [facility] ([facility]) <content>Units are mL/min/1.73 m2</content>
<content></content>
<content>Chronic Kidney Disease Staging per NKF:</content>
<content></content>
<content>Stage I & II GFR >=60 Normal to Mildly Decreased</content>
<content>Stage III GFR 30-59 Moderately Decreased</content>
<content>Stage IV GFR 15-29 Severely Decreased</content>
<content>Stage V GFR <15 Very Little GFR Left</content>
<content>ESRD GFR <15 on LANGUAGE TUTOR</content>
<content></content> Creatinine For GFR 0.88 mg/dL 0.55-1.30 [facility]) Sodium Level 143 meq/L 136-145 [facility] ([facility]) Potassium Serum 4.0 meq/L 3.5-5.1 [facility] Chloride Level 111 meq/L 98-107 [facility] ([facility]) Anion Gap 3 meq/L 8-16 [facility]) Carbon Dioxide Level 29 meq/L 21-32 [facility] Calcium Level 8.8 mg/dL 8.8-10.2 MEDENT ([facility]) ID Date Data Source [id number] 11/10/2020 11:42:00 PM EDT MEDENT ([facility]) Name Value Range Interpretation Code Description Data Fabiana rce(s) Supporting Document(s) Erythrocyte sedimentation rate by 2H Westergren method 35 mm/hr 0-3 0 MED[facility] ([facility], [facility]) Not an Urgent Care Patient ID Date Data Source [id number] 11/10/2020 11:42:00 PM EDT MEDENT ([facility]) Name Value Range Interpretation Code Description Data Fabiana rce(s) Supporting Document(s) White Blood Count 7.2 10 4.0-10.0 MEDENT ([facility], [facility]) Not an Urgent Care Patient Red Blood Count 4.47 10 4.00-5.40 MEDENT ([facility], [facility]) Not an Urgent Care Patient Hematocrit 42.6 % 36.0-47.0 [facility] Not an Urgent Care Patient Hemoglobin 13.5 g/dL 12.0-15.5 [facility]) Not an Urgent Care Patient Mean Corpuscular Volume 95.3 fl 80.0-96.0 M EDENT ([facility], [facility]) Not an Urgent Care Patient Mean Corpuscular Hemoglobin 30.2 pg 27.0-33.0 [facility] ([facility], [facility]) Not an Urgent Care Patient Mean Corpuscular HGB Conc 31.7 g/dL 32.0-36.5 MEDENT ([facility]) Not an Urgent Care Patient Red Cell Distribution Width 13.1 % 11.5-14.5 MEDENT ([facility]) Not an Urgent Care Patient Neutrophils % 51.1 % 36.0-66.0 MEDENT ([facility], [facility]) Not an Urgent Care Patient Platelet Count, Automated 248 10 150-450 MEDENT ([facility]) Not an Urgent Care Patient Lymph % 32.9 % 24.0-44.0 MEDENT ([facility], [facility]) Not an Urgent Care Patient Blaine % 11.7 % 2.0-8.0 MEDENT ([facility], [facility]) Not an Urgent Care Patient Eos % 3.6 % 0.0-3.0 MED[facility] ([facility], [facility]) Not an Urgent Care Patient Baso % 0.4 % 0.0-1.0 MEDENT ([facility], [facility]) Not an Urgent Care Patient Immature Granulocyte % 0.3 % 0-3.0 MEDENT ([facility]) Not an Urgent Care Patient Nucleated Red Blood Cell % 0.0 % 0-0 MED ENT ([facility], [facility]) Not an Urgent Care Patient Neutrophils # 3.7 10 1.5-8.5 MEDENT ([facility], [facility]) Not an Urgent Care Patient Lymph # 2.4 10 1.5-5.0 MEDENT ([facility], [facility]) Not an Urgent Care Patient Blaine # 0.8 10 0.0-0.8 MEDENT ([facility], [facility]) Not an Urgent Care Patient Baso # 0.0 10 0.0-0.2 MEDENT ([facility], [facility]) Not an Urgent Care Patient Eos # 0.3 10 0.0-0.5 MEDENT ([facility], [facility]) Not an Urgent Care Patient ID Date Data Source [id number] 11/10/2020 11:42:00 PM EDT MEDENT ([facility]) Name Value Range Interpretation Code Description Data Fabiana rce(s) Supporting Document(s) aPTT in Platelet poor plasma by Coagulation assay 29.4 s 25.9-37. 0 MED[facility] ([facility]) Not an Urgent Care Patient ID Date Data Source [id number] 11/10/2020 11:42:00 PM EDT MEDENT ([facility]) Name Value Range Interpretation Code Description Data Fabiana rce(s) Supporting Document(s) Prothrombin Time 13.1 s 12.7-14.5 MEDENT ([facility]) Not an Urgent Care Patient Inr 0.95 MEDENT ([facility]) Not an Urgent Care Patient ID Date Data Source [id number] 11/10/2020 11:42:00 PM EDT MEDENT ([facility]) Name Value Range Interpretation Code Description Data Fabiana rce(s) Supporting Document(s) Urate [Mass/volume] in Serum or Plasma 6.2 mg/dL 2.6-6.0 MEDENT ([facility]) Not an Urgent Care Patient C reactive protein [Mass/volume] in Serum or Plasma by High sensitivity method 1.14 mg/dL 0.00-0.30 [facility] Not an [facility] Care Patient ID Date Data Source [id number] 11/10/2020 11:42:00 PM EDT MEDENT ([facility]) Name Value Range Interpretation Code Description Data Fabiana rce(s) Supporting Document(s) Blood Urea Nitrogen 12 mg/dL 7-18 MEDENT ([facility]) Not an Urgent Care Patient Glucose, Fasting 95 mg/dL 70-100 MEDENT ([facility]) Not an Urgent Care Patient Creatinine For GFR 0.88 mg/dL 0.55-1.30 MED[facility] ([facility]) Not an Urgent Care Patient Glomerular Filtration Rate Laboratory test result MED[facility] ([facility]) Not an Urgent Care Patient Potassium Serum 4.0 meq/L 3.5-5.1 [facility] Urgent Care) Not an Urgent Care Patient Sodium Level 143 meq/L 136-145 [facility] ([facility]) Not an Urgent Care Patient Carbon Dioxide Level 29 meq/L 21-32 [facility] ( [facility]) Not an Urgent Care Patient Chloride Level 111 meq/L 98-107 [facility] ([facility], [facility]) Not an Urgent Care Patient Calcium Level 8.8 mg/dL 8.8-10.2 [facility] ([facility], [facility]) Not an Urgent Care Patient Anion Gap 3 meq/L 8-16 [facility] ([facility], [facility]) Not an Urgent Care Patient ID Date Data Source [id number] 09/07/2020 10:14:00 AM EDT [facility] ([facility]) Name Value Range Interpretation Code Description Data Fabiana rce(s) Supporting Document(s) Thyrotropin [Units/volume] in Serum or Plasma by Detec tion limit <= 0.05 mIU/L 0.84 uIU/mL 0.36-3.74 [facility] ([facility] ) ID Date Data Source [id number] 09/07/2020 10:14:00 AM EDT [facility] ([facility]) Name Value Range Interpretation Code Description Data Fabiana rce(s) Supporting Document(s) Glucose [Mass/volume] in Serum or Plasma 116 mg/dL 74-99 [facility] ([facility]) 100-125 mg/dL PRE-DIABETES/FASTING >126 mg/dL DIABETES/FASTING Urea nitrogen [Mass/volume] in Serum or Plasma 14 mg/dL 7-18 [facility] ([facility]) Sodium [Moles/volume] in Serum or Plasma 140 meq/L 136-145 [facility] ([facility]) Creatinine 0.9 mg/dL 0.6-1.3 [facility] ([facility]) Chloride [Moles/volume] in Serum or Plasma 104 meq/L 98-107 [facility] ([facility]) Potassium [Moles/volume] in Serum or Plasma 4.2 meq/L 3.5-5.1 [facility] ([facility]) Alkaline phosphatase isoenzyme [Units/volume] in Serum or Pl asma 122 mg/dL 46-116 [facility] ([facility]) Carbon dioxide, total [Moles/volume] in Serum or Plasma 28 meq/L 21 -32 [facility] ([facility]) Calcium [Mass/volume] in Serum or Plasma 9.1 mg/dL 8.5-10.1 [facility] ([facility]) Total Bilirubin 0.4 mg/dL 0.2-1.0 [facility] ([facility]) Alanine aminotransferase [Enzymatic activity/volume] in Seru m or Plasma 23 U/L 12-78 [facility] ([facility]) Aspartate aminotransferase [Enzymatic activity/volume] in Serum or Plasma 19 U/L 15-37 [facility] ([facility] ) Albumin [Mass/volume] in Serum or Plasma 3.4 g/dL 3.4-5.0 [facility] ([facility]) Proteinase 3 Ab [Units/volume] in Serum 7.0 g/dL 6.4-8.2 [facility] ([facility]) A/G Ratio 0.94 CALC 1.00-1.90 [facility] Glomerular filtration rate/1.73 sq M pre dicted among non-blacks [Volume Rate/Area] in Serum or Plasma by Creatinine-based formula (MDRD) Laboratory test result [facility] ([facility] ) Glomerular filtration rate/1.73 sq M pre dicted among blacks [Volume Rate/Area] in Serum or Plasma by Creatinine-based formula (MDRD) Laboratory test [facility]) <content>CHRONIC KIDNEY DISEASE STAGING PER NKF</content>
<content></content>
<content>STAGE I & II GFR >= 60 NORMAL TO MILDLY DECREASED</content>
<content>STAGE III GFR 30-59 MODERATELY DECREASED</content>
<content>STAGE IV GFR 15-29 SEVERELY DECREASED</content>
<content>STAGE V GFR <15 VERY LITTLE GFR LEFT</content>
<content>ESRD GFR <15 ON LANGUAGE TUTOR</content>
<content></content> ID Date Data Source [id number] 07/08/2020 10:30:00 AM EDT [facility] ([facility]) Name Value Range Interpretation Code Description Data Fabiana rce(s) Supporting Document(s) Thyrotropin [Units/volume] in Serum or Plasma by Detec tion limit <= 0.05 mIU/L 3.58 uIU/mL 0.36-3.74 [facility] ([facility] ) Thyroxine (T4) free [Mass/volume] in Serum or Plasma 1.04 ng/dL 0.76- 1.46 [facility] ([facility]) ID Date Data Source [id number] 07/08/2020 10:30:00 AM EDT [facility] ([facility]) Name Value Range Interpretation Code Description Data Fabiana rce(s) Supporting Document(s) Glucose [Mass/volume] in Serum or Plasma 123 mg/dL 74-99 [facility] ([facility]) 100-125 mg/dL PRE-DIABETES/FASTING >126 mg/dL DIABETES/FASTING Urea nitrogen [Mass/volume] in Serum or Plasma 18 mg/dL 7-18 [facility] ([facility]) Creatinine 1.0 mg/dL 0.6-1.3 [facility] ([facility]) Sodium [Moles/volume] in Serum or Plasma 140 meq/L 136-145 [facility] ([facility]) Potassium [Moles/volume] in Serum or Plasma 4.1 meq/L 3.5-5.1 [facility] ([facility]) Chloride [Moles/volume] in Serum or Plasma 105 meq/L 98-107 [facility] ([facility]) Carbon dioxide, total [Moles/volume] in Serum or Plasma 28 meq/L 21 -32 [facility] ([facility]) Calcium [Mass/volume] in Serum or Plasma 8.8 mg/dL 8.5-10.1 [facility] ([facility]) Alkaline phosphatase isoenzyme [Units/volume] in Serum or Pl asma 111 mg/dL 46-116 [facility] ([facility]) Total Bilirubin 0.5 mg/dL 0.2-1.0 [facility] ([facility]) Aspartate aminotransferase [Enzymatic activity/volume] in Serum or Plasma 26 U/L 15-37 [facility] ([facility] ) Alanine aminotransferase [Enzymatic activity/volume] in Seru m or Plasma 30 U/L 12-78 [facility] Albumin [Mass/volume] in Serum or Plasma 3.8 g/dL 3.4-5.0 [facility] ([facility]) Proteinase 3 Ab [Units/volume] in Serum 7.5 g/dL 6.4-8.2 [facility] A/G Ratio 1.03 CALC 1.00-1.90 [facility] Glomerular filtration rate/1.73 sq M pre dicted among non-blacks [Volume Rate/Area] in Serum or Plasma by Creatinine-based formula (MDRD) 57 mL/min [facility] Glomerular filtration rate/1.73 sq M pre dicted among blacks [Volume Rate/Area] in Serum or Plasma by Creatinine-based formula (MDRD) Laboratory test result [facility] ([facility]) <content>CHRONIC KIDNEY DISEASE STAGING PER NKF</content>
<content></content>
<content>STAGE I & II GFR >= 60 NORMAL TO MILDLY DECREASED</content>
<content>STAGE III GFR 30-59 MODERATELY DECREASED</content>
<content>STAGE IV GFR 15-29 SEVERELY DECREASED</content>
<content>STAGE V GFR <15 VERY LITTLE GFR LEFT</content>
<content>ESRD GFR <15 ON LANGUAGE TUTOR</content>
<content></content> ID Date Data Source [id number] 07/08/2020 10:30:00 AM EDT [facility] Name Value Range Interpretation Code Description Data Fabiana rce(s) Supporting Document(s) Leukocytes [#/volume] in Blood by Automated count 5.6 x10*3/UL 4.1-10 .9 [facility] Erythrocytes [#/volume] in Blood by Automated count 4.44 x10*6/UL 4.2 0-6.30 [facility] ([facility] Hemoglobin [Mass/volume] in Blood 13.5 g/dL 12.0-18.0 [facility] ([facility] Hematocrit [Volume Fraction] of Blood by Automated count 40.2 % 3 7.0-51.0 [facility] ([facility]) MCV 90.5 fL 80.0-97.0 [facility] ([facility]) MCH 30.5 pg 26.0-32.0 [facility] ([facility]) MCHC 33.7 g/dL 31.0-38.0 [facility] ([facility]) Erythrocyte distribution width [Ratio] by Automated count 12.8 % 11.6-13.7 [facility] ([facility] Platelets [#/volume] in Blood by Automated count 230 x10*3/UL 140-440 [facility] ([facility]) MPV 9.9 FL 7.8-11.0 [facility] ([facility]) Lymph % 31.2 % 10.0-58.5 [facility] ([facility]) Mid % 8.5 % 1.7-9.3 [facility] ([facility]) Neut % 60.3 % 37.0-92.0 [facility] ([facility]) Lymph # 1.7 x10*3/UL 0.6-4.1 [facility] ([facility]) Mid # 0.5 x10*3/UL 0.1-0.6 [facility] ([facility]) Neut # 3.4 x10*3/UL 2.0-7.8 [facility] ([facility]) ID Date Data Source [id number] 04/22/2020 03:20:00 PM EST [facility] ([facility]) Name Value Range Interpretation Code Description Data Fabiana rce(s) Supporting Document(s) Thyroxine (T4) free [Mass/volume] in Serum or Plasma 1.10 ng/dL 0.76- 1.46 [facility] ([facility] ID Date Data Source [id number] 04/22/2020 03:20:00 PM EST [facility] ([facility] Name Value Range Interpretation Code Description Data Fabiana rce(s) Supporting Document(s) Thyrotropin [Units/volume] in Serum or Plasma by Detec tion limit <= 0.05 mIU/L 7.53 uIU/mL 0.36-3.74 [facility] ([facility] ) ID Date Data Source [id number] 04/22/2020 03:20:00 PM EST [facility] ([facility]) Name Value Range Interpretation Code Description Data Fabiana rce(s) Supporting Document(s) Glucose [Mass/volume] in Serum or Plasma 90 mg/dL 74-99 [facility] ([facility]) 100-125 mg/dL PRE-DIABETES/FASTING >126 mg/dL DIABETES/FASTING Urea nitrogen [Mass/volume] in Serum or Plasma 10 mg/dL 7-18 [facility] ([facility]) Sodium [Moles/volume] in Serum or Plasma 143 meq/L 136-145 [facility] ([facility]) Creatinine 0.9 mg/dL 0.6-1.3 [facility] ([facility]) Potassium [Moles/volume] in Serum or Plasma 3.9 meq/L 3.5-5.1 [facility] ([facility]) Chloride [Moles/volume] in Serum or Plasma 105 meq/L 98-107 [facility] ([facility]) Carbon dioxide, total [Moles/volume] in Serum or Plasma 29 meq/L 21 -32 [facility] ([facility]) Calcium [Mass/volume] in Serum or Plasma 9.1 mg/dL 8.5-10.1 [facility] ([facility]) Glomerular filtration rate/1.73 sq M pre dicted among blacks [Volume Rate/Area] in Serum or Plasma by Creatinine-based formula (MDRD) Laboratory test result [facility] ([facility] <content>CHRONIC KIDNEY DISEASE STAGING PER NKF</content>
<content></content>
<content>STAGE I & II GFR >= 60 NORMAL TO MILDLY DECREASED</content>
<content>STAGE III GFR 30-59 MODERATELY DECREASED</content>
<content>STAGE IV GFR 15-29 SEVERELY DECREASED</content>
<content>STAGE V GFR <15 VERY LITTLE GFR LEFT</content>
<content>ESRD GFR <15 ON LANGUAGE TUTOR</content>
<content></content> Glomerular filtration rate/1.73 sq M pre dicted among non-blacks [Volume Rate/Area] in Serum or Plasma by Creatinine-based formula (MDRD) Laboratory test result [facility] ([facility] ) ID Date Data Source [id number] 04/18/2020 02:19:26 PM EST [facility], PCName: Francine JohnsonOB: 1Provider: Vincent Dey: 04/18/2020 Reason For VisitFrancine Masters [...] home exercise program has not been effective. ([employer] Contract). Patient is working at this time at [...] get an injection with Dr. Amezquita from [facility], she would even need to be off it short-term. If her circumstances change and she consider surgery in the future, we will be here. Work / School NoteThe percentage of temporary impairment is 0%. The patient is not working at this time. This docum ent was dictated and electronically signed using [employer] software. A reasonable attempt at proof reading has been made to minimize errors. Please call with any questions. Signatures Electronically signed by : Arpita Dey PA-C; Apr 18 2020 10:09AM EST (Author) Electronically signed by : Bobo Pérez M.D.; Apr 18 2020 2:19PM EST Name Value Range Interpretation Code Description Data Fabiana rce(s) Supporting Document(s) ID Date Data Source [id number] 03/21/2020 12:00:00 AM EST [facility] DO Patient Name: FRANCINE MASTERS [id number] [facility] Date of : 1960uit 301 Date of Exam: 03/21/2020JEREMIAH Robledo [id number]#: Fax: [phone] EXAM: MRI LUMBAR SPINE WITHOUT [...] anterolisthesis of L5 on S1 due to [id number]. No acute fracture seen. Mild, chronic anterior wedging ofT12.Spinal cord: The conus medullaris ends normally. There is disc desiccationthroughout. Mild disc height loss and spondylosis with small endplateSchmorl's nodes at T10-11, T11-12 and L1-L2. Marked disc height loss andspondylosis at L5-S1. Slight lumbar prevertebral spondylosis elsewhere.L1-L2: Wuww-mx-pjhvudif diffuse disc bulge, facet arthropathy andligamentum flavum [...] stenosis. No significant right neural foraminal narrowing.L4-L5: Hshn-iz-zzzlgyqn facet arthropathy. The central spinal canal ispatent. Minimal bilateral neural foraminal stenoses.L5- S1: Anterolisthesis with pseudobulging of the intervertebral disc.Moderate to severe facet arthropathy. The central spinal canal remainspatent. No evidence of S1 nerve root impingement. Acrj-if-ttwithem rightand mild left neural foraminal stenoses, the exiting right L5 nerve rootcontacts foraminal disc osteophyte.Soft tissues: Nonspecific edema in the back subcutaneous fat, potentiallydependent/positional.IMPRESSION:1. Grade 1 L5-S1 spondylolisthesis.2. Advanced L5-S1 degenerative disc disease.3. Hfnw-zv-abhwctwc right neural foraminal stenosis at L5-S1.Thank you for allowing us to participate in the care of your patient.Dictated and Authenticated by: Angie Chavez MD 03/21/2020 11:11 AMEastern Time ([place] & [place])JenniV/Susan you for referring FRANCINE MASTERS to our office. Electronically Signed - JENNI 03/21/20 15:33 Name Value Range Interpretation Code Description Data Fabiana rce(s) Supporting Document(s) ID Date Data Source [id number] 01/15/2020 12:00:[address] [facility] Fatou Edwards DO Patient Name: FRANCINE MASTERS [id number] [facility] Date of : 1960[facility] [address] Date of Exam: 01/15/2020[place], [place] [id number]#: Fax: [phone] EXAM: MAMMO SCREENING WITH CADCLINICAL [...] mammogram was read with the assistance of [employer], an FDAapproved computer aided detection system for [...] rce(s) Supporting Document(s) ID Date Data Source [id number] 12/28/2019 12:00:[address] [facility] Fatou Edwards DO Patient Name: FRANCINE MASTERS [id number] [facility] Date of : 1960[facility] [address] Date [facility] Ex[facility] [id number]#: Fax: [phone] EXAM: LUMBOSACRAL SPINE (4 VIEWS)CLINICAL [...] every level, increased.IMPRESSION:Worsened chronic changes as described above.JOCYE Rodarte/Susan you for referring FRANCINE MASTERS to our office. Electronically Signed - MIKAELA LUA DO 12/29/19 14:20 Name Value Range Interpretation Code Description Data Fabiana rce(s) Supporting Document(s) ID Date Data Source [id number] 12/28/2019 12:00:[address] [facility] Fatou Edwards DO Patient Name: FRANCINE MASTERS [id number] [facility] 1960[facility] Date of Exam: [facility]28/[address] [id number]#: Fax: [phone] EXAM: CHEST (2 VIEW) X-RAYCLINICAL INFORMATION: Dyspnea.Two views.The superior mediastinal structures are midline. The heart is notenlarged. The diaphragmatic surfaces of the lungs are regular and thecostophrenic angles are clear. The pulmonary cooper are clear. Thevisualized osseous structures are intact.IMPRESSION:There is no acute cardiopulmonary disease.No significant change from the prior exam.JOYCE Hernandez/Susan you for referring FRANCINE MASETRS to our office. Electronically Signed - MIKAELA LUA DO 12/29/19 14:20 Name Value Range Interpretation Code Description Data Fabiana rce(s) Supporting Document(s) ID Date Data Source [id number] 12/28/2019 09:38:00 AM EDT [facility] ([facility]) Name Value Range Interpretation Code Description Data Fabiana rce(s) Supporting Document(s) Urea nitrogen [Mass/volume] in Serum or Plasma 14 mg/dL 7-18 [facility] ([facility]) Glucose [Mass/volume] in Serum or Plasma 118 mg/dL 74-99 [facility] ([facility]) 100-125 mg/dL PRE-DIABETES/FASTING >126 mg/dL DIABETES/FASTING Creatinine 0.9 mg/dL 0.6-1.3 [facility] ([facility]) Potassium [Moles/volume] in Serum or Plasma 3.9 meq/L 3.5-5.1 [facility] ([facility]) Chloride [Moles/volume] in Serum or Plasma 103 meq/L 98-107 [facility] ([facility]) Sodium [Moles/volume] in Serum or Plasma 141 meq/L 136-145 [facility] ([facility]) Carbon dioxide, total [Moles/volume] in Serum or Plasma 26 meq/L 21 -32 [facility] ([facility]) Calcium [Mass/volume] in Serum or Plasma 9.1 mg/dL 8.5-10.1 [facility] ([facility]) Glomerular filtration rate/1.73 sq M pre dicted among non-blacks [Volume Rate/Area] in Serum or Plasma by Creatinine-based formula (MDRD) Laboratory test result [facility] ([facility] Glomerular filtration rate/1.73 sq M pre dicted among blacks [Volume Rate/Area] in Serum or Plasma by Creatinine-based formula (MDRD) Laboratory test result [facility] ([facility]) <content>CHRONIC KIDNEY DISEASE STAGING PER NKF</content>
<content></content>
<content>STAGE I & II GFR >= 60 NORMAL TO MILDLY DECREASED</content>
<content>STAGE III GFR 30-59 MODERATELY DECREASED</content>
<content>STAGE IV GFR 15-29 SEVERELY DECREASED</content>
<content>STAGE V GFR <15 VERY LITTLE GFR LEFT</content>
<content>ESRD GFR <15 ON LANGUAGE TUTOR</content>
<content></content> ID Date Data Source [id number] 12/28/2019 09:38:00 AM EDT [facility] ([facility]) Name Value Range Interpretation Code Description Data Fabiana rce(s) Supporting Document(s) Natriuretic peptide B [Mass/volume] in Serum or Plasma 82.8 pg/mL 0.0 -100.0 [facility] ([facility] ID Date Data Source [id number] 12/28/2019 09:38:00 AM EDT [facility] Name Value Range Interpretation Code Description Data Fabiana rce(s) Supporting Document(s) Leukocytes [#/volume] in Blood by Automated count 5.7 x10*3/UL 4.1-10 .9 [facility] ([facility]) Erythrocytes [#/volume] in Blood by Automated count 4.56 x10*6/UL 4.2 0-6.30 [facility] MCV 88.1 fL 80.0-97.0 [facility] Hematocrit [Volume Fraction] of Blood by Automated count 40.2 % 3 7.0-51.0 [facility] ([facility] Hemoglobin [Mass/volume] in Blood 13.6 g/dL 12.0-18.0 [facility] ([facility]) MCHC 33.9 g/dL 31.0-38.0 [facility] ([facility]) MCH 29.9 pg 26.0-32.0 [facility] ([facility]) Erythrocyte distribution width [Ratio] by Automated count 12.7 % 11.6-13.7 [facility] ([facility] Platelets [#/volume] in Blood by Automated count 198 x10*3/UL 140-440 [facility] ([facility]) Lymph % 31.3 % 10.0-58.5 [facility] ([facility]) MPV 9.8 FL 7.8-11.0 [facility] ([facility]) Mid % 7.9 % 1.7-9.3 [facility] ([facility]) Neut % 60.8 % 37.0-92.0 [facility] ([facility]) Mid # 0.6 x10*3/UL 0.1-0.6 [facility] ([facility]) Lymph # 1.7 x10*3/UL 0.6-4.1 [facility] ([facility]) Neut # 3.4 x10*3/UL 2.0-7.8 [facility] ([facility]) ID Date Data Source [id number] 11/24/2019 10:33:00 AM EDT [facility] ([facility] Name Value Range Interpretation Code Description Data Fabiana rce(s) Supporting Document(s) Thyrotropin [Units/volume] in Serum or Plasma by Detec tion limit <= 0.05 mIU/L 6.64 uIU/mL 0.36-3.74 [facility] ([facility] ID Date Data Source [id number] 11/24/2019 10:33:00 AM EDT [facility] ([facility] Name Value Range Interpretation Code Description Data Fabiana rce(s) Supporting Document(s) Triglyceride [Mass/volume] in Serum or Plasma 216 mg/dL 30-150 [facility] ([facility]) Cholesterol [Mass/volume] in Serum or Plasma 223 mg/dL 131-200 [facility] ([facility]) Cholesterol in HDL [Mass/volume] in Serum or Plasma 56 mg/dL 35-60 [facility] ([facility]) Cholesterol in LDL [Mass/volume] in Serum or Plasma by calcu lation 124 CALC 50-159 [facility] ([facility]) ID Date Data Source [id number] 11/24/2019 10:33:00 AM EDT [facility] ([facility]) Name Value Range Interpretation Code Description Data Fabiana rce(s) Supporting Document(s) Glucose [Mass/volume] in Serum or Plasma 108 mg/dL 74-99 [facility] ([facility]) 100-125 mg/dL PRE-DIABETES/FASTING >126 mg/dL DIABETES/FASTING Urea nitrogen [Mass/volume] in Serum or Plasma 12 mg/dL 7-18 [facility] ([facility]) Sodium [Moles/volume] in Serum or Plasma 143 meq/L 136-145 [facility] ([facility]) Creatinine 0.8 mg/dL 0.6-1.3 [facility] ([facility]) Chloride [Moles/volume] in Serum or Plasma 104 meq/L 98-107 [facility] ([facility]) Carbon dioxide, total [Moles/volume] in Serum or Plasma 26 meq/L 21 -32 [facility] ([facility]) Potassium [Moles/volume] in Serum or Plasma 4.4 meq/L 3.5-5.1 [facility] ([facility]) Glomerular filtration rate/1.73 sq M pre dicted among blacks [Volume Rate/Area] in Serum or Plasma by Creatinine-based formula (MDRD) Laboratory test result [facility] ([facility]) <content>CHRONIC KIDNEY DISEASE STAGING PER NKF</content>
<content></content>
<content>STAGE I & II GFR >= 60 NORMAL TO MILDLY DECREASED</content>
<content>STAGE III GFR 30-59 MODERATELY DECREASED</content>
<content>STAGE IV GFR 15-29 SEVERELY DECREASED</content>
<content>STAGE V GFR <15 VERY LITTLE GFR LEFT</content>
<content>ESRD GFR <15 ON LANGUAGE TUTOR</content>
<content></content> Glomerular filtration rate/1.73 sq M pre dicted among non-blacks [Volume Rate/Area] in Serum or Plasma by Creatinine-based formula (MDRD) Laboratory test result [facility] ([facility] ) Calcium [Mass/volume] in Serum or Plasma 9.1 mg/dL 8.5-10.1 [facility] ([facility]) Procedure Social History Code Duration Value Status Description Data Source(s ) Smoking 03/31/2020 12:00:00 AM EST Never Smoker completed Never S moker eCW1 ([facility]) Smoking 03/14/2020 12:00:00 AM EST Patient has never smoked co mpleted Patient has never smoked [facility] ([facility]) Smoking 01/11/2020 12:00:00 AM EDT Never Smoker completed Never S moker eCW1 ([facility]) Vital Signs ID Date Data Source [id number] Name Value Range Interpretation Code Description Data Source(s) Diastolic blood pressure 80 mm[Hg] 80 mm[Hg] [facility] ([facility]) Body weight 256.00 [lb_av] 256.00 [lb_av] [facility] T ([facility]) Systolic blood pressure 132 mm[Hg] 132 mm[Hg] M EDENT ([facility]) Heart rate 74 /min 74 /min [facility] ([facility]) Body height 66 [in_i] 66 [in_i] [facility] ([facility]) 5'6" Body mass index (BMI) [Ratio] 41.3 kg/m2 41.3 k g/m2 [facility] ([facility]) Diastolic blood pressure 84 mm[Hg] 84 [facility] RT Arm Heart rate 64 /min 64 /min [facility] ([facility]) Body height 66 [in_i] 66 [in_i] [facility] ([facility]) 5'6" Body weight 260.12 [lb_av] 260.12 [lb_av] [facility] T ([facility]) Body mass index (BMI) [Ratio] 42.0 kg/m2 42.0 k g/m2 [facility] ([facility]) Systolic blood pressure 138 mm[Hg] 138 mm[Hg] M [facility] ([facility]) RT Arm Systolic blood pressure 130 mm[Hg] 130 mm[Hg] M [facility] ([facility]) Diastolic blood pressure 78 mm[Hg] 78 mm[Hg] MEDENT ([facility]) Body height 66 [in_i] 66 [in_i] MEDENT ([facility]) 5'6" Body weight 260.00 [lb_av] 260.00 [lb_av] MEDEN T ([facility]) Body mass index (BMI) [Ratio] 42.0 kg/m2 42.0 k g/m2 MEDENT ([facility]) Heart rate 76 /min 76 /min MEDENT ([facility]) Diastolic blood pressure 70 mm[Hg] 70 mm[Hg] MEDENT ([facility]) Body height 66 [in_i] 66 [in_i] MEDENT ([facility]) 5'6" Systolic blood pressure 126 mm[Hg] 126 mm[Hg] M EDENT ([facility]) Body weight 260 [lb_av] 260 [lb_av] eCW1 ([facility]) Body height 66 [in_i] 66 [in_i] eCW1 ([facility]) Body mass index (BMI) [Ratio] 41.96 kg/m2 41.96 kg/m2 eCW1 ([facility]) Systolic blood pressure 132 mm[Hg] 132 mm[Hg] e CW1 ([facility]) Diastolic blood pressure 78 mm[Hg] 78 mm[Hg] eCW1 ([facility]) Body weight 261.00 [lb_av] 261.00 [lb_av] MEDEN T ([facility]) Systolic blood pressure 168 mm[Hg] 168 mm[Hg] M EDENT ([facility]) Diastolic blood pressure 88 mm[Hg] 88 mm[Hg] MEDENT ([facility]) Body height 64.25 [in_i] 64.25 [in_i] MEDENT ([facility]) 5'4.25" Body mass index (BMI) [Ratio] 44.4 kg/m2 44.4 k g/m2 MEDENT ([facility]) Body surface area Derived from formula 2.20 m2 2.20 m2 MEDENT ([facility]) Diastolic blood pressure 88 mm[Hg] 88 mm[Hg] SEAMUS ([facility]) Systolic blood pressure 150 mm[Hg] 150 mm[Hg] A THENA ([facility]) Body height 64 [in_i] 64 [in_i] SEAMUS ([facility]) Body mass index (BMI) [Ratio] 45.7 kg/m2 45.7 k g/m2 SEAMUS ([facility]) Body weight 266 [lb_av] 266 [lb_av] SEAMUS ([facility]) Systolic blood pressure 126 mm[Hg] 126 mm[Hg] M EDENT ([facility]) Diastolic blood pressure 78 mm[Hg] 78 mm[Hg] MEDENT ([facility]) Heart rate 74 /min 74 /min MEDENT ([facility]) Body height 66 [in_i] 66 [in_i] MEDENT ([facility]) 5'6" Body weight 267.00 [lb_av] 267.00 [lb_av] MEDEN T ([facility]) Systolic blood pressure 128 mm[Hg] 128 mm[Hg] M EDENT ([facility]) Diastolic blood pressure 80 mm[Hg] 80 mm[Hg] MEDENT ([facility]) Heart rate 76 /min 76 /min MEDENT ([facility]) Oxygen saturation in Arterial blood by Pulse oximetry 97 % 97 % MEDENT ([facility]) Air Body height 66 [in_i] 66 [in_i] MEDENT ([facility]) 5'6" Body mass index (BMI) [Ratio] 43.1 kg/m2 43.1 k g/m2 MEDENT ([facility]) Body height 66 [in_i] 66 [in_i] W1 ([facility]) Body weight 269.4 [lb_av] 269.4 [lb_av] eCW1 ([facility]) Systolic blood pressure 140 mm[Hg] 140 mm[Hg] e CW1 ([facility]) Diastolic blood pressure 84 mm[Hg] 84 mm[Hg] eCW1 ([facility]) Body mass index (BMI) [Ratio] 43.48 kg/m2 43.48 kg/m2 W1 ([facility]) Oxygen saturation in Arterial blood by Pulse oximetry 96 % 96 % MEDENT ([facility]) RM Air Body mass index (BMI) [Ratio] 43.1 kg/m2 43.1 k g/m2 MEDENT ([facility]) Systolic blood pressure 130 mm[Hg] 130 mm[Hg] M EDENT ([facility]) Diastolic blood pressure 80 mm[Hg] 80 mm[Hg] MEDENT ([facility]) Heart rate 69 /min 69 /min MEDENT ([facility]) Body height 66 [in_i] 66 [in_i] MEDENT ([facility]) 5'6" Body weight 267.00 [lb_av] 267.00 [lb_av] MEDEN T ([facility]) Systolic blood pressure 130 mm[Hg] 130 mm[Hg] M EDENT ([facility]) Diastolic blood pressure 82 mm[Hg] 82 mm[Hg] MEDENT ([facility]) Heart rate 78 /min 78 /min MEDENT ([facility]) Oxygen saturation in Arterial blood by Pulse oximetry 95 % 95 % MEDENT ([facility]) RM Air Body mass index (BMI) [Ratio] 43.3 kg/m2 43.3 k g/m2 MEDENT ([facility]) Body height 66 [in_i] 66 [in_i] MEDENT ([facility]) 5'6" Body weight 268.00 [lb_av] 268.00 [lb_av] MEDEN T ([facility]) Patient Treatment Plan of Care Planned Activity Planned Date Details Description Data Source (s) 8 HR Acetaminophen 650 MG Extended Release Oral Tablet [Tylenol] SEAMUS ([facility]) 200 ACTUAT Albuterol 0.09 MG/ACTUAT Dry Powder Inhaler [ProAir] SEAMUS ([facility]) chlorhexidine gluconate 40 MG/ML Medicated Liquid Soap [Hibiclens] SEAMUS ([facility])
[2021-01-08 15:42] LABS: BASO % 0.4 % (0.0-1.0); EOS # 0.2 10^3/uL (0.0-0.5); EOS % 1.6 % (0.0-3.0); LYMPH # 2.1 10^3/uL (1.5-5.0); LYMPH % 22.4 % (24.0-44.0); MEAN CORPUSCULAR HEMOGLOBIN 30.8 pg (27.0-33.0); MEAN CORPUSCULAR HGB CONC 32.5 g/dl (32.0-36.5); MEAN CORPUSCULAR VOLUME 94.8 fl (80.0-96.0); MONO % 10.9 % (2.0-8.0); NEUTROPHILS # 5.9 10^3/uL (1.5-8.5); NEUTROPHILS % 64.4 % (36.0-66.0); PLATELET COUNT, AUTOMATED 212 10^3/uL (150-450); RED BLOOD COUNT 4.22 10^6/uL (4.00-5.40); WHITE BLOOD COUNT 9.2 10^3/uL (4.0-10.0)
[2021-01-08 16:03] LABS: ALBUMIN 3.2 GM/DL (3.2-5.2); BILIRUBIN,DIRECT 0.1 MG/DL (0.0-0.2); BILIRUBIN,TOTAL 0.6 MG/DL (0.2-1.0); TOTAL PROTEIN 6.9 GM/DL (6.4-8.2)
[2021-01-08] MEDS ORDERED: ISOVUE-370 76% 100ML VIAL As Ordered ONE (16:09)
--- NOTE | 2021-01-08 17:09 | REP ---
INDICATION: LLQ pain. COMPARISON: 01/06/2016 TECHNIQUE: Axial contrast-enhanced images from the lung bases to the pubic symphysis using 100 cc Isovue 370 intravenous contrast material. Coronal and sagittal reformations obtained. This CT examination was performed using the following dose reduction techniques: Automated exposure control, adjustment of mA and/or kv according to the patient's size, and the use of iterative reconstruction technique. FINDINGS: Evaluation of the enteric system demonstrates very subtle focal inflammatory stranding involving the proximal sigmoid colon surrounding enhancing diverticula and consistent with acute diverticulitis. No evidence for perforation, ascites or drainable collection/abscess. Remainder of the small and large bowel is relatively unremarkable and without obstruction. Normal terminal ileum and appendix are identified in the right lower quadrant. Liver, spleen, pancreas, bilateral adrenal glands and kidneys are normal. Evidence for prior cholecystectomy noted. Pelvis demonstrates normal bladder and prior hysterectomy. Abdominal aorta without aneurysm or dissection. No intraperitoneal or retroperitoneal adenopathy. Skeletal structures demonstrate degenerative changes without acute osseous abnormality. Lung bases are clear. IMPRESSION: Very subtle focal diverticulitis involving the proximal sigmoid colon. No associated bowel obstruction, perforation, ascites or drainable collection/abscess. <Electronically signed by Gerson Pollard > 01/08/21 2061
[2021-01-08] MEDS ORDERED: OXYCODONE/APAP 5MG/325MG(BULK FOR ED) 1 TABLET PO ONE (17:25)
[2021-01-08] MEDS ORDERED: ONDANSETRON 4 MG ORAL DISINTEGRATING TAB PO ONE (17:25)
[2021-01-08] MEDS ORDERED: metroNIDAZOLE (FLAGYL) 500MG TABLET PO ONE (17:25)
[2021-01-08] MEDS ORDERED: CIPROFLOXACIN 500MG TABLET PO ONE (17:25)
[2021-01-08] MEDS ORDERED: CIPR-249 PO (17:27)
[2021-01-08] MEDS ORDERED: PERC5TAB12 PO (17:27)
[2021-01-08] MEDS ORDERED: FLAG500T PO (17:27)
[2021-01-08] MEDS ORDERED: ONDA4TAB6 PO (17:27)
[2021-01-08 18:12] VITALS: BP 136/75
== END 2021-01-08 18:25 | disposition home or self-care (01) ==
LOC: M ED 14:21
DX: K57.32 Diverticulitis of large intestine without perforation or abscess without bleeding (principal); I10 Essential (primary) hypertension; E78.5 Hyperlipidemia, unspecified; J45.909 Unspecified asthma, uncomplicated; E03.9 Hypothyroidism, unspecified; M54.50 Low back pain, unspecified; F33.0 Major depressive disorder, recurrent, mild; Z79.01 Long term (current) use of anticoagulants; Z79.899 Other long term (current) drug therapy
CPT/HCPCS: 36415; 74177; 80047; 80076; 81001; 83690; 85025; 93041; 96374; 99284; J1885; Q0162; Q9967; U0003

== ENCOUNTER → 2021-01-16 | Outpatient (REF) | payer OTHER ==
[~2021-01-16] MED LIST changes: +CIPR-249 PO; +FLAG500T PO; +ONDA4TAB6 PO; +PERC5TAB12 PO
== END ==
LOC: M LAB REF 11:38
PROVIDERS: ATTEND Internal Medicine
DX: G89.29 Other chronic pain (principal)

== ENCOUNTER → 2021-01-27 | Outpatient (CLI) | payer OTHER ==
[~2021-01-27] MED LIST changes: +ISOVUE-370 76% 100ML VIAL ONE
--- NOTE | 2021-01-27 16:12 | REP ---
INDICATION: DIVERTICULITIS. COMPARISON: 01/08/2021 TECHNIQUE: CT abdomen and pelvis performed without IV contrast. CT abdomen pelvis performed with IV contrast as well, following intravenous administration of 100 cc of Isovue 370. Sagittal and coronal reconstruction images are performed. FINDINGS: Lung bases: Remain clear. Liver: Liver is not not enlarged. The liver and spleen are homogeneous. No biliary dilatation. Gallbladder surgically absent. No ascites in the upper abdomen. . Atherosclerotic calcifications in the aorta without aneurysm. Gallbladder: Unremarkable. Spleen: Normal. Adrenals: Normal. Pancreas: Pancreas is unremarkable. Kidneys: Normal. Small and large bowel: Small bowel loops are contrast filled and unremarkable. Colon shows some scattered diverticulosis and with particular attention to the distal left colon sigmoid junction where there was subtle diverticulitis in the previous study. This is almost completely resolved with only 1 tiny area of infiltration of the fat adjacent to a couple of diverticula on images 89 through 91. Free fluid: None. Adenopathy: No periaortic, retroperitoneal or mesenteric pathologic sized in the lymphadenopathy in the abdomen or pelvis. Appendix: Not inflamed. Osseous structures: Degenerative disc changes greatest at L5-S1 but present throughout is facet arthropathy lower lumbar spine without compression fracture or destructive lesion. Visualized ribs sacrum, pelvis and hips without acute finding. Pelvis: Uterus absent the vaginal cuff intact. Bladder unremarkable. No mass. IMPRESSION: 1. Improvement in the area of infiltration of pericolonic fat distal left colon/sigmoid junction with only trace amounts of infiltration of the fat now remaining from an admittedly small area of involvement on the previous CT 01/08/2021. There is likely represents some very minimal residual/resolving diverticulitis. There is no perforation, abscess, ascites or other acute finding. Other chronic findings are stable. <Electronically signed by Brooks Hernández > 01/27/21 [id number]
== END ==
LOC: M PLAIMG 13:35
PROVIDERS: ATTEND Internal Medicine
DX: K57.92 Diverticulitis of intestine, part unspecified, without perforation or abscess without bleeding (principal)

== ENCOUNTER 2021-12-11 03:05 | Emergency (ER) | payer OTHER ==
[~2021-12-11] VITALS: Ht 167.6 cm; Wt 100.0 kg
[~2021-12-11 03:05] MED LIST changes: -ISOVUE-370 76% 100ML VIAL ONE; -MONT10TA10; +MONT10TA97
[2021-12-11] MEDS ORDERED: ASPIRIN 81 MG CHEW TABLET PO ONE ×2 (03:15→04:35)
[2021-12-11 03:54] LABS: BASO % 0.6 % (0.0-1.0); EOS # 0.2 10^3/uL (0.0-0.5); EOS % 3.1 % (0.0-3.0); HEMATOCRIT 40.9 % (36.0-47.0); LYMPH # 2.7 10^3/uL (1.5-5.0); LYMPH % 38.3 % (24.0-44.0); MEAN CORPUSCULAR HGB CONC 31.8 g/dl (32.0-36.5); MEAN CORPUSCULAR VOLUME 94.2 fl (80.0-96.0); MONO # 0.8 10^3/uL (0.0-0.8); NEUTROPHILS # 3.3 10^3/uL (1.5-8.5); NEUTROPHILS % 46.7 % (36.0-66.0); PLATELET COUNT, AUTOMATED 205 10^3/uL (150-450); RED BLOOD COUNT 4.34 10^6/uL (4.00-5.40); WHITE BLOOD COUNT 7.2 10^3/uL (4.0-10.0)
[2021-12-11 04:04] LABS: INR 0.9; PROTHROMBIN TIME 12.6 SECONDS (12.7-14.5)
[2021-12-11 04:05] LABS: PARTIAL THROMBOPLASTIN TIME 30.9 SECONDS (25.9-37.0)
[2021-12-11 04:07] LABS: D-DIMER QUANT 520.58 ng/ml (<500)
[2021-12-11 04:22] LABS: ALBUMIN 3.2 GM/DL (3.2-5.2); ALT/SGPT 32 U/L (12-78); BILIRUBIN,TOTAL 0.3 MG/DL (0.2-1.0); BLOOD UREA NITROGEN 14 MG/DL (7-18); CALCIUM LEVEL 8.9 MG/DL (8.8-10.2); CARBON DIOXIDE LEVEL 25 MEQ/L (21-32); CHLORIDE LEVEL 108 MEQ/L (98-107); CREATININE FOR GFR 0.89 MG/DL (0.55-1.30); GLOMERULAR FILTRATION RATE > 60.0 (>45); GLUCOSE, FASTING 175 MG/DL (70-100); NT-PRO BNP 36 PG/ML (<125); POTASSIUM SERUM 3.6 MEQ/L (3.5-5.1); SODIUM LEVEL 141 MEQ/L (136-145); TOTAL PROTEIN 6.7 GM/DL (6.4-8.2)
[2021-12-11 04:24] LABS: CK-MB VALUE MASS 1.4 NG/ML (<3.6); MB/CK RELATIVE INDEX 1.22 (< OR =4)
[2021-12-11] MEDS ORDERED: NITROGLYCERIN 0.4 MG SUBL TABLET SL PRN (04:35)
[2021-12-11 04:43] VITALS: BP 165/72
[2021-12-11] MEDS ORDERED: ISOVUE-370 76% 100ML VIAL As Ordered ONE (04:43)
[2021-12-11 05:22] LABS: CK-MB VALUE MASS 1.5 NG/ML (<3.6); MB/CK RELATIVE INDEX 1.42 (< OR =4)
[2021-12-11 05:36] VITALS: BP 162/70
== END 2021-12-11 05:45 | disposition home or self-care (01) ==
LOC: M ED 03:05
DX: R07.89 Other chest pain (principal); Z79.01 Long term (current) use of anticoagulants; Z79.890 Hormone replacement therapy; Z79.899 Other long term (current) drug therapy
CPT/HCPCS: 71045; 71275; 80053; 82550; 82553; 83880; 85025; 85379; 85610; 85730; 93005; 99284; Q9967

== ENCOUNTER → 2023-06-11 | Outpatient (CLI) | payer OTHER ==
[~2023-06-11] MED LIST changes: +IRBE150T27; -IRBE150T7
== END ==
LOC: M RAD 12:05
PROVIDERS: ATTEND Internal Medicine
DX: I70.213 Atherosclerosis of native arteries of extremities with intermittent claudication, bilateral legs (principal)

== ENCOUNTER 2023-07-26 17:11 | Emergency (ER) | payer OTHER ==
[~2023-07-26] VITALS: Ht 170.2 cm; Wt 106.2 kg
[2023-07-26 17:12] VITALS: BP 167/85; TEMP 97.9; O2SAT 95
[2023-07-26 17:48] LABS: BASO % 0.4 % (0.0-1.0); EOS # 0.1 10^3/uL (0.0-0.5); EOS % 1.3 % (0.0-3.0); HEMATOCRIT 41.8 % (36.0-47.0); HEMOGLOBIN 13.7 g/dl (12.0-15.5); LYMPH # 2.8 10^3/uL (1.5-5.0); LYMPH % 27.6 % (24.0-44.0); MEAN CORPUSCULAR HEMOGLOBIN 29.9 pg (27.0-33.0); MEAN CORPUSCULAR HGB CONC 32.8 g/dl (32.0-36.5); MEAN CORPUSCULAR VOLUME 91.3 fl (80.0-96.0); MONO # 1.4 10^3/uL (0.0-0.8); MONO % 14.1 % (2.0-8.0); NEUTROPHILS # 5.7 10^3/uL (1.5-8.5); NEUTROPHILS % 56.3 % (36.0-66.0); PLATELET COUNT, AUTOMATED 200 10^3/uL (150-450); RED BLOOD COUNT 4.58 10^6/uL (4.00-5.40); WHITE BLOOD COUNT 10.2 10^3/uL (4.0-10.0)
[2023-07-26] MEDS ORDERED: HYDR-643 (17:59)
[2023-07-26] MEDS ORDERED: GABA-284 (17:59)
[2023-07-26] MEDS ORDERED: LEVO200T4 (17:59)
[2023-07-26 18:17] LABS: ALBUMIN 3.5 G/DL (3.2-5.2); BILIRUBIN,DIRECT 0.3 MG/DL (<0.4); BILIRUBIN,TOTAL 0.9 MG/DL (0.3-1.2); TOTAL PROTEIN 7.1 G/DL (5.7-8.2)
[2023-07-26] MEDS ORDERED: ISOVUE-370 76% 100ML VIAL As Ordered ONE (18:26)
[2023-07-26] MEDS: ONDANSETRON 4MG 2ML VIAL IV ONE (18:47)
[2023-07-26] MEDS: NS 1,000 ML IV ONE (18:48)
[2023-07-26] MEDS: ACETAMINOPHEN *IV* 1,000 MG in IV 1 EA IV ONE (18:48)
[2023-07-26] MEDS ORDERED: HYDR-3713 PO (19:34)
[2023-07-26] MEDS ORDERED: AMOX875T2 PO (19:35)
== END 2023-07-26 19:45 | disposition home or self-care (01) ==
LOC: M ED 17:11
DX: K57.32 Diverticulitis of large intestine without perforation or abscess without bleeding (principal); I10 Essential (primary) hypertension; E78.5 Hyperlipidemia, unspecified; E03.9 Hypothyroidism, unspecified; F32.A Depression, unspecified; F41.9 Anxiety disorder, unspecified; Z90.49 Acquired absence of other specified parts of digestive tract; Z79.899 Other long term (current) drug therapy; Z79.890 Hormone replacement therapy
CPT/HCPCS: 74177; 80047; 80076; 81001; 83690; 85025; 96365; 96375; 99283; J0131; J2405; Q9967

== ENCOUNTER 2023-11-09 15:43 | Emergency (ER) | payer OTHER ==
[~2023-11-09] VITALS: Ht 165.1 cm; Wt 100.9 kg
[~2023-11-09 15:43] MED LIST changes: +AMOX875T2 PO; +GABA-284; +HYDR-3713 PO; +HYDR-643; +LEVO200T4; +ONDA-282 PO; -ONDA4TAB6 PO
[2023-11-09] MEDS ORDERED: JARD1TAB PO (15:49)
[2023-11-09 17:55] VITALS: BP 135/93; TEMP 97.9; O2SAT 97
== END 2023-11-09 18:41 | disposition home or self-care (01) ==
LOC: M ED 15:43
DX: M71.21 Synovial cyst of popliteal space [Baker], right knee (principal); M17.11 Unilateral primary osteoarthritis, right knee; L98.9 Disorder of the skin and subcutaneous tissue, unspecified; I10 Essential (primary) hypertension; E78.5 Hyperlipidemia, unspecified; J45.909 Unspecified asthma, uncomplicated; E03.9 Hypothyroidism, unspecified; Z79.01 Long term (current) use of anticoagulants; Z79.899 Other long term (current) drug therapy

== ENCOUNTER → 2024-01-07 | Outpatient (REF) | payer OTHER, MEDICAID ==
[~2024-01-07] MED LIST changes: +GABA-1172; -GABA-282; +JARD1TAB PO
[2024-01-07 11:51] LABS: APPEARANCE, URINE CLEAR (CLEAR); BACTERIA, URINE AUTO NEGATIVE (NEGATIVE); BILIRUBIN, URINE AUTO NEGATIVE (NEGATIVE); BLOOD, URINE BLOOD 1+ (NEGATIVE); COLOR, URINE STRAW (YELLOW); GLUCOSE, URINE (UA) AUTO 3+ mg/dL (NEGATIVE); KETONE, URINE AUTO NEGATIVE (NEGATIVE); LEUKOCYTE ESTERASE, URINE AUTO NEGATIVE (NEGATIVE); MUCUS, URINE SMALL (NEGATIVE); NITRITE, URINE AUTO NEGATIVE (NEGATIVE); PROTEIN, URINE AUTO NEGATIVE (NEGATIVE); RBC, URINE AUTO 1 /HPF (0-3); SPECIFIC GRAVITY URINE AUTO 1.016 (1.002-1.035); SQUAMOUS EPITHELIAL CELL UR AU 4 /HPF (0-6); UROBILINOGEN, URINE AUTO 0.2 mg/dL (0.0-2.0); WBC, URINE AUTO 0 /HPF (0-3)
== END ==
LOC: M SMT 10:22
PROVIDERS: ATTEND Nurse Practitioner Family
DX: N39.41 Urge incontinence (principal)

== ENCOUNTER 2024-04-04 15:58 | Emergency (ER) | payer OTHER ==
[~2024-04-04] VITALS: Ht 167.6 cm; Wt 93.2 kg
[2024-04-04 16:20] VITALS: TEMP 97.2
[2024-04-04 16:51] LABS: BASO # 0.1 10^3/uL (0.0-0.2); BASO % 0.5 % (0.0-1.0); EOS # 0.1 10^3/uL (0.0-0.5); EOS % 0.9 % (0.0-3.0); HEMATOCRIT 45.7 % (36.0-47.0); LYMPH # 2.2 10^3/uL (1.5-5.0); LYMPH % 21.1 % (24.0-44.0); MEAN CORPUSCULAR HEMOGLOBIN 30.6 pg (27.0-33.0); MEAN CORPUSCULAR HGB CONC 32.8 g/dl (32.0-36.5); MEAN CORPUSCULAR VOLUME 93.3 fl (80.0-96.0); MONO # 0.9 10^3/uL (0.0-0.8); MONO % 8.3 % (2.0-8.0); NEUTROPHILS # 7.3 10^3/uL (1.5-8.5); NEUTROPHILS % 68.8 % (36.0-66.0); PLATELET COUNT, AUTOMATED 189 10^3/uL (150-450); WHITE BLOOD COUNT 10.6 10^3/uL (4.0-10.0)
[2024-04-04 17:14] LABS: BLOOD UREA NITROGEN 19 MG/DL (9-23); CALCIUM LEVEL 10.1 MG/DL (8.3-10.6); CARBON DIOXIDE LEVEL 24 MMOL/L (20-31); CHLORIDE LEVEL 104 MMOL/L (98-107); CK-MB VALUE MASS 4.5 NG/ML (<3.6); CREATININE FOR GFR 0.91 MG/DL (0.55-1.30); GLOMERULAR FILTRATION RATE > 60.0 (>45); GLUCOSE, FASTING 142 MG/DL (74-106); POTASSIUM SERUM 3.7 MMOL/L (3.5-5.1); SODIUM LEVEL 142 MMOL/L (136-145)
[2024-04-04 17:35] LABS: CPK CREATINE PHOSPHOKINASE 76 U/L (34-145); MB/CK RELATIVE INDEX 5.92 (< OR =4)
[2024-04-04] MEDS ORDERED: ASPIRIN 81MG CHEW TABLET PO ONE (17:50)
[2024-04-04] MEDS: HEPARIN SOD (PORCINE) 5000UNITS/ML 1ML VIAL/SYRINGE IV ONE (18:17)
[2024-04-04] MEDS: HEPARIN DRIP 25,000 UNITS in IV 1 EA IV SCH (18:18)
[2024-04-04 18:21] LABS: INR 1.01; PROTHROMBIN TIME 13.6 SECONDS (12.5-14.5)
[2024-04-04 18:54] LABS: PARTIAL THROMBOPLASTIN TIME 27.3 SECONDS (24.8-34.2)
[2024-04-04 19:18] LABS: CK-MB VALUE MASS 3.9 NG/ML (<3.6)
[2024-04-04 19:21] LABS: MB/CK RELATIVE INDEX 4.53 (< OR =4)
[2024-04-04 19:28] VITALS: BP 160/91; O2SAT 94
[2024-04-04 19:36] LABS: CK-MB VALUE MASS 3.8 NG/ML (<3.6)
[2024-04-04 19:38] LABS: MB/CK RELATIVE INDEX 4.52 (< OR =4)
== END 2024-04-04 19:31 | disposition short-term general hospital (02) ==
LOC: M ED 15:58
DX: I21.4 Non-ST elevation (NSTEMI) myocardial infarction (principal); R09.02 Hypoxemia; R00.0 Tachycardia, unspecified; F32.A Depression, unspecified; M54.50 Low back pain, unspecified; Z86.79 Personal history of other diseases of the circulatory system; Z79.899 Other long term (current) drug therapy

== ENCOUNTER 2024-04-12 00:14 | Emergency (ER) | payer OTHER ==
[~2024-04-12] VITALS: Ht 167.6 cm; Wt 103.3 kg
[2024-04-12 00:54] LABS: BASO # 0.1 10^3/uL (0.0-0.2); BASO % 0.5 % (0.0-1.0); EOS # 0.1 10^3/uL (0.0-0.5); EOS % 1.4 % (0.0-3.0); HEMATOCRIT 43.3 % (36.0-47.0); LYMPH # 2.1 10^3/uL (1.5-5.0); LYMPH % 20.7 % (24.0-44.0); MEAN CORPUSCULAR HEMOGLOBIN 30.4 pg (27.0-33.0); MEAN CORPUSCULAR HGB CONC 32.3 g/dl (32.0-36.5); MEAN CORPUSCULAR VOLUME 93.9 fl (80.0-96.0); MONO # 0.7 10^3/uL (0.0-0.8); MONO % 6.6 % (2.0-8.0); NEUTROPHILS % 70.3 % (36.0-66.0); PLATELET COUNT, AUTOMATED 173 10^3/uL (150-450); RED BLOOD COUNT 4.61 10^6/uL (4.00-5.40)
[2024-04-12 01:14] LABS: INR 1.13; PROTHROMBIN TIME 14.8 SECONDS (12.5-14.5)
[2024-04-12 01:33] LABS: ALBUMIN 3.1 G/DL (3.2-5.2); BILIRUBIN,DIRECT 0.3 MG/DL (<0.4); CALCIUM LEVEL 8.7 MG/DL (8.3-10.6); CK-MB VALUE MASS 1.3 NG/ML (<3.6); CREATININE FOR GFR 1.01 MG/DL (0.55-1.30); GLOMERULAR FILTRATION RATE 58.9 (>45); MB/CK RELATIVE INDEX 1.14 (< OR =4); POTASSIUM SERUM 5.9 MMOL/L (3.5-5.1); TOTAL PROTEIN 7.4 G/DL (5.7-8.2)
[2024-04-12] MEDS ORDERED: ISOVUE-370 76% 100ML VIAL As Ordered ONE (01:37)
[2024-04-12 02:20] LABS: CK-MB VALUE MASS 1.6 NG/ML (<3.6)
[2024-04-12] MEDS ORDERED: HEPARIN SOD (PORCINE) 5000UNITS/ML 1ML VIAL/SYRINGE IV PRN (02:20)
[2024-04-12 02:21] LABS: MB/CK RELATIVE INDEX 1.73 (< OR =4)
[2024-04-12 02:56] LABS: HEMATOCRIT 41.8 % (36.0-47.0); HEMOGLOBIN 13.7 g/dl (12.0-15.5); MEAN CORPUSCULAR HEMOGLOBIN 30.8 pg (27.0-33.0); MEAN CORPUSCULAR HGB CONC 32.8 g/dl (32.0-36.5); MEAN CORPUSCULAR VOLUME 93.9 fl (80.0-96.0); PLATELET COUNT, AUTOMATED 157 10^3/uL (150-450); RED BLOOD COUNT 4.45 10^6/uL (4.00-5.40); WHITE BLOOD COUNT 9.8 10^3/uL (4.0-10.0)
[2024-04-12] MEDS: HEPARIN SOD (PORCINE) 5000UNITS/ML 1ML VIAL/SYRINGE IV ONE (03:03)
[2024-04-12] MEDS: HEPARIN DRIP 25,000 UNITS in IV 1 EA IV SCH (03:04)
[2024-04-12] MEDS: CALCIUM GLUCONATE 1,000 MG in DEXTROSE 5% (D5W) MINI-BAG PLU 100 ML IV ONE (03:13)
[2024-04-12] MEDS: HumuLIN R (REGULAR) INSULIN (NovoLIN R) **100U/ML** PER UNIT IV ONE (03:14)
[2024-04-12 04:45] VITALS: TEMP 97.2
[2024-04-12] MEDS: DEXTROSE 50% 50ML SYRINGE IV STA (05:53)
[2024-04-12 06:19] VITALS: BP 124/74; O2SAT 94
== END 2024-04-12 06:37 | disposition short-term general hospital (02) ==
LOC: M ED 00:14
DX: I26.02 Saddle embolus of pulmonary artery with acute cor pulmonale (principal); I25.10 Atherosclerotic heart disease of native coronary artery without angina pectoris; Z86.718 Personal history of other venous thrombosis and embolism; G47.30 Sleep apnea, unspecified; Z98.61 Coronary angioplasty status; Z79.01 Long term (current) use of anticoagulants; Z79.899 Other long term (current) drug therapy
CPT/HCPCS: 71045; 71275; 80048; 80076; 82550; 82553; 83690; 83880; 84484; 85025; 85027; 85610; 85730; 87486; 87581; 87633; 87798; 93005; 93041; 94760; 96365; 96366; 96368; 96375; 99285; J0612; J1815; Q9967

== ENCOUNTER → 2024-07-21 | Outpatient (CLI) | payer OTHER | LOC: M CARPUL 10:44 | PROVIDERS: ATTEND Internal Medicine | DX: I22.2 Subsequent non-ST elevation (NSTEMI) myocardial infarction (principal); I08.2 Rheumatic disorders of both aortic and tricuspid valves ==

== ENCOUNTER 2024-09-24 13:39 | Outpatient (RCR) | payer OTHER | END 2024-10-22 | LOC: M PT 13:39 | PROVIDERS: ATTEND Physician Assistant | DX: M25.561 Pain in right knee (principal) ==

== ENCOUNTER 2024-11-19 09:32 | Emergency (ER) | payer OTHER ==
[~2024-11-19] VITALS: Ht 167.6 cm; Wt 110.4 kg
[~2024-11-19 09:32] MED LIST changes: -HYDR-643; +HYDR-643 PO; -PRAM1TAB7; +PRAM1TAB7 PO
[2024-11-19 09:57] LABS: BASO # 0.0 10^3/uL (0.0-0.2); BASO % 0.7 % (0.0-1.0); EOS # 0.2 10^3/uL (0.0-0.5); EOS % 4.1 % (0.0-3.0); LYMPH # 2.2 10^3/uL (1.5-5.0); LYMPH % 39.0 % (24.0-44.0); MONO # 0.8 10^3/uL (0.0-0.8); MONO % 13.8 % (2.0-8.0); NEUTROPHILS # 2.3 10^3/uL (1.5-8.5); NEUTROPHILS % 42.2 % (36.0-66.0); PLATELET COUNT, AUTOMATED 229 10^3/uL (150-450)
[2024-11-19 10:09] LABS: INR 1.64
[2024-11-19] MEDS ORDERED: ISOVUE-370 76% 100 ML VIAL As Ordered ONE (10:15)
[2024-11-19 10:33] LABS: CALCIUM LEVEL 9.8 MG/DL (8.3-10.6); CARBON DIOXIDE LEVEL 26.0 MMOL/L (20-31); CHLORIDE LEVEL 105.0 MMOL/L (98-107); CK-MB VALUE MASS 2.1 NG/ML (<3.6); CREATININE FOR GFR 0.78 MG/DL (0.55-1.30); GLOMERULAR FILTRATION RATE 84.8 (>45); POTASSIUM SERUM 4.1 MMOL/L (3.5-5.1); SODIUM LEVEL 144.0 MMOL/L (136-145)
[2024-11-19 10:37] LABS: CPK CREATINE PHOSPHOKINASE 133.0 U/L (34-145); MB/CK RELATIVE INDEX 1.57 (< OR =4)
[2024-11-19] MEDS ORDERED: NITR0.4S14 PO (10:47)
[2024-11-19] MEDS ORDERED: LEVO150C2 PO (10:47)
[2024-11-19] MEDS ORDERED: XARE20TA PO (10:47)
[2024-11-19] MEDS ORDERED: MONT10TA97 PO (10:47)
[2024-11-19] MEDS ORDERED: ATOR80TA59 PO (10:47)
[2024-11-19] MEDS ORDERED: METOPROLOL 5 MG/5 ML VIAL IV ONE (11:23)
[2024-11-19] MEDS ORDERED: TROS60CA2 PO (11:25)
[2024-11-19] MEDS ORDERED: FURO20TA2 PO (11:25)
[2024-11-19] MEDS ORDERED: HOME MED LIST COMPLETE! XX SCH (11:25)
[2024-11-19] MEDS: METOPROLOL 5 MG/5 ML VIAL IV SCH (11:35)
[2024-11-19] MEDS: METOPROLOL TART 50 MG TAB PO ONE (11:44)
[2024-11-19 14:07] VITALS: BP 130/60
[2024-11-19] MEDS: FUROSEMIDE 40 MG/4 ML VIAL IV ONE (14:07)
[2024-11-19] MEDS ORDERED: LOPR1TAB6 PO (15:22)
[2024-11-19 15:38] VITALS: BP 137/98; TEMP 98.2; O2SAT 96
== END 2024-11-19 15:48 | disposition home or self-care (01) ==
LOC: M ED 09:32
DX: I48.91 Unspecified atrial fibrillation (principal); E11.9 Type 2 diabetes mellitus without complications; E78.5 Hyperlipidemia, unspecified; G25.81 Restless legs syndrome; Z98.61 Coronary angioplasty status; Z86.711 Personal history of pulmonary embolism; Z86.718 Personal history of other venous thrombosis and embolism; Z79.899 Other long term (current) drug therapy
CPT/HCPCS: 71045; 71275; 80047; 80048; 82550; 82553; 84484; 85025; 85610; 85730; 93005; 93041; 94760; 96374; 99285; J0616; J1938; Q9967

== ENCOUNTER 2025-03-06 09:48 | Emergency (ER) | payer OTHER ==
[~2025-03-06] VITALS: Ht 167.6 cm; Wt 107.0 kg
[~2025-03-06 09:48] MED LIST changes: +ATOR80TA59 PO; +FURO20TA2 PO; +LEVO150C2 PO; +LOPR1TAB6 PO; +MONT10TA97 PO; +NITR0.4S14 PO; +TROS60CA2 PO; +XARE20TA PO
[2025-03-06 11:28] LABS: BASO # 0.0 10^3/uL (0.0-0.2); BASO % 0.5 % (0.0-1.0); EOS # 0.0 10^3/uL (0.0-0.5); EOS % 0.3 % (0.0-3.0); LYMPH # 1.3 10^3/uL (1.5-5.0); LYMPH % 20.6 % (24.0-44.0); MONO # 1.1 10^3/uL (0.0-0.8); MONO % 17.7 % (2.0-8.0); NEUTROPHILS # 3.9 10^3/uL (1.5-8.5); NEUTROPHILS % 60.6 % (36.0-66.0); PLATELET COUNT, AUTOMATED 153 10^3/uL (150-450)
[2025-03-06 11:54] LABS: CALCIUM LEVEL 8.8 MG/DL (8.3-10.6); CARBON DIOXIDE LEVEL 28 MMOL/L (20-31); CHLORIDE LEVEL 103 MMOL/L (98-107); CK-MB VALUE MASS < 1.0 NG/ML (<3.6); CREATININE FOR GFR 0.99 MG/DL (0.55-1.30); GLOMERULAR FILTRATION RATE 63.7 (>45); POTASSIUM SERUM 4.1 MMOL/L (3.5-5.1); SODIUM LEVEL 140 MMOL/L (136-145)
[2025-03-06 11:55] LABS: CPK CREATINE PHOSPHOKINASE 121 U/L (34-145)
[2025-03-06] MEDS: ACETAMINOPHEN 500 MG TAB PO ONE (12:31)
[2025-03-06 13:15] VITALS: BP 129/78; TEMP 100.4; O2SAT 95
== END 2025-03-06 13:28 | disposition home or self-care (01) ==
LOC: M ED 09:48
DX: U07.1 COVID-19 (principal); E03.9 Hypothyroidism, unspecified; Z86.711 Personal history of pulmonary embolism; J45.909 Unspecified asthma, uncomplicated; F32.A Depression, unspecified; I25.2 Old myocardial infarction; I10 Essential (primary) hypertension; Z79.890 Hormone replacement therapy; Z79.899 Other long term (current) drug therapy